=== PATIENT | female | born 1960 | race American Indian/Alaskan Native ===

== ENCOUNTER 2022-05-20 18:48 | Inpatient (IN) | payer SELFPAY ==
[2022-05-20] MEDS ORDERED: SODIUM CHLORIDE 0.9% 500 ML 500 ML IV ONE (18:51)
--- NOTE | 2022-05-20 18:53 | Emergency Department Report ---
ED General Adult HPI - General Chief complaint: Syncope Stated complaint: FALL/SYNCOPE Time Seen by Provider: 05/20/22 18:51 Source: patient, EMS (Verbal report received from emergency medical services. EMS documentation not available at time of chart dictation ), RN notes reviewed Mode of arrival: Stretcher Limitations: Physical Limitation - History of Present Illness Initial comments: The patient was evaluated in the emergency department for symptoms described in the history of present illness. He/she was evaluated in the context of the global COVID-19 pandemic, which necessitated consideration that the patient might be at risk for infection with the virus that causes COVID-19. Institutional protocols and algorithms that pertain to the evaluation of patients at risk for COVID-19 are in a state of rapid change based on information released by regulatory bodies including the CDC and federal and state organizations. These policies and algorithms were followed during the patient's care in the emergency department. Please note that these policies, procedures and recommendations changed on a rapid basis. This is a 62-year-old female with a body mass index of 41, and diabetes, who presents to the emergency department. The patient reports that she was in her usual state of health and had just gotten out of the shower, when she felt dizzy and lightheaded when attempting to use the bathroom. She denies antecedent headache, neck pain, chest pain, abdominal pain, shortness of breath. Apparently, she lost consciousness, and 911 was activated. Apparently as per emergency medical services, the patient was confused, with a facial droop, and slurred speech. It is now resolved. The patient only complains of hip pain and right leg pain. She denies headache, neck pain, chest pain, abdominal pain, shortness of breath, and she denies travel, surgery, immobilization, DVT and pulmonary embolism risk factors. -: Sudden Location: right, lower extremity Quality: aching Consistency: constant Improves with: other (Pain increases with palpation and range of motion. Decreases with rest.) - Related Data Allergies Allergy/AdvReac Type Severity Reaction Status Date / Time No Known Allergies Allergy Unverified 05/20/22 19:47 ED Review of Systems ROS: Stated complaint: FALL/SYNCOPE Other details as noted in HPI Constitutional: malaise. denies: fever Eyes: denies: eye discharge ENT: denies: epistaxis Respiratory: denies: wheezing Cardiovascular: syncope. denies: chest pain Gastrointestinal: denies: abdominal pain Musculoskeletal: back pain, arthralgia, myalgia Neurological: weakness Hematological/Lymphatic: denies: easy bleeding ED Physical Exam - General Limitations: Physical Limitation General appearance: alert, anxious, obese - Head Head exam: Present: atraumatic, normocephalic - Eye Eye exam: Present: normal appearance, EOMI, other (Visual acuity intact to finger counting, color perception, reading at a close distance). Absent: nystagmus - ENT ENT exam: Present: normal exam, normal orophraynx, mucous membranes moist, normal external ear exam - Neck Neck exam: Present: normal inspection, full ROM. Absent: tenderness, meningi smus - Respiratory Respiratory exam: Present: normal lung sounds bilaterally. Absent: respiratory distress, wheezes, rales, rhonchi, stridor, decreased breath sounds - Cardiovascular Cardiovascular Exam: Present: regular rate, normal rhythm, normal heart sounds. Absent: bradycardia, tachycardia, irregular rhythm, systolic murmur, diastolic murmur, rubs, gallop - GI/Abdominal GI/Abdominal exam: Present: soft. Absent: distended, tenderness, guarding, rebound, rigid, pulsatile mass - Extremities Exam Extremities exam: Present: normal inspection, full ROM (Full range of motion bilateral upper extremities and bilateral feet.), tenderness (There is right hip tenderness), joint swelling (Bilateral knee swelling.), other (2+ pulses noted i n the bilateral upper and lower extremities. There is no palpable cord. negative Homans sign. Muscular compartments are soft. The pelvis is stable.). Absent: pedal edema, calf tenderness - Back Exam Back exam: Present: normal inspection, paraspinal tenderness. Absent: tenderness, CVA tenderness (R), CVA tenderness (L) - Neurological Exam Neurological exam: Present: alert, oriented X3, other (No facial droop. Tongue midline. Extraocular movements intact bilaterally. Facial sensation intact to light touch in V1, V2, V3 distribution bilaterally. 5 and a 5 strength in 4 extremities. Sensation intact to light touch in 4 extremities.) - Psychiatric Psychiatric exam: Present: anxious - Skin Skin exam: Present: warm, dry, intact, normal color. Absent: rash ED Course Vital Signs 05/20/22 19:40 Temperature 98.8 F Pulse Rate 92 H Respiratory 100 H Rate Blood Pressure 158/70 - Reevaluation(s) Reevaluation #1: 05/20/22 19:54 Differential diagnosis, include but not limited to: Orthostasis, vagal event, structural cardiac disease, intracranial injury, TIA Assessment and plan: 62-year-old female status post loss of consciousness after attempting to use the bathroom and getting out of the shower, which was accompanied by a facial droop and slurred speech which is now resolved. Patient has a GCS of 15 and an NIH score of 0. She is not a tPA candidate. Her examination does not suggest a large vessel occlusion. Patient seen in conjunction with stroke neurologist, Dr. Rhys Galo, who agrees with the aforementioned. Patient is found to have a leukocytosis, which is likely a stress reaction. She appears to have an elevated troponin, which is likely a type II troponin leak. She also appears to have high glucose. CT scan of the brain shows no acute findings. X-rays thus far have demonstrated no fracture or dislocation. I suspect a vagal event with reactive laboratory studies, however, given age, vascular risk factors, symptoms, overall clinical presentation, we will treat with fluids, insulin, and aspirin, and admit patient to the medical service. 05/20/22 20:20 Discussed all findings with patient and daughter with patient's permission. They are agreeable to admission and hospitalization. Moving 4 extremities. Daughter offers additional history. Appears to have possible early onset dementia, disability, poor mobility, and is currently not insured. Extensive discussion had with daughter regarding options including Medicaid, and affordable care [email or web address]. Patient may also benefit from physical therapy/rehabilitation, discussed this with family and patient, defer to inpatient team to coordinate physical therapy evaluation 05/20/22 21:05 Patient passed swallow screen. Oncoming ER physician to contact hospital physician sylvester to admit to the medical service. ED Medical Decision Making - Lab Data Result diagrams: 05/20/22 19:02 05/20/22 19:02 Vital Signs 05/20/22 19:40 Temperature 98.8 F Pulse Rate 92 H Respiratory 100 H Rate Blood Pressure 158/70 Lab Results 05/20/22 05/20/22 05/20/22 Range/Units 19:02 19:02 19:02 WBC 18.9 H (4.5-11.0) K/mm3 RBC 4.67 (3.65-5.03) M/mm3 Hgb 13.7 (10.1-14.3) gm/dl Hct 41.6 (30.3-42.9) % MCV 89 (79-97) fl MCH 29 (28-32) pg MCHC 33 (30-34) % RDW 12.2 L (13.2-15.2) % Plt Count 333 (140-440) K/mm3 Lymph % (Auto) 8.7 L (13.4-35.0) % [place] % (Auto) 8.1 H (0.0-7.3) % Eos % (Auto) 0.3 (0.0-4.3) % Baso % (Auto) 0.4 (0.0-1.8) % Lymph # (Auto) 1.6 (1.2-5.4) K/mm3 [place] # (Auto) 1.5 H (0.0-0.8) K/mm3 Eos # (Auto) 0.0 (0.0-0.4) K/mm3 Baso # (Auto) 0.1 (0.0-0.1) K/mm3 Seg Neutrophils % 82.5 H (40.0-70.0) % Seg Neutrophils # 15.6 H (1.8-7.7) K/mm3 PT 14.0 (12.2-14.9) Sec. INR 0.97 (0.87-1.13) Sodium 138 (137-145) mmol/L Potassium 3.6 (3.6-5.0) mmol/L Chloride 97.0 L (98-107) mmol/L Carbon Dioxide 25 (22-30) mmol/L Anion Gap 20 mmol/L BUN 16 (7-17) mg/dL Creatinine 0.9 (0.6-1.2) mg/dL Estimated GFR > 60 ml/min BUN/Creatinine Ratio 18 % Glucose 307 H (65-100) mg/dL Calcium 9.7 (8.4-10.2) mg/dL Magnesium 1.80 (1.7-2.3) mg/dL Total Bilirubin 0.60 (0.1-1.2) mg/dL AST 16 (5-40) units/L ALT 10 (7-56) units/L Alkaline Phosphatase 91 (35-129) units/L Total Creatine Kinase 237 H (30-135) units/L CK-MB (CK-2) 18.3 H (0.0-4.0) ng/mL CK-MB (CK-2) Rel Index 7.7 H (0-4) Troponin T 0.097 H (0.00-0.029) ng/mL Total Protein 8.0 (6.3-8.2) g/dL Albumin 3.6 L (3.9-5) g/dL Albumin/Globulin Ratio 0.8 % TSH (0.270-4.200) mlU/mL Plasma/Serum Alcohol (0-0.07) % 05/20/22 05/20/22 05/20/22 Range/Units 19:02 19:02 19:02 WBC (4.5-11.0) K/mm3 RBC (3.65-5.03) M/mm3 Hgb (10.1-14.3) gm/dl Hct (30.3-42.9) % MCV (79-97) fl MCH (28-32) pg MCHC (30-34) % RDW (13.2-15.2) % Plt Count (140-440) K/mm3 Lymph % (Auto) (13.4-35.0) % [place] % (Auto) (0.0-7.3) % Eos % (Auto) (0.0-4.3) % Baso % (Auto) (0.0-1.8) % Lymph # (Auto) (1.2-5.4) K/mm3 [place] # (Auto) (0.0-0.8) K/mm3 Eos # (Auto) (0.0-0.4) K/mm3 Baso # (Auto) (0.0-0.1) K/mm3 Seg Neutrophils % (40.0-70.0) % Seg Neutrophils # (1.8-7.7) K/mm3 PT (12.2-14.9) Sec. INR (0.87-1.13) Sodium (137-145) mmol/L Potassium (3.6-5.0) mmol/L Chloride (98-107) mmol/L Carbon Dioxide (22-30) mmol/L Anion Gap mmol/L BUN (7-17) mg/dL Creatinine (0.6-1.2) mg/dL Estimated GFR ml/min BUN/Creatinine Ratio % Glucose (65-100) mg/dL Calcium (8.4-10.2) mg/dL Magnesium (1.7-2.3) mg/dL Total Bilirubin (0.1-1.2) mg/dL AST (5-40) units/L ALT (7-56) units/L Alkaline Phosphatase (35-129) units/L Total Creatine Kinase 241 H (30-135) units/L CK-MB (CK-2) (0.0-4.0) ng/mL CK-MB (CK-2) Rel Index (0-4) Troponin T (0.00-0.029) ng/mL Total Protein (6.3-8.2) g/dL Albumin (3.9-5) g/dL Albumin/Globulin Ratio % TSH 3.810 (0.270-4.200) mlU/mL Plasma/Serum Alcohol < 0.01 (0-0.07) % - EKG Data -: EKG Interpreted by Hi EKG shows normal: sinus rhythm Rate: normal - EKG Data 05/20/22 19:50 8 EKG is interpreted at 19: 48 This is a sinus rhythm, with a rate of 77 bpm. There is a leftward axis deviation. There is normal P wave axis. There is motion artifact. There is left ventricular hypertrophy. This is an abnormal EKG. This is not a STEMI. There is normal P wave axis. The QTC is 4 3 6 ms. 05/20/22 19:51 There is no prior EKG available for comparison - Radiology Data Radiology results: pending, report reviewed, image reviewed NONENHANCED CT SCAN OF THE HEAD: INDICATION / CLINICAL INFORMATION: 62 years Female; Syncope, slurred speech, facial droop, now resolve. TECHNIQUE: Routine CT head without contrast. All CT scans at this location are performed using CT dose reduction for ALARA by means of automated exposure control. COMPARISON: None. FINDINGS: BRAIN / INTRACRANIAL CONTENTS: No intracerebral hemorrhage or stroke mimics No acute hemorrhage, mass effect, midline shift, hydrocephalus, or acute, large territorial infarct. Chronic lacune in the body of left caudate; lateral ventricles are generous, disproportionate to high convexity cortical sulci; temporal horns not dilated in par with the lateral ventricles; corpus callosum normal periventricular. Subtle periventricular low-attenuation areas due to chronic small vessel disease Low-attenuation areas due to chronic small vessel disease CRANIOCERVICAL JUNCTION: No significant abnormality. ORBITS: No significant abnormality of visualized orbits. SINUSES / MASTOIDS: Minimal mucosal thickening in the left axillary sinus and some of the ethmoid air cells ADDITIONAL FINDINGS: None. IMPRESSION: No intracerebral hemorrhage No acute focal parenchymal lesion in the brain Signer Name: Guilherme Sol MD Signed: 05/20/2022 6:41 PM Workstation Name: [id number] CHEST 1 VIEW 05/20/2022 7:38 PM INDICATION / CLINICAL INFORMATION: Fall, right leg pain. COMPARISON: None available. FINDINGS: SUPPORT DEVICES: None. HEART / MEDIASTINUM: No significant abnormality. LUNGS / PLEURA: No significant pulmonary or pleural abnormality. No pneumothorax. ADDITIONAL FINDINGS: No significant additional findings. IMPRESSION: 1. No acute findings. Right femur 5 views INDICATION: Pain FINDINGS: Degenerative change right hip. No periosteal reaction is seen. No soft tissue abnormality is seen. Advanced degenerative change in the right knee. Pelvis one view INDICATION: Pain FINDI NGS: Degenerative change bilateral hips. Degenerative change in lower lumbar spine. Bowel loops obscure visualization. No displaced fracture. Signer Name: Jean-Paul Macias MD Signed: 05/20/2022 7:03 PM Workstation Name: [email or web address] Critical care attestation.: If time is entered above; I have spent that time in minutes in the direct care of this critically ill patient, excluding procedure time. ED Disposition Clinical Impression: Syncope, Hyperglycemia, TIA (transient ischemic attack) Disposition: 09 ADMITTED INPATIENT Is pt being admited?: Yes Does the pt Need Aspirin: No Condition: Good Instructions: Syncope (ED)
[2022-05-20 19:28] LABS: Basophils # (Auto) 0.1 K/mm3 (0.0-0.1); Basophils % (Auto) 0.4 % (0.0-1.8); Eosinophils % (Auto) 0.3 % (0.0-4.3); Hematocrit 41.6 % (30.3-42.9); Hemoglobin 13.7 gm/dl (10.1-14.3); Lymphocytes # (Auto) 1.6 K/mm3 (1.2-5.4); Lymphocytes % (Auto) 8.7 % (13.4-35.0); Mean Corpuscular HGB Conc 33 % (30-34); Mean Corpuscular Volume 89 fl (79-97); Monocytes # (Auto) 1.5 K/mm3 (0.0-0.8); Monocytes % (Auto) 8.1 % (0.0-7.3); Platelet Count 333 K/mm3 (140-440); Red Blood Count 4.67 M/mm3 (3.65-5.03); Red Cell Distribution Width 12.2 % (13.2-15.2)
[2022-05-20 19:35] LABS: Creatine Kinase MB 18.3 ng/mL (0.0-4.0)
[2022-05-20 19:36] LABS: Alanine Aminotransferase 10 units/L (7-56); Albumin 3.6 g/dL (3.9-5); BUN/Creatinine Ratio 18; Blood Urea Nitrogen 16 mg/dL (7-17); Calcium 9.7 mg/dL (8.4-10.2); Hemolysis Index 5
--- NOTE | 2022-05-20 19:45 | Cat Scan Report ---
NONENHANCED CT SCAN OF THE HEAD: INDICATION / CLINICAL INFORMATION: 62 years Female; Syncope, slurred speech, facial droop, now resolve. TECHNIQUE: Routine CT head without contrast. All CT scans at this location are performed using CT dos e reduction for ALARA by means of automated exposure control. COMPARISON: None. FINDINGS: BRAIN / INTRACRANIAL CONTENTS: No intracerebral hemorrhage or stroke mimics No acute hemorrhage, mass effect, midline shift, hydrocephalus, or acute, large territorial infarct. Chronic lacune in the body of left caudate; lateral ventricles are generous, disproportionate to hig h convexity cortical sulci; temporal horns not dilated in par with the lateral ventricles; corpus bandar losum normal periventricular. Subtle periventricular low-attenuation areas due to chronic small vesse l disease Low-attenuation areas due to chronic small vessel disease CRANIOCERVICAL JUNCTION: No significant abnormality. ORBITS: No significant abnormality of visualized orbits. SINUSES / MASTOIDS: Minimal mucosal thickening in the left axillary sinus and some of the ethmoid air cells ADDITIONAL FINDINGS: None. IMPRESSION: No intracerebral hemorrhage No acute focal parenchymal lesion in the brain Signer Name: Guilherme Sol MD Signed: 05/20/2022 7:41 PM Workstation Name: [id number]
[2022-05-20 19:48] LABS: INR 0.97 (0.87-1.13)
[2022-05-20] MEDS ORDERED: INSULIN REGULAR, HUMAN 100 UNITS/1 ML IV ONE (19:49)
--- NOTE | 2022-05-20 20:08 | XRay Report ---
CHEST 1 VIEW 05/20/2022 7:38 PM INDICATION / CLINICAL INFORMATION: Fall, right leg pain. COMPARISON: None available. FINDINGS: SUPPORT DEVICES: None. HEART / MEDIASTINUM: No significant abnormality. LUNGS / PLEURA: No significant pulmonary or pleural abnormality. No pneumothorax. ADDITIONAL FINDINGS: No significant additional findings. IMPRESSION: 1. No acute findings. Right femur 5 views INDICATION: Pain FINDINGS: Degenerative change right hip. No periosteal reaction is seen. No soft tissue abnormality i s seen. Advanced degenerative change in the right knee. Pelvis one view INDICATION: Pain FINDINGS: Degenerative change bilateral hips. Degenerative change in lower lumbar spine. Bowel loops obscure visualization. No displaced fracture. Signer Name: Jean-Paul Macias MD Signed: 05/20/2022 8:03 PM Workstation Name: [id number]
[2022-05-20] MEDS ORDERED: SODIUM CHLORIDE 0.9% 1000 ML 1,000 ML ONE (20:15)
[2022-05-20] MEDS ORDERED: ACETAMINOPHEN 325 MG TAB PO ONE (20:49)
[2022-05-20] MEDS ORDERED: MORPHINE 2 MG/1 ML INJ IV PRN ×2 (22:19)
[2022-05-20] MEDS ORDERED: PROMETHAZINE 25 MG RECT SUPP PR PRN (22:19)
[2022-05-20] MEDS ORDERED: DEXTROSE 50% IN WATER (25GM) 50 ML SYRINGE IV PRN (22:19)
[2022-05-20] MEDS ORDERED: ACETAMINOPHEN 325 MG TAB PO PRN ×2 (22:19)
[2022-05-20] MEDS ORDERED: MORPHINE 4 MG/1 ML INJ IV PRN ×2 (22:19)
[2022-05-20] MEDS ORDERED: ONDANSETRON 4 MG/2 ML INJ IV PRN ×2 (22:19)
[2022-05-20] MEDS ORDERED: METOCLOPRAMIDE 10 MG TAB PO PRN (22:19)
[2022-05-20] MEDS ORDERED: MAGNESIUM HYDROXIDE (MOM) ORAL LIQD UDC PO PRN ×2 (22:19)
--- NOTE | 2022-05-20 22:34 | History and Physical Report ---
History of Present Illness Date of examination: 05/20/22 Date of admission: 05/20/2022 Chief complaint: 62-year-old -[place] female with known history of diabetes mellitus, hypertension and asthma presenting to the emergency room today after having a syncopal episode while in the restroom at home. Patient states she felt dizzy and lightheaded while she was in the bathroom. She subsequently lost consciousness EMS was called. She denied any headache, chest pain or shortness of breath, no nausea or vomiting prior to this episode. Patient has denied any history of seizure disorder. According to EMS patient was said to be confused, had a facial droop and slurred speech initially. Symptoms has now resolved upon arrival in the emergency room. Work-up in the emergency room today, lab reveals leukocytosis of 18.9, serum creatinine kinase of 241 troponin 0.097, blood glucose was 307. Chest x-ray, head CT and pelvic x-rays were all unremarkable. Urinalysis is still being awaited. Patient is being admitted for syncope, possible TIA and hypoglycemia. Past History Past Medical History: diabetes, hypertension, other (Asthma) Past Surgical History: No surgical history Social history: no significant social history Family history: no significant family history Medications and Allergies Allergies Allergy/AdvReac Type Severity Reaction Status Date / Time No Known Allergies Allergy Unverified 05/20/22 19:47 Active Meds: Active Medications Acetaminophen (Acetaminophen 325 Mg Tab) 650 mg PO Q4H PRN PRN Reason: Pain MILD(1-3)/Fever >100.5/BOSE Acetaminophen (Acetaminophen 325 Mg Tab) 650 mg PO Q4H PRN PRN Reason: Pain, Mild (1-3) Aspirin (Aspirin 325 Mg Tab) 325 mg PO QDAY MANFRED Atorvastatin Calcium (Atorvastatin 40 Mg Tab) 40 mg PO QHS MANFRED Bisacodyl (Bisacodyl 10 Mg Rect Supp) 10 mg OH QDAY PRN PRN Reason: Constipation Dextrose (Dextrose 50% In Water (25gm) 50 Ml Syringe) 50 ml IV Q30MIN PRN; Protocol PRN Reason: Hypoglycemia Dextrose (Dextrose 50% In Water (25gm) 50 Ml Syringe) 50 ml IV Q30MIN PRN; Protocol PRN Reason: Hypoglycemia Insulin Human Lispro (Insulin Lispro 100 Unit/Ml) 0 unit SUB-Q ACHS MANFRED; Protocol Magnesium Hydroxide (Magnesium Hydroxide (Mom) Oral Liqd Udc) 30 ml PO Q4H PRN PRN Reason: Constipation Magnesium Hydroxide (Magnesium Hydroxide (Mom) Oral Liqd Udc) 30 ml PO Q4H PRN PRN Reason: Constipation Metoclopramide HCl (Metoclopramide 10 Mg Tab) 10 mg PO Q6H PRN PRN Reason: Nausea And Vomiting Morphine Sulfate (Morphine 2 Mg/1 Ml Inj) 2 mg IV Q4H PRN PRN Reason: Pain, Moderate (4-6) Morphine Sulfate (Morphine 4 Mg/1 Ml Inj) 4 mg IV Q4H PRN PRN Reason: Pain , Severe (7-10) Morphine Sulfate (Morphine 2 Mg/1 Ml Inj) 2 mg IV Q4H PRN PRN Reason: Pain, Moderate (4-6) Morphine Sulfate (Morphine 4 Mg/1 Ml Inj) 4 mg IV Q4H PRN PRN Reason: Pain , Severe (7-10) Ondansetron HCl (Ondansetron 4 Mg/2 Ml Inj) 4 mg IV Q8H PRN PRN Reason: Nausea And Vomiting Ondansetron HCl (Ondansetron 4 Mg/2 Ml Inj) 4 mg IV Q8H PRN PRN Reason: Nausea And Vomiting Promethazine HCl (Promethazine 25 Mg Rect Supp) 25 mg OH Q6H PRN PRN Reason: Nausea And Vomiting Sodium Chloride (Sodium Chloride 0.9% 10 Ml Flush Syringe) 10 ml IV BID MANFRED Sodium Chloride (Sodium Chloride 0.9% 10 Ml Flush Syringe) 10 ml IV PRN PRN PRN Reason: LINE FLUSH Sodium Chloride (Sodium Chloride 0.9% 10 Ml Flush Syringe) 10 ml INJ PRN PRN PRN Reason: LINE FLUSH Review of Systems Constitutional: no fever, no chills Ears, nose, mouth and throat: no nasal congestion, no sore throat Cardiovascular: no chest pain, no palpitations Gastrointestinal: no nausea, no vomiting, no diarrhea Genitourinary Female: no pelvic pain, no flank pain, no dysuria, no hematuria Musculoskeletal: no neck pain, no low back pain Integumentary: no rash, no pruritis Neurological: syncope, headaches, change in speech, balance difficulties Psychiatric: no anxiety, no depression Endocrine: no polyphagia, no polydipsia, no polyuria, no nocturia Exam - Constitutional Vitals: Temp Pulse Resp BP Pulse Ox 98.8 F 92 H 100 H 158/70 05/20/22 19:40 05/20/22 19:40 05/20/22 19:40 05/20/22 19:40 General appearance: Present: no acute distress, well-nourished, obese - EENT Eyes: Present: PERRL, EOM intact. Absent: scleral icterus ENT: hearing intact, clear oral mucosa, dentition normal - Neck Neck: Present: supple, normal ROM - Respiratory Respiratory effort: normal Respiratory: bilateral: CTA - Cardiovascular Rhythm: regular Heart Sounds: Present: S1 & S2. Absent: gallop, systolic murmur, diastolic murmur, rub, click - Extremities Extremities: no ischemia, pulses intact, pulses symmetrical, No edema, normal temperature, normal color, Full ROM Peripheral Pulses: within normal limits - Abdominal General gastrointestinal: Present: soft, non-tender, non-distended, normal bowel sounds. Absent: mass - Integumentary Integumentary: Present: clear, warm, dry, normal turgor. Absent: rash - Musculoskeletal Musculoskeletal: strength equal bilaterally - Psychiatric Psychiatric: appropriate mood/affect, intact judgment & insight, memory intact, cooperative - Neurologic Neurologic: CNII-XII intact, moves all extremities HEART Score - HEART Score Troponin: Troponin T 0.097 ng/mL (0.00-0.029) H 05/20/22 19:02 Results - Labs CBC & Chem 7: 05/20/22 19:02 05/20/22 19:02 Labs: Abnormal lab results 05/20/22 05/20/22 05/20/22 Range/Units 19:02 19:02 19:02 WBC 18.9 H (4.5-11.0) K/mm3 RDW 12.2 L (13.2-15.2) % Lymph % (Auto) 8.7 L (13.4-35.0) % [place] % (Auto) 8.1 H (0.0-7.3) % [place] # (Auto) 1.5 H (0.0-0.8) K/mm3 Seg Neutrophils % 82.5 H (40.0-70.0) % Seg Neutrophils # 15.6 H (1.8-7.7) K/mm3 Chloride 97.0 L (98-107) mmol/L Glucose 307 H (65-100) mg/dL Total Creatine Kinase 237 H 241 H (30-135) units/L CK-MB (CK-2) 18.3 H (0.0-4.0) ng/mL CK-MB (CK-2) Rel Index 7.7 H (0-4) Troponin T 0.097 H (0.00-0.029) ng/mL Albumin 3.6 L (3.9-5) g/dL Assessment and Plan Assessment: 1. Syncope 2. Possible TIA 3. Hyperglycemia 4. History of asthma-stable 5. Leukocytosis 6. Elevated troponin Plan: 1. Patient admitted and placed on telemetry. 2. We will schedule for carotid Doppler, echocardiogram and MRI of the brain. 3. We will consult neurology for evaluation and recommendations 4. Patient started on daily aspirin and statin. 5. Patient placed on sliding scale insulin. We will monitor Accu-Cheks 6. We will check UA 7. We will check repeat troponin levels. Cardiology will be consulted as needed. DVT prophylaxis: Subcutaneous heparin CODE STATUS: Full code
[2022-05-21 04:27] LABS: Bilirubin,Urine NEG (Negative); Blood,Urine NEG (Negative); Color,Urine Yellow (Yellow); Protein,Urine <15 mg/dL mg/dL (Negative); Urobilinogen,Urine < 2.0 mg/dL (<2.0)
[2022-05-21 04:28] LABS: Bacteria,Urine 1+ /HPF (Negative)
[2022-05-21 04:47] LABS: Basophils % (Auto) 0.3 % (0.0-1.8); Eosinophils # (Auto) 0.1 K/mm3 (0.0-0.4); Eosinophils % (Auto) 0.5 % (0.0-4.3); Hematocrit 34.9 % (30.3-42.9); Hemoglobin 12.3 gm/dl (10.1-14.3); Lymphocytes # (Auto) 3.7 K/mm3 (1.2-5.4); Lymphocytes % (Auto) 23.5 % (13.4-35.0); Mean Corpuscular HGB Conc 35 % (30-34); Mean Corpuscular Volume 87 fl (79-97); Monocytes # (Auto) 1.6 K/mm3 (0.0-0.8); Monocytes % (Auto) 10.3 % (0.0-7.3); Platelet Count 277 K/mm3 (140-440); Red Cell Distribution Width 12.1 % (13.2-15.2)
[2022-05-21 05:03] LABS: Blood Urea Nitrogen 16 mg/dL (7-17); Calcium 9.1 mg/dL (8.4-10.2); Hemolysis Index 7
[2022-05-21 05:08] LABS: BUN/Creatinine Ratio 23
[2022-05-21] MEDS ORDERED: POTASSIUM CHLORIDE ER 20 MEQ TAB PO NR (07:07)
--- NOTE | 2022-05-21 09:10 | Vascular Lab Report ---
DUPLEX DOPPLER ULTRASOUND CAROTID, BILATERAL INDICATION / CLINICAL INFORMATION: stroke. COMPARISON: None available. FINDINGS: RIGHT CAROTID: Mild intimal hyperplasia in the CCA and soft plaque in the carotid bulb - PLAQUE ESTIMATE (%): < 50% - CCA velocity: 93 cm/sec. - ICA peak systolic velocity: 101 cm/sec. - ICA/CCA PSV Ratio: 1.1 Right Vertebral Artery: Antegrade flow. LEFT CAROTID: Mild intimal hyperplasia in the CCA and soft plaque in the carotid bulb - PLAQUE ESTIMATE (%): < 50% - CCA velocity: 81 cm/sec. - ICA peak systolic velocity: 71 cm/sec. - ICA/CCA PSV Ratio: 0.9 Left Vertebral Artery: Antegrade flow. IMPRESSION: 1. Right Internal Carotid Artery: Less than 50% diameter stenosis. 2. Left Internal Carotid Artery: Less than 50% diameter stenosis. Velocity criteria are extrapolated from diameter data as defined by the Society of Radiologists in Ul trasound Consensus Conference, Radiology 2003; 229;340-346. NO STENOSIS (NORMAL) - Plaque = none; ICA PSV < 125 cm/sec; ICA/CCA PSV Ratio < 2.0 <50% STENOSIS - Plaque < 50%; ICA PSV < 125 cm/sec; ICA/CCA PSV Ratio < 2.0 50-69% STENOSIS - Plaque > 50%; ICA PSV = 125-230 cm/sec; ICA/CCA PSV Ratio = 2.0-4.0 >70% BUT <100% STENOSIS - Plaque > 50%; ICA PSV > 230 cm/sec; ICA/CCA PSV Ratio > 4.0 NEAR OCCLUSION - Plaque = visible lumen; ICA PSV = high/low/none; ICA/CCA PSV Ratio = variable TOTAL OCCLUSION - Plaque = no lumen; ICA PSV = none; ICA/CCA PSV Ratio = N/A Signer Name: Maciej Laura Jr, MD Signed: 05/21/2022 9:05 AM Workstation Name: [id number]
--- NOTE | 2022-05-21 10:26 | Magnetic Resonance Report ---
MR brain wo con INDICATION / CLINICAL INFORMATION: 62 years Female; stroke. TECHNIQUE: Multiplanar, multisequence MR images of the brain were obtained. COMPARISON: The study is compared to the previous CT of 05/20/2022. FINDINGS: BRAIN / INTRACRANIAL CONTENTS: The motion degrades the image quality despite repeat imaging. However, there are hyperintense foci involving cerebral and pontine white matter on the FLAIR sequences most consistent with microvascular angiopathy. The diffusion imaging reveals no evidence of acute infarcti on. There is mild cerebral atrophy and mild prominence of the ventricular system. No extra-axial fluid co llections or significant mass effect is identified. CRANIOCERVICAL JUNCTION: No significant abnormality. VASCULAR FLOW-VOIDS: No significant abnormality. ORBITS: No significant abnormality of visualized orbits. SINUSES / MASTOIDS: This mild mucosal thickening within the paranasal sinuses at. There also mild inf lammatory changes with fluid signal along the inferior left mastoid air cells. ADDITIONAL FINDINGS: None. IMPRESSION: 1. There is mild microvascular angiopathy and cerebral atrophy without evidence of recent infarction. 2. There are also mild inflammatory changes within the paranasal sinuses and left mastoid air cells. Signer Name: Nasir Bray MD Signed: 05/21/2022 10:21 AM Workstation Name: [id number]
[2022-05-21] MEDS: INSULIN LISPRO 100 UNIT/ML SUB-Q SCH ×4 (12:02→23:36)
[2022-05-21] MEDS: ASPIRIN 325 MG TAB PO SCH (12:02)
--- NOTE | 2022-05-21 13:28 | Progress Note ---
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 #Peripheral neuropathy -patient takes 10U lantus qhs at home; will continue SSI + 5U lantus qhs -increased home gabapentin dose to 600mg TID #Leukocytosis -afebrile, no other signs of infection -UA unremarkable -will continue to monitor -will not start abx at this time due to low suspicion for infection #Elevated troponin -troponin 0.097 -no chest pain at this time -will order repeat #Volume depletion -hemoconcentration of labs -continue IVFs #History of asthma-stable -not in acute exacerbation #Advanced care planning -Disease education conducted, care plan discussed, diagnoses discussed, prog nosis discussed, and patient acknowledges understanding with care plan -Time: +30 min . History Interval history: Patient seen and examined at bedside with family present. Patient has no recollection of the events prior to fall. Patient's daughter says that the patient did not follow her commands, similar to her presentation during previous stroke. Patient has also been unable to walk due to diabetic neuropathy and swelling. Hospitalist Physical - Physical exam Narrative exam: GENERAL: Well-developed well-nourished. Sitting on the side of the bed in no acute distress. HEENT: Normocephalic. Atraumatic. NECK: Supple. CHEST/LUNGS: CTAB on room air HEART/CARDIOVASCULAR: RRR. No murmur, rubs or gallops appreciated. ABDOMEN: +BS. NT/ND. SKIN: No rashes noted. NEURO: No focal motor deficit. Follows all commands and is ambulatory. MUSCULOSKELETAL: No joint effusion EXTREMITIES: No cyanosis, cubbing or edema. PSYCH: Cooperative. - Constitutional Vitals: Temp Pulse Resp BP Pulse Ox 98.8 F 64 16 145/64 100 05/20/22 19:40 05/21/22 08:01 05/21/22 08:01 05/21/22 08:01 05/21/22 08:01 General appearance: Present: no acute distress, well-nourished, obese HEART Score - HEART Score Troponin: Troponin T 0.097 ng/mL (0.00-0.029) H 05/20/22 19:02 Results - Labs CBC & Chem 7: 05/21/22 04:19 05/21/22 04:19 Labs: Laboratory Last Values WBC 15.8 K/mm3 (4.5-11.0) H 05/21/22 04:19 RBC 4.00 M/mm3 (3.65-5.03) 05/21/22 04:19 Hgb 12.3 gm/dl (10.1-14.3) 05/21/22 04:19 Hct 34.9 % (30.3-42.9) D 05/21/22 04:19 MCV 87 fl (79-97) 05/21/22 04:19 MCH 31 pg (28-32) 05/21/22 04:19 MCHC 35 % (30-34) H 05/21/22 04:19 RDW 12.1 % (13.2-15.2) L 05/21/22 04:19 Plt Count 277 K/mm3 (140-440) 05/21/22 04:19 Lymph % (Auto) 23.5 % (13.4-35.0) 05/21/22 04:19 Alexander % (Auto) 10.3 % (0.0-7.3) H 05/21/22 04:19 Eos % (Auto) 0.5 % (0.0-4.3) 05/21/22 04:19 Baso % (Auto) 0.3 % (0.0-1.8) 05/21/22 04:19 Lymph # (Auto) 3.7 K/mm3 (1.2-5.4) 05/21/22 04:19 Alexander # (Auto) 1.6 K/mm3 (0.0-0.8) H 05/21/22 04:19 Eos # (Auto) 0.1 K/mm3 (0.0-0.4) 05/21/22 04:19 Baso # (Auto) 0.0 K/mm3 (0.0-0.1) 05/21/22 04:19 Seg Neutrophils % 65.4 % (40.0-70.0) 05/21/22 04:19 Seg Neutrophils # 10.3 K/mm3 (1.8-7.7) H 05/21/22 04:19 PT 14.0 Sec. (12.2-14.9) 05/20/22 19:02 INR 0.97 (0.87-1.13) 05/20/22 19:02 Sodium 140 mmol/L (137-145) 05/21/22 04:19 Potassium 3.2 mmol/L (3.6-5.0) L 05/21/22 04:19 Chloride 101.5 mmol/L (98-107) 05/21/22 04:19 Carbon Dioxide 28 mmol/L (22-30) 05/21/22 04:19 Anion Gap 14 mmol/L 05/21/22 04:19 BUN 16 mg/dL (7-17) 05/21/22 04:19 Creatinine 0.7 mg/dL (0.6-1.2) 05/21/22 04:19 Estimated GFR > 60 ml/min 05/21/22 04:19 BUN/Creatinine Ratio 23 % 05/21/22 04:19 Glucose 171 mg/dL (65-100) H 05/21/22 04:19 Calcium 9.1 mg/dL (8.4-10.2) 05/21/22 04:19 Magnesium 1.80 mg/dL (1.7-2.3) 05/20/22 19:02 Total Bilirubin 0.60 mg/dL (0.1-1.2) 05/20/22 19:02 AST 16 units/L (5-40) 05/20/22 19:02 ALT 10 units/L (7-56) 05/20/22 19:02 Alkaline Phosphatase 91 units/L (35-129) 05/20/22 19:02 Total Creatine Kinase 237 units/L (30-135) H 05/20/22 19:02 Total Creatine Kinase 241 units/L (30-135) H 05/20/22 19:02 CK-MB (CK-2) 18.3 ng/mL (0.0-4.0) H 05/20/22 19:02 CK-MB (CK-2) Rel Index 7.7 (0-4) H 05/20/22 19:02 Troponin T 0.097 ng/mL (0.00-0.029) H 05/20/22 19:02 Total Protein 8.0 g/dL (6.3-8.2) 05/20/22 19:02 Albumin 3.6 g/dL (3.9-5) L 05/20/22 19:02 Albumin/Globulin Ratio 0.8 % 05/20/22 19:02 TSH 3.810 mlU/mL (0.270-4.200) 05/20/22 19:02 Urine Color Yellow (Yellow) 05/21/22 04:16 Urine Turbidity Clear (Clear) 05/21/22 04:16 Urine pH 6.0 (5.0-7.0) 05/21/22 04:16 Ur Specific Bullock 1.010 (1.003-1.030) 05/21/22 04:16 Urine Protein <15 mg/dl mg/dL (Negative) 05/21/22 04:16 Urine Glucose (UA) >=500 mg/dL (Negative) 05/21/22 04:16 Urine Ketones Neg mg/dL (Negative) 05/21/22 04:16 Urine Blood Neg (Negative) 05/21/22 04:16 Urine Nitrite Neg (Negative) 05/21/22 04:16 Urine Bilirubin Neg (Negative) 05/21/22 04:16 Urine Urobilinogen < 2.0 mg/dL (<2.0) 05/21/22 04:16 Ur Leukocyte Esterase Neg (Negative) 05/21/22 04:16 Urine WBC (Auto) 1.0 /HPF (0.0-6.0) 05/21/22 04:16 Urine RBC (Auto) 1.0 /HPF (0.0-6.0) 05/21/22 04:16 U Epithel Cells (Auto) 1.0 /HPF (0-13.0) 05/21/22 04:16 Urine Bacteria (Auto) 1+ /HPF (Negative) 05/21/22 04:16 Plasma/Serum Alcohol < 0.01 % (0-0.07) 05/20/22 19:02 Active Medications - Current Medications Current Medications: Generic Name Dose Route Start Last Admin Trade Name Freq PRN Reason Stop Dose Admin Acetaminophen 650 mg 05/20/22 22:19 Acetaminophen 325 Mg Tab PO Q4H PRN Pain, Mild (1-3) Aspirin 325 mg 05/21/22 10:00 05/21/22 12:02 Aspirin 325 Mg Tab PO 325 mg QDAY MANFRED Administration Atorvastatin Calcium 40 mg 05/21/22 22:00 Atorvastatin 40 Mg Tab PO QHS MANFRED Bisacodyl 10 mg 05/20/22 22:19 Bisacodyl 10 Mg Rect Supp OK QDAY PRN Constipation Dextrose 0 ml 05/20/22 22:19 Dextrose 50% In Water (25gm) 50 Ml Syringe IV Q30MIN PRN Hypoglycemia Protocol Insulin Human Lispro 0 unit 05/21/22 07:30 05/21/22 12:02 Insulin Lispro 100 Unit/Ml SUB-Q 2 unit ACHS MANFRED Administration Protocol Magnesium Hydroxide 30 ml 05/20/22 22:19 Magnesium Hydroxide (Mom) Oral Liqd Udc PO Q4H PRN Constipation Metoclopramide HCl 10 mg 05/20/22 22:19 Metoclopramide 10 Mg Tab PO Q6H PRN Nausea And Vomiting Morphine Sulfate 2 mg 05/20/22 22:19 Morphine 2 Mg/1 Ml Inj IV Q4H PRN Pain, Moderate (4-6) Morphine Sulfate 4 mg 05/20/22 22:19 Morphine 4 Mg/1 Ml Inj IV Q4H PRN Pain , Severe (7-10) Morphine Sulfate 2 mg 05/20/22 22:19 Morphine 2 Mg/1 Ml Inj IV Q4H PRN Pain, Moderate (4-6) Ondansetron HCl 4 mg 05/20/22 22:19 Ondansetron 4 Mg/2 Ml Inj IV Q8H PRN Nausea And Vomiting Promethazine HCl 25 mg 05/20/22 22:19 Promethazine 25 Mg Rect Supp [place] Q6H PRN Nausea And Vomiting Sodium Chloride 10 ml 05/21/22 10:00 05/21/22 12:03 Sodium Chloride 0.9% 10 Ml Flush Syringe IV 10 ml BID MANFRED Administration Sodium Chloride 10 ml 05/20/22 22:19 Sodium Chloride 0.9% 10 Ml Flush Syringe IV PRN PRN LINE FLUSH Nutrition/Malnutrition Assess - Dietary Evaluation Nutrition/Malnutrition Findings: Nutrition Notes Start: 05/21/22 10:38 Freq: Status: Active Protocol: Document 05/21/22 10:38 ANNA MARIE (Rec: 05/21/22 10:40 ANNA MARIE [id number]) Nutrition Notes Need for Assessment generated from: MD Order,Education Initial or Follow up Brief Note Current Diagnosis Diabetes,Hypertension Other Pertinent Diagnosis Syncope, ?TIA Current Diet Cardiac/Consistent CHO Labs/Tests BG 171 Weight Status Morbidly Obese Subjective/Other Information RD consulted for diet education and NTR recommendations. Pt in ED at this time. Burn Absent Trauma Absent Nutrition Intervention Follow-Up By: 05/25/22 Additional Comments F/U: diet education needs
--- NOTE | 2022-05-21 14:51 | Consultation ---
History of Present Illness Consult date: 05/21/22 Reason for Consult: Seizure Chief complaint: I passed out. History of present illness: 62 yo right-handed, female with htn, dm, asthma, hx of "stroke", who presents with an episode where she was noted with feeling dizzy, unsteady, and light- headed as she was stepping out of the shower. Then, soon afterwards, while se ated on the toilet seat (not using it), she was noted to "pass out". All witnessed by the patient's daughter (at bedside). The daughter notes that the patient suffered a similar episode many years ago and it was labeled as a "stroke". She also notes that the patient has had progressive weakness of the left leg which has been diagnosed as "neuropathy". At baseline, the patient needs help with ambulation (personal assistance), bathing, and most of her ADLs. Patient notes a slight weight loss. Currently, she is at her baseline except she feels anxious, being in the ED. Past History Past Medical History: diabetes, hypertension, other (Asthma, "Stroke") Past Surgical History: No surgical history Social history: no significant social history Family history: no significant family history Medications and Allergies Allergies Allergy/AdvReac Type Severity Reaction Status Date / Time No Known Allergies Allergy Unverified 05/20/22 19:47 Active Meds: Active Medications Acetaminophen (Acetaminophen 325 Mg Tab) 650 mg PO Q4H PRN PRN Reason: Pain, Mild (1-3) Aspirin (Aspirin 325 Mg Tab) 325 mg PO QDAY [facility] Last Admin: 05/21/22 12:02 Dose: 325 mg Atorvastatin Calcium (Atorvastatin 40 Mg Tab) 40 mg PO QHS [facility] Bisacodyl (Bisacodyl 10 Mg Rect Supp) 10 mg OH QDAY PRN PRN Reason: Constipation Dextrose (Dextrose 50% In Water (25gm) 50 Ml Syringe) 0 ml IV Q30MIN PRN; Protocol PRN Reason: Hypoglycemia Gabapentin (Gabapentin 300 Mg Cap) 600 mg PO TID [facility] Insulin Human Lispro (Insulin Lispro 100 Unit/Ml) 0 unit SUB-Q ACHS [facility]; Protocol Last Admin: 05/21/22 12:02 Dose: 2 unit Magnesium Hydroxide (Magnesium Hydroxide (Mom) Oral Liqd Udc) 30 ml PO Q4H PRN PRN Reason: Constipation Metoclopramide HCl (Metoclopramide 10 Mg Tab) 10 mg PO Q6H PRN PRN Reason: Nausea And Vomiting Morphine Sulfate (Morphine 2 Mg/1 Ml Inj) 2 mg IV Q4H PRN PRN Reason: Pain, Moderate (4-6) Morphine Sulfate (Morphine 4 Mg/1 Ml Inj) 4 mg IV Q4H PRN PRN Reason: Pain , Severe (7-10) Morphine Sulfate (Morphine 2 Mg/1 Ml Inj) 2 mg IV Q4H PRN PRN Reason: Pain, Moderate (4-6) Ondansetron HCl (Ondansetron 4 Mg/2 Ml Inj) 4 mg IV Q8H PRN PRN Reason: Nausea And Vomiting Promethazine HCl (Promethazine 25 Mg Rect Supp) 25 mg [place] Q6H PRN PRN Reason: Nausea And Vomiting Sodium Chloride (Sodium Chloride 0.9% 10 Ml Flush Syringe) 10 ml IV BID MANFRED Last Admin: 05/21/22 12:03 Dose: 10 ml Sodium Chloride (Sodium Chloride 0.9% 10 Ml Flush Syringe) 10 ml IV PRN PRN PRN Reason: LINE FLUSH Review of Systems All systems: negative (as per hpi;) Physical Examination - Vital Signs Vital Signs: Vital Signs Temp Pulse Resp BP 98.8 F 92 H 100 H 158/70 05/20/22 19:40 05/20/22 19:40 05/20/22 19:40 05/20/22 19:40 - Physical Exam Narrative exam: 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; mild ataxia left arm; right leg drift; left leg cannot lift up off bed; Gen: nad, well-nourished; Head: normocephalic; Eyes: no gaze deviation; no ptosis; ENT: normal vocalization; CVS: warm and well-perfused; Pulm: no respiratory distress; GI: appears non-distended; Ext: no cyanosis appreciated at distal extremities; Skin: no acute rash at distal extremities; Heme: no pathologic ecchymosis appreciated at distal extremities; Neuro: alert, oriented to name, age, not month, not year, no dysarthria, no aphasia, CN 2 - PERRL, visual hernandez grossly intact, CN 3, 4, 6 - EOMI, CN 5 - facial sensation symmetric to light touch, CN 7 - facial movement symmetric, CN 8 - hearing grossly intact, CN 9, 10 - uvula midline, CN 11 symmetric shoulder movement, CN 12 - tongue midline; Motor - at least 4/5 at proximal BUEs and at least 3/5 w/ bilatearl handgrip; at least 4-/5 at RLE; at least 2/5 at LLE; Sensory - light touch symmetric, Cerebellar - fnf /hts intact on right with difficulty with left hts on the left, Gait - deferred secondary to fall risk; NIHSS (1a.) Level of Consciousness: 0 (1b.) LOC Questions: 1 (1c.) LOC Commands:0 (2.) Best Gaze:0 (3.) Visual:0 (4.) Facial Palsy:0 (5a.) Motor Arm, Left:0 (5b.) Motor Arm, Right:0 (6a.) Motor Leg, Left:2 (6b.) Motor Leg, Right:1 (7.) Limb Ataxia:0 (8.) Sensory:0 (9.) Best Language:0 (10.) Dysarthria:0 (11.) Extinction and Inattention:0 NIHSS Total Score: 4 Results - Laboratory Findings CBC and BMP: 05/21/22 04:19 05/21/22 04:19 Abnormal Lab Findings: Abnormal Labs 05/20/22 05/20/22 05/20/22 19:02 19:02 19:02 WBC 18.9 H MCHC RDW 12.2 L Lymph % (Auto) 8.7 L Allen % (Auto) 8.1 H Allen # (Auto) 1.5 H Seg Neutrophils % 82.5 H Seg Neutrophils # 15.6 H Potassium Chloride 97.0 L Glucose 307 H Total Creatine Kinase 237 H 241 H CK-MB (CK-2) 18.3 H CK-MB (CK-2) Rel Index 7.7 H Troponin T 0.097 H Albumin 3.6 L 05/21/22 05/21/22 04:19 04:19 WBC 15.8 H MCHC 35 H RDW 12.1 L Lymph % (Auto) Allen % (Auto) 10.3 H Allen # (Auto) 1.6 H Seg Neutrophils % Seg Neutrophils # 10.3 H Potassium 3.2 L Chloride Glucose 171 H Total Creatine Kinase CK-MB (CK-2) CK-MB (CK-2) Rel Index Troponin T Albumin Assessment and Plan 62 yo right-handed, female with htn, dm, asthma, hx of "stroke", who presents with an episode of possible syncope and/or seizure and/or TIA. 1. Syncope - cta head/neck pending; if unremarkable, non-neurogenic workup per primary team. 2. TIA - aspirin 81 mg po qday; plavix 75 mg po qday x21 days; statin therapy for a goal ldl of 70; mri brain wo contrast unremarkable; ordered cta head/neck w/ wo contrast; cus negative; echo unremarkable; monitor clinically; 3. Seizure - EEG results pending; ordered mri brain w/ contrast. 4. Left Leg Weakness - pt/ot evaluation/monitoring; mri spine w/o contrast ordered; if negative pt will need outpatient [id number] in 2-4 weeks. 5. Hypertension - aim for normotension. 6. DM - maintain euglycemia. Bebeto Hernandes MD Neurology [id number]
[2022-05-21] MEDS: GABAPENTIN 300 MG CAP PO SCH ×2 (16:45→20:00)
[2022-05-21 17:32] LABS: Chol/HDL Ratio 3.53 %
[2022-05-21] MEDS ORDERED: INSULIN GLARGINE 100 UNITS/ML SUB-Q SCH (22:00)
--- NOTE | 2022-05-22 10:03 | Magnetic Resonance Report ---
MRI LUMBAR SPINE WITHOUT CONTRAST INDICATION / CLINICAL INFORMATION: stenosis; left leg weakness;. TECHNIQUE: Multisequence, multiplanar images of the lumbar spine were obtained. COMPARISON: None available. FINDINGS: ALIGNMENT: Normal lumbar lordosis without significant scoliosis. VERTEBRAE:Normal marrow signal and vertebral body height for age. 1.4 cm vertebral body bone hemangio ma is noted in L1. VISUALIZED SPINAL CORD: No significant abnormality. The conus terminates at the level of L2 mid body. [id number] ANALYSIS: L1-2: No significant abnormality with the disc. Mild facet arthropathy. L2-3: No significant abnormality with the disc. Mild facet arthropathy. L3-4: No significant abnormality with the disc. Mild facet arthropathy and mild hypertrophy of the li gamentum flavum. L4-5: Moderate disc desiccation. Moderate diffuse posterior bulging disc. Moderate to severe facet ar thropathy with hypertrophic changes. Severe hypertrophy ligamentum flavum. There is widening of both SI joints with posterior septated synovial cysts measuring 1.2 cm on the right and 1.4 cm on the left . There is severe central canal stenosis. There is moderate to severe right neural foraminal narrowin g and severe left neural foraminal narrowing. L5-S1: Mild disc desiccation. No significant bulging disc. Moderate facet arthropathy with hypertroph ic changes. Moderate thickening of ligamentum flavum. No significant central canal stenosis. There is mild left neural foraminal narrowing. PARASPINAL SOFT TISSUES: No significant abnormality. ADDITIONAL FINDINGS: None. IMPRESSION: There are advanced degenerative changes at L4-5 with severe central canal stenosis and bilateral rubin ral foraminal narrowing as described. Mild degenerative changes at the remaining levels as described. L1 vertebral body hemangioma. Signer Name: Maciej Laura Jr, MD Signed: 05/22/2022 9:59 AM Workstation Name: [id number]
--- NOTE | 2022-05-22 10:07 | Cat Scan Report ---
CTA NECK WITH CONTRAST HISTORY: Vertebral basilar insufficiency COMPARISON: None. TECHNIQUE: Routine CTA of the neck was performed. 3-D/MIP reformats were postprocessed. Percentage s tenosis is determined by direct quantitative measurements of diseased internal carotid artery diamete r compared with normal distal internal carotid artery reference segments or by criteria similar to NA SCET where applicable.All CT scans at this location are performed using CT dose reduction for ALARA b y means of automated exposure control CONTRAST: 100 ml of Omnipaque 350 FINDINGS: Aortic arch: No significant abnormality. Cervical vertebral arteries: No significant abnormality. Common carotid arteries: No significant abnormality. Carotid bifurcations: Normal Cervical internal carotid arteries: No significant abnormality. Tortuosity bilaterally Additional findings: None. IMPRESSION: 1. No significant abnormality. CTA HEAD WITH CONTRAST TECHNIQUE: Routine non-contrast CT Head, CTA of the head and post-contrast CT Head are performed. 3-D /MIP reformats postprocessed. All CT scans at this location are performed using CT dose reduction for ALARA by means of automated exposure control FINDINGS: CTA Head: Intracranial vertebral arteries: No significant abnormality. Basilar artery: No significant abnormality. Posterior cerebral arteries: No significant abnormality. Intracranial internal carotid arteries: No significant abnormality. Anterior cerebral arteries: No significant abnormality. Middle cerebral arteries: No significant abnormality. Dural venous sinuses:Not optimally opacified. No significant abnormality. Additional findings: None. IMPRESSION: 1. No significant abnormality. Signer Name: Guilherme Sol MD Signed: 05/22/2022 10:02 AM Workstation Name: [id number]
--- NOTE | 2022-05-22 10:36 | Magnetic Resonance Report ---
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 TECHNIQUE: Multisequence, multiplanar images of the cervical spine were obtained. Some of the imaging sequences susceptibility repeated; transverse gradient echo images marred by motion related artifacts COMPARISON: None available. FINDINGS: CRANIOCERVICAL JUNCTION:No significant abnormality. ALIGNMENT: No significant abnormality. VERTEBRAE:Normal marrow signal and vertebral body height for age. VISUALIZED SPINAL CORD: Abnormal cord signal intensity at C3-C4 disc level [id number] ANALYSIS: C2-3: No significant disc abnormality, spinal canal stenosis, or neural foraminal stenosis. C3-4: Disc height loss with type II endplate degenerative changes; uncovertebral joint hypertrophy mo re on the left side; large soft disc herniation extending bilaterally more towards the right side dis placing the dural sac and the spinal cord; signal intensity changes within the cervical spinal cord a t this level due to ischemia or spongiosis; neuroforamina normal C4-5: Grade 1 anterolisthesis; disc profile normal; neuroforamina are normal C5-6: Disc height loss with type II endplate degenerative changes; asymmetric disc bulge more towards the right side; neuroforamina are normal C6-7: Shallow right subarticular zone disc protrusion; neuroforamina are normal C7-T1: No significant disc abnormality, spinal canal stenosis, or neural foraminal stenosis. PARASPINAL SOFT TISSUES: No significant abnormality. ADDITIONAL FINDINGS: None. IMPRESSION: C3-C4: Disc herniation extending bilaterally more towards the right side displacing the dural sac and spinal cord; signal intensity changes in the spinal cord due to ischemia or spongiosis C5-C6: Asymmetric disc bulge towards right side; neuroforamina are normal C6-C7: Shallow right subarticular zone disc protrusion; normal neuroforamina Signer Name: Guilherme Sol MD Signed: 05/22/2022 10:32 AM Workstation Name: [id number]
[2022-05-22 10:48] VITALS: BP 154/79
[2022-05-22] MEDS: INSULIN LISPRO 100 UNIT/ML SUB-Q SCH ×2 (10:51→12:49)
[2022-05-22] MEDS: GABAPENTIN 300 MG CAP PO SCH (11:05)
[2022-05-22] MEDS: ASPIRIN 325 MG TAB PO SCH (11:05)
--- NOTE | 2022-05-22 11:47 | Magnetic Resonance Report ---
MRI BRAIN WITH CONTRAST INDICATION / CLINICAL INFORMATION: Metastasis, WEAKNESS PATIENT MOTION, BEST POSSIBLE EXAM. TECHNIQUE: Multisequence, multiplanar images were obtained. COMPARISON: MR brain without contrast 04/21/2022. FINDINGS: CEREBRAL and CEREBELLAR HEMISPHERES: No evidence for enhancing mass or metastatic disease. No midlin e shift. No acute hemorrhage. No extra-axial fluid collection. Mild cortical atrophy is again noted which appears appropriate for this person's age. VENTRICLES: Normal in size and configuration for age. VISUALIZED ORBITS: No significant abnormality. VISUALIZED PARANASAL SINUSES: Mild chronic appearing sinusitis is again noted and unchanged. ADDITIONAL FINDINGS: None. IMPRESSION: Unremarkable MRI brain with contrast. No evidence for abnormal enhancement or metastatic disease. Mild chronic pansinusitis. Signer Name: Maciej Laura Jr, MD Signed: 05/22/2022 11:43 AM Workstation Name: [id number]
--- NOTE | 2022-05-22 13:25 | Discharge Summary ---
Providers - Providers Date of Admission: 05/20/22 22:20 Date of discharge: 05/22/22 Attending physician: ABDIEL DAVILA MD 05/20/22 22:19 Consult to Physician [CONS] Routine Comment: Consulting Provider: АЛЕКСАНДР SEARS Physician Instructions: Reason For Exam: TIA 05/20/22 22:20 Consult to Dietitian/Nutrition [CONS] Routine Physician Instructions: Reason For Exam: Reason for Consult: Nutrition Recommendations Reason for Consult: Diet education Occupational Therapy Evaluate and Treat [CONS] Routine Comment: Reason For Exam: Neuro deficits Physical Therapy Evaluation and Treat [CONS] Routine Comment: Reason For Exam: Neuro deficits 05/20/22 22:22 Speech Therapy Evaluation and Treat [CONS] Routine Reason For Exam: swallow eval Primary care physician: MIRI MARKHAM Hospitalization Reason for admission: TIA, syncope Condition: Good Pertinent studies: Reviewed. Procedures: None. Hospital course: Patient is a 62-year-old -[place] female with known history of diabetes mellitus, hypertension and asthma presenting to the emergency room today after having a syncopal episode while in the restroom at home. Patient states she felt dizzy and lightheaded while she was in the bathroom. She subsequently lost consciousness EMS was called. She denied any headache, chest pain or shortness of breath, no nausea or vomiting prior to this episode. Patient has denied any history of seizure disorder. According to EMS, the patient was said to be confused, had a facial droop and slurred speech initially. Symptoms resolved upon arrival in the emergency room. Patient had labs are remarkable for WBC 18.9, troponin 0.097, blood glucose 307. Patient underwent multiple imaging: CT head noncontrast, femur x-ray, pelvic x-ray, chest x-ray, carotid Dopplers, MRI brain, CT angio head and neck, cervical and lumbar spine MRI that were all found to be unremarkable. Neurology was consulted. Physical therapy recommended subacute rehab; however, patient is self-pay and could not move forward with subacute rehab. Instead the patient will be going home with home PT. The patient will be discharging with aspirin 81 mg daily (lifelong) and Plavix 75 mg daily x21 days. Patient will follow-up with neurology in outpatient setting. Patient is medically clear for discharge. Disposition: 01 HOME / SELF CARE / HOMELESS Final Discharge Diagnosis (Prints w/discharge instructions): TIA, syncope, insulin-dependent type 2 diabetes mellitus with hyperglycemia complicated by peripheral neuropathy, leukocytosis elevated troponin, volume depletion, history of asthma, morbid obesity Time spent for discharge: 45 min Core Measure Documentation - Palliative Care Palliative Care/ Comfort Measures: Not Applicable - Core Measures Any of the following diagnoses?: none Exam - Constitutional Vitals: Temp Pulse Resp BP Pulse Ox 98.1 F 71 18 154/79 100 05/22/22 10:33 05/22/22 10:33 05/22/22 10:33 05/22/22 10:33 05/22/22 10:33 General appearance: Present: no acute distress, well-nourished, obese - EENT Eyes: Present: PERRL, EOM intact ENT: hearing intact, clear oral mucosa, dentition normal - Neck Neck: Present: supple, normal ROM - Respiratory Respiratory effort: normal Respiratory: bilateral: CTA - Cardiovascular Rhythm: regular Heart Sounds: Present: S1 & S2 - Extremities Extremities: no ischemia, pulses intact, pulses symmetrical, No edema, normal temperature, normal color, Full ROM Extremity abnormal: tenderness (Right hip tenderness) Peripheral Pulses: within normal limits - Abdominal General gastrointestinal: Present: soft, non-tender, non-distended, normal bowel sounds Female genitourinary: Present: deferred - Rectal Rectal Exam: deferred - Integumentary Integumentary: Present: clear, warm, dry - Musculoskeletal Musculoskeletal: generalized weakness - Psychiatric Psychiatric: appropriate mood/affect, intact judgment & insight, memory intact, cooperative - Neurologic Neurologic: CNII-XII intact, moves all extremities - Allied Health Allied health notes reviewed: nursing Plan Activity: advance as tolerated Diet: low salt, diabetic Additional Instructions: Patient is a 62-year-old -[place] female with known history of diabetes mellitus, hypertension and asthma presenting to the emergency room today after having a syncopal episode while in the restroom at home. Patient states she felt dizzy and lightheaded while she was in the bathroom. She subsequently lost consciousness EMS was called. She denied any headache, chest pain or shortness of breath, no nausea or vomiting prior to this episode. Patient has denied any history of seizure disorder. According to EMS, the patient was said to be confused, had a facial droop and slurred speech initially. Symptoms resolved upon arrival in the emergency room. Patient had labs are remarkable for WBC 18.9, troponin 0.097, blood glucose 307. Patient underwent multiple imaging: CT head noncontrast, femur x-ray, pelvic x-ray, chest x-ray, carotid Dopplers, MRI brain, CT angio head and neck, cervical and lumbar spine MRI that were all found to be unremarkable. Neurology was consulted. Physical therapy recommended subacute rehab; however, patient is self-pay and could not move forward with subacute rehab. Instead the patient will be going home with home PT. The patient will be discharging with aspirin 81 mg daily (lifelong) and Plavix 75 mg daily x21 days. Patient will follow-up with neurology in outpatient setting. Patient is medically clear for discharge. Care Plan Goals: Patient is medically clear for discharge. Assessment: Patient is a 62-year-old -[place] female with known history of diabetes mellitus, hypertension and asthma presenting to the emergency room today after having a syncopal episode while in the restroom at home. Patient states she felt dizzy and lightheaded while she was in the bathroom. She subsequently lost consciousness EMS was called. She denied any headache, chest pain or shortness of breath, no nausea or vomiting prior to this episode. Patient has denied any history of seizure disorder. According to EMS, the patient was said to be confused, had a facial droop and slurred speech initially. Symptoms resolved upon arrival in the emergency room. Patient had labs are remarkable for WBC 18.9, troponin 0.097, blood glucose 307. Patient underwent multiple imaging: CT head noncontrast, femur x-ray, pelvic x-ray, chest x-ray, carotid Dopplers, MRI brain, CT angio head and neck, cervical and lumbar spine MRI that were all found to be unremarkable. Neurology was consulted. Physical therapy recommended subacute rehab; however, patient is self-pay and could not move forward with subacute rehab. Instead the patient will be going home with home PT. The patient will be discharging with aspirin 81 mg daily (lifelong) and Plavix 75 mg daily x21 days. Patient will follow-up with neurology in outpatient setting. Patient is medically clear for discharge. Follow up with: MIRI MARKHAM MD [Primary Care Provider] - 7 Days АЛЕКСАНДР SEARS MD [Staff Physician] - 14 Days Prescriptions: Insulin Glargine [Lantus VIAL] 5 units SUB-Q QHS #1 vial Aspirin 81 mg PO QDAY #30 tablet Gabapentin 600 mg PO BID #120 capsule
[2022-05-22] MEDS ORDERED: POTASSIUM CHLORIDE ER 20 MEQ TAB PO NR (13:27)
[2022-05-22 15:08] LABS: Hematocrit 35.7 % (30.3-42.9); Hemoglobin 11.8 gm/dl (10.1-14.3); Mean Corpuscular HGB Conc 33 % (30-34); Mean Corpuscular Volume 90 fl (79-97); Platelet Count 294 K/mm3 (140-440); Red Blood Count 3.96 M/mm3 (3.65-5.03); Red Cell Distribution Width 12.1 % (13.2-15.2)
[2022-05-22 15:31] LABS: BUN/Creatinine Ratio 20; Blood Urea Nitrogen 16 mg/dL (7-17); Hemolysis Index 3
--- NOTE | 2022-05-24 11:56 | Electrocardiograph Report ---
[facility] Test Date: 2022-05-20 Test Time: 19:48:25 Pat Name: SHERIF JORDAN Department: Room: A473 Gender: F Collet Gluer: JASON : 1960 Requested By: KIMBERLEY GARCIA Order Number: [id number] Reading MD: Teena Castano Measurements Intervals [place] Rate: 77 P: 62 [place]: 148 QRS: 9 QRSD: 93 T: 34 QT: 386 QTc: 436 Interpretive Statements Sinus rhythm Probable left atrial enlargement No previous ECG available for comparison Electronically Signed On 05-24-2022 11:56:31 EDT by Teena Castano
== END 2022-05-22 16:30 | disposition home health service (06) | DRG 69 ==
LOC: ED 18:48 → 4A 22:20
PROVIDERS: ADMIT Internal Medicine Geriatric Medicine; ATTEND Student in an Organized Health Care Education/Training Program
DX: G45.9 Transient cerebral ischemic attack, unspecified (principal); Z68.41 Body mass index [BMI] 40.0-44.9, adult; E11.65 Type 2 diabetes mellitus with hyperglycemia; E11.42 Type 2 diabetes mellitus with diabetic polyneuropathy; J45.909 Unspecified asthma, uncomplicated; D72.829 Elevated white blood cell count, unspecified; E86.9 Volume depletion, unspecified; R56.9 Unspecified convulsions; E66.01 Morbid (severe) obesity due to excess calories
CPT/HCPCS: 36415; 70450; 70496; 70498; 70551; 70552; 71045; 72141; 72148; 72170; 80048; 80053; 80061; 80320; 81001; 82306; 82550; 82553; 82607; 82747; 82962; 83036; 83735; 84134; 84425; 84443; 84484; 85025; 85027; 85610; 86592; 93005; 93306; 93880; 99406; G0378; Q9967; A9575; C8929; G0480; J1815; J2270; J7030

== ENCOUNTER 2022-07-07 19:20 | Inpatient (IN) | payer SELFPAY ==
--- NOTE | 2022-07-07 19:41 | Emergency Department Report ---
ED General Adult HPI - General Stated complaint: AMS/HYPERTENSION Time Seen by Provider: 07/07/22 19:26 Source: EMS - History of Present Illness Initial comments: 62-year-old female with medical history of dementia, asthma, hypertension, diabetes and also patient had a TIA about a month ago brought in by EMS with concerns of altered mental status which according to EMS from the family at that patient was confused when she had a stroke last time. At the time my evaluation patient; patient just came in from the ambulance bay and on my initial examination patient appears AO x1 does not know what year where she is. Patient has no lateralization and no focal neurologic deficit. NIH scale is 0 - Related Data Previous Rx's Medication Instructions Recorded Last Taken Type Aspirin 81 mg PO QDAY #30 tablet 05/22/22 Unknown Rx Clopidogrel [Plavix] 75 mg PO QDAY #21 tablet 05/22/22 Unknown Rx Gabapentin 600 mg PO BID #120 capsule 05/22/22 Unknown Rx Insulin Glargine [Lantus VIAL] 5 units SUB-Q QHS #1 vial 05/22/22 Unknown Rx Allergies Allergy/AdvReac Type Severity Reaction Status Date / Time No Known Allergies Allergy Unverified 05/20/22 19:47 ED Review of Systems ROS: Stated complaint: AMS/HYPERTENSION Other details as noted in HPI Comment: All other systems reviewed and negative Constitutional: no symptoms reported, see HPI Eyes: as per HPI ENT: as per HPI Respiratory: no symptoms reported, see HPI Cardiovascular: as per HPI Endocrine: no symptoms reported, see HPI Gastrointestinal: as per HPI Genitourinary: as per HPI Musculoskeletal: as per HPI Skin: as per HPI Neurological: as per HPI Psychiatric: as per HPI Hematological/Lymphatic: as per HPI ED Past Medical Hx - Past Medical History Previous Medical History?: Yes Hx Congestive Heart Failure: No Hx Diabetes: Yes Hx Asthma: Yes Hx COPD: No - Social History Smoking Status: Current Every Day Smoker - Medications Home Medications: Home Medications Medication Instructions Recorded Confirmed Last Taken Type Aspirin 81 mg PO QDAY #30 tablet 05/22/22 Unknown Rx Clopidogrel [Plavix] 75 mg PO QDAY #21 tablet 05/22/22 Unknown Rx Gabapentin 600 mg PO BID #120 capsule 05/22/22 Unknown Rx Insulin Glargine [Lantus VIAL] 5 units SUB-Q QHS #1 vial 05/22/22 Unknown Rx ED Physical Exam - General Limitations: Altered Mental Status General appearance: alert, in no apparent distress - Head Head exam: Present: atraumatic, normocephalic, normal inspection - Eye Eye exam: Present: normal appearance, PERRL, EOMI Pupils: Present: normal accommodation - ENT ENT exam: Present: normal exam, mucous membranes moist - Neck Neck exam: Present: normal inspection, full ROM - Respiratory Respiratory exam: Present: normal lung sounds bilaterally - Cardiovascular Cardiovascular Exam: Present: regular rate, normal rhythm, normal heart sounds - GI/Abdominal GI/Abdominal exam: Present: soft - Extremities Exam Extremities exam: Present: normal inspection, full ROM, normal capillary refill - Back Exam Back exam: Present: normal inspection, full ROM - Neurological Exam Neurological exam: Present: alert, altered, CN II-XII intact, other (AOX1) - Psychiatric Psychiatric exam: Present: normal affect, normal mood - Skin Skin exam: Present: normal color ED Course Vital Signs 07/07/22 19:21 Temperature 98 F Pulse Rate 88 Respiratory 20 Rate Blood Pressure 116/58 O2 Sat by Pulse 100 Oximetry ED Medical Decision Making - Lab Data Result diagrams: 07/07/22 20:25 07/07/22 20:25 - EKG Data -: EKG Interpreted by Me EKG shows normal: sinus rhythm Rate: normal - EKG Data When compared to previous EKG there are: no significant change Interpretation: normal EKG 07/07/22 22:38 EKG AT 2114: SINUS OR ECTOPIC ATRIAL RHYTHM AT 83 BPM; NO ST ELEVATION OR DEPRESSION. NO WELLEN WAVES. SPOKE TO DR. KRAMER WHO KINDLY ACCEPTED THE PATIENT. Critical care attestation.: If time is entered above; I have spent that time in minutes in the direct care of this critically ill patient, excluding procedure time. ED Disposition Clinical Impression: Metabolic encephalopathy, JULITA (acute kidney injury), Elevated troponin I level, Confusion Disposition: ADMITTED INPATIENT Is pt being admited?: Yes Does the pt Need Aspirin: No Condition: Stable Time of Disposition: 22:39
--- NOTE | 2022-07-07 20:04 | Emergency Department Report ---
Blank Doc - Documentation Documentation: [facility] Consult Note # Demographics Consult Type: Acute Stroke Level 1 (0-4.5 hrs) Patient Location: Emergency Room First Name: Sherrill Last Name: [place] Date of : 1960 Age: 62 Gender: Female Facility: [facility] Time of Initial Page (Eastern Time): 07/07/2022, 19:12 Time of Return Call (Eastern Time): 07/07/2022, 19:12 # HPI History: 62 year old female HTN, Dementia, DM TIA about 1 month presents with AMS. She presents with not being fully oriented. Patient is not able to tell me much, no family at bedside. Patient states she didnt feel good thats why she came to the hospital # Scores Level of Consciousness 1a: [0] = Alert; keenly responsive LOC Questions 1b: [1] = Answers one correctly LOC Commands 1c: [0] = Performs both tasks correctly Best Gaze 2: [0] = Normal Visual 3: [0] = No visual loss Facial Palsy 4: [0] = Normal symmetrical movements Motor Arm Left 5a: [0] = No drift Motor Arm Right 5b: [0] = No drift Motor Leg Left 6a: [2] = Some effort against gravity Motor Leg Right 6b: [2] = Some effort against gravity Limb Ataxia 7: [0] = Absent Sensory 8: [0] = Normal Best Language 9: [1] = [id number] aphasia Dysarthria 10: [0] = Normal Extinction and Inattention 11: [0] = No abnormality NIHSS Total: 6 # PMH-FH-SH Past Medical History: dementia Diabetes hypertension TIA Social History: non-smoker non-drinker no drugs lives with family Medications: unclear # Data Head CT: no bleed preliminarily reviewed by me, please refer to radiology read for official reading # Assessment Impression: 62 year old with hx of dementia, TIA, HTN, DM presents with AMS. No focal f indings on exam. Unclear baseline but reported dementia. out of window for tpa (LKW : noon). Likely toxic/metabolic/infectious, less likely to be stroke. # Plan Thrombolytic/Intervention: Possible IA candidate Thrombolytic Exclusion: > 4.5 hours Possible IA Candidate: CTA pending Intraarterial Exclusion: cta pending Blood Pressure Management: IV fluid bolus Target Blood Pressure: SBP < 220 SBP > 120 DBP < 105 Labs: CBC comprehensive metabolic panel hemoglobin A1c lipid panel troponin TSH ua Imaging: (urgency: STAT): CT Head without contrast CT Angiogram Head and CT Angiogram Neck Imaging: (urgency: routine): MRI Brain without contrast Diagnostic Test: echo with bubble study Medication: aspirin 81 mg PLUS clopidogrel (Plavix) 75 mg for 21 days, then monotherapy therafter start statin with goal of LDL < 70 Other: If patient has any neurological deterioration please call me back immediately permissive hypertension telemetry monitoring would not pursue stroke work-up if MRI is negative I have discussed my recommendations with the referring provider Permissive HTN for 24 hours Disposition: admit # Demographics First Name: Sherrill Last Name: [place] Facility: [facility]
--- NOTE | 2022-07-07 20:08 | Cat Scan Report ---
CT HEAD WITHOUT CONTRAST INDICATION / CLINICAL INFORMATION: STROKE. TECHNIQUE: All CT scans at this location are performed using CT dose reduction for ALARA by means of automated e xposure control. COMPARISON: MRI brain 04/21/[address] 05/20/2022 FINDINGS: HEMORRHAGE: No evidence of intracranial hemorrhage or extra-axial fluid collection. EXTRA-AXIAL SPACES: Cortical sulci and sylvian fissures are within normal limits for the patient's ag e of 62 years.. Basilar cisterns have an unremarkable appearance. VENTRICULAR SYSTEM: The third and lateral ventricles are enlarged out of proportion to the cortical s ulci. This probably reflects the presence of central greater than cortical atrophy. Similar findings were present on previous study. CEREBRAL PARENCHYMA: Subtle periventricular and deep white matter lucency is observed. This is probab ly secondary to mild microvascular ischemic change. There is no indication of recent infarction. No a reas of encephalomalacia are identified. MIDLINE SHIFT OR HERNIATION: There is no mass effect. CEREBELLUM / BRAINSTEM: Brainstem and cerebellum have an unremarkable appearance. MIDLINE STRUCTURES:No abnormalities of the pituitary gland or pineal region are observed INTRACRANIAL VESSELS: No significant abnormality on this noncontrast head CT. CRANIOCERVICAL JUNCTION:No abnormality ORBITS: visualized portions of the orbits have an unremarkable appearance. SOFT TISSUES of HEAD: No significant abnormality. CALVARIUM: Evaluation of bone windows reveals no abnormalities. PARANASAL SINUSES / MASTOID AIR CELLS: Paranasal sinuses are free from inflammatory mucosal disease. Mastoid air cells are normally pneumatized. IMPRESSION: 1. Central greater than cortical parenchymal volume loss. 2. No acute intracranial abnormality. No significant interval change compared to recent study dated . Signer Name: Rolando Zavaleta MD Signed: 07/07/2022 8:05 PM Workstation Name: [id number]
[2022-07-07] MEDS ORDERED: SODIUM CHLORIDE 0.9% 1000 ML 2,000 ML IV ONE (20:38)
[2022-07-07 20:54] LABS: Hemoglobin 12.7 gm/dl (10.1-14.3); Mean Corpuscular HGB Conc 34 % (30-34); Mean Corpuscular Volume 90 fl (79-97); Red Blood Count 4.13 M/mm3 (3.65-5.03); Red Cell Distribution Width 13.1 % (13.2-15.2)
[2022-07-07 20:58] LABS: Platelet Count 228 K/mm3 (140-440)
[2022-07-07 21:01] LABS: INR 1.23 (0.87-1.13)
[2022-07-07 21:21] LABS: Chol/HDL Ratio 3.6 %
--- NOTE | 2022-07-07 22:39 | XRay Report ---
. XR chest 1V ap INDICATION / CLINICAL INFORMATION: STROKE. COMPARISON: 05/20/2022 FINDINGS: SUPPORT DEVICES: None. HEART /PULMONARY VASCULATURE: No significant abnormality. LUNGS / PLEURA: No acute pulmonary or pleural abnormality. No pneumothorax. ADDITIONAL FINDINGS: No significant additional findings. IMPRESSION: 1. No acute findings. Signer Name: Jonnie Amaro MD Signed: 07/07/2022 10:35 PM Workstation Name: [id number]
[2022-07-07] MEDS ORDERED: ONDANSETRON 4 MG/2 ML INJ IV PRN (22:50)
[2022-07-07] MEDS ORDERED: ACETAMINOPHEN 325 MG TAB PO PRN (22:50)
[2022-07-07] MEDS ORDERED: ALBUTEROL 2.5 MG/3 ML NEBU IH PRN (22:50)
[2022-07-07] MEDS ORDERED: MORPHINE 4 MG/1 ML INJ IV PRN (22:50)
[2022-07-07] MEDS ORDERED: MORPHINE 2 MG/1 ML INJ IV PRN (22:50)
[2022-07-07] MEDS ORDERED: SODIUM CHLORIDE 0.45% 1000 ML 1,000 ML IV SCH (23:00)
--- NOTE | 2022-07-07 23:02 | History and Physical Report ---
History of Present Illness Date of examination: 07/07/22 Date of admission: 07/07/22 Chief complaint: Altered mental status Confusion Hypertension History of present illness: 62-year-old female with medical history of dementia, asthma, hypertension, diabetes and also patient had a TIA about a month ago brought in by EMS with concerns of altered mental status which according to EMS from the family at that patient was confused when she had a stroke last time. At the time my evaluation patient; patient just came in from the ambulance bay and on my initial examina tion patient appears AO x1 does not know what year where she is. Patient has no lateralization and no focal neurologic deficit. NIH scale is [address] scan of the head showed central greater than cortical parenchymal volume loss. No acute intracranial abnormality. Also patient has BUN of 84 creatinine 2.2, troponin of 0.067. Subsequently patient was seen and evaluated by telemetry neurology. we were going to admit the patient, we will put the patient on CVA pathway, do MRI of the brain and consult neurology for evaluation. Past History Past Medical History: diabetes, hypertension, other (Asthma) Past Surgical History: No surgical history Social history: smoking Family history: hypertension Medications and Allergies Allergies Allergy/AdvReac Type Severity Reaction Status Date / Time No Known Allergies Allergy Unverified 05/20/22 19:47 Home Medications Medication Instructions Recorded Confirmed Last Taken Type Aspirin 81 mg PO QDAY #30 tablet 05/22/22 Unknown Rx Clopidogrel [Plavix] 75 mg PO QDAY #21 tablet 05/22/22 Unknown Rx Gabapentin 600 mg PO BID #120 capsule 05/22/22 Unknown Rx Insulin Glargine [Lantus VIAL] 5 units SUB-Q QHS #1 vial 05/22/22 Unknown Rx Active Meds: Active Medications Acetaminophen (Acetaminophen 325 Mg Tab) 650 mg PO Q4H PRN PRN Reason: Pain MILD(1-3)/Fever >100.5/BOSE Albuterol (Albuterol 2.5 Mg/3 Ml Nebu) 2.5 mg IH Q3HRT PRN PRN Reason: Shortness Of Breath Albuterol/Ipratropium (Ipratropium/Albuterol Sulfate 3 Ml Ampul.Neb) 1 ampul IH Q6HRT MANFRED Aspirin (Aspirin 325 Mg Tab) 325 mg PO QDAY MANFRED Atorvastatin Calcium (Atorvastatin 40 Mg Tab) 40 mg PO QHS MANFRED Famotidine (Famotidine 20 Mg/2 Ml Inj) 20 mg IV BID [facility] Heparin Sodium (Porcine) (Heparin 5,000 Unit/1 Ml Vial) 5,000 unit SUB-Q Q12HR [facility] Sodium Chloride (Nacl 0.45% 1000 Ml) 1,000 mls @ 100 mls/hr IV DIRECT MANFRED Labetalol HCl (Labetalol 20 Mg/4 Ml Inj) 10 mg IV Q5MIN PRN PRN Reason: to maintain SBP < 180 Morphine Sulfate (Morphine 2 Mg/1 Ml Inj) 2 mg IV Q4H PRN PRN Reason: Pain, Moderate (4-6) Morphine Sulfate (Morphine 4 Mg/1 Ml Inj) 4 mg IV Q4H PRN PRN Reason: Pain , Severe (7-10) Ondansetron HCl (Ondansetron 4 Mg/2 Ml Inj) 4 mg IV Q8H PRN PRN Reason: Nausea And Vomiting Sodium Chloride (Sodium Chloride 0.9% 10 Ml Flush Syringe) 10 ml IV BID MANFRED Sodium Chloride (Sodium Chloride 0.9% 10 Ml Flush Syringe) 10 ml IV PRN PRN PRN Reason: LINE FLUSH Sodium Chloride (Sodium Chloride 0.9% 10 Ml Flush Syringe) 10 ml INJ PRN PRN PRN Reason: LINE FLUSH Review of Systems All systems: negative Constitutional: fatigue, other (Confusion) Exam - Constitutional Vitals: Temp Pulse Resp BP Pulse Ox 98 F 88 20 116/58 100 07/07/22 19:21 07/07/22 19:21 07/07/22 19:21 07/07/22 19:21 07/07/22 19:21 General appearance: Present: no acute distress, well-nourished - EENT Eyes: Present: PERRL ENT: hearing intact, clear oral mucosa - Neck Neck: Present: supple, normal ROM - Respiratory Respiratory effort: normal Respiratory: bilateral: CTA - Cardiovascular Heart Sounds: Present: S1 & S2. Absent: rub, click - Extremities Extremities: pulses symmetrical, No edema Peripheral Pulses: within normal limits - Abdominal General gastrointestinal: Present: soft, non-tender, non-distended, normal bowel sounds Female genitourinary: Present: normal - Integumentary Integumentary: Present: clear, warm, dry - Musculoskeletal Musculoskeletal: gait normal, strength equal bilaterally - Psychiatric Psychiatric: other (Patient is confused) - Neurologic Neurologic: CNII-XII intact, moves all extremities, other (Patient is confused) HEART Score - HEART Score Troponin: Troponin T 0.067 ng/mL (0.00-0.029) H 07/07/22 20:25 Results - Labs CBC & Chem 7: 07/07/22 20:25 07/07/22 20:25 Labs: Laboratory Last Values WBC 11.8 K/mm3 (4.5-11.0) H 07/07/22 20:25 RBC 4.13 M/mm3 (3.65-5.03) 07/07/22 20:25 Hgb 12.7 gm/dl (10.1-14.3) 07/07/22 20:25 Hct 37.0 % (30.3-42.9) 07/07/22 20:25 MCV 90 fl (79-97) 07/07/22 20:25 MCH 31 pg (28-32) 07/07/22 20:25 MCHC 34 % (30-34) 07/07/22 20:25 RDW 13.1 % (13.2-15.2) L 07/07/22 20:25 Plt Count 228 K/mm3 (140-440) 07/07/22 20:25 PT 17.0 Sec. (12.2-14.9) H 07/07/22 20:25 INR 1.23 (0.87-1.13) H 07/07/22 20:25 Sodium 140 mmol/L (137-145) 07/07/22 20:25 Potassium 4.1 mmol/L (3.6-5.0) 07/07/22 20:25 Chloride 96.4 mmol/L (98-107) L 07/07/22 20:25 Carbon Dioxide 23 mmol/L (22-30) 07/07/22 20:25 Anion Gap 25 mmol/L 07/07/22 20:25 BUN 84 mg/dL (7-17) H 07/07/22 20:25 Creatinine 2.2 mg/dL (0.6-1.2) H 07/07/22 20:25 Estimated GFR 27 ml/min 07/07/22 20:25 BUN/Creatinine Ratio 38 % 07/07/22 20:25 Glucose 169 mg/dL (65-100) H 07/07/22 20:25 Calcium 10.0 mg/dL (8.4-10.2) 07/07/22 20:25 Magnesium 2.80 mg/dL (1.7-2.3) H 07/07/22 20:25 Total Bilirubin 0.60 mg/dL (0.1-1.2) 07/07/22 20:25 AST 45 units/L (5-40) H 07/07/22 20:25 ALT 21 units/L (7-56) 07/07/22 20:25 Alkaline Phosphatase 134 units/L (35-129) H 07/07/22 20:25 Troponin T 0.067 ng/mL (0.00-0.029) H 07/07/22 20:25 NT-Pro-B Natriuret Pep 44.72 pg/mL (0-900) 07/07/22 20:25 Total Protein 7.8 g/dL (6.3-8.2) 07/07/22 20:25 Albumin 4.0 g/dL (3.9-5) 07/07/22 20:25 Albumin/Globulin Ratio 1.1 % 07/07/22 20:25 Triglycerides 132 mg/dL (2-149) 07/07/22 20:25 Cholesterol 209 mg/dL (50-199) H 07/07/22 20:25 LDL Cholesterol Direct 121 mg/dL (50-130) 07/07/22 20:25 HDL Cholesterol 58 mg/dL (40-59) 07/07/22 20:25 Cholesterol/HDL Ratio 3.60 % 07/07/22 20:25 - Imaging and Cardiology Chest x-ray: report reviewed CT Scan - head: report reviewed Assessment and Plan VTE prophylaxis?: Chemical Plan of care discussed with patient/family: Yes - Patient Problems (1) Metabolic encephalopathy Status: Acute Plan to address problem: Admit the patient to the medical telemetry. Aspirin 325 mg p.o. daily. Lipitor 40 mg p.o. daily. We do the MRI of the brain and MRA of the brain and neck with and without contrast. Echocardiogram. Neurology evaluation (2) TIA (transient ischemic attack) Status: Acute Plan to address problem: Aspirin 325 mg p.o. daily. Lipitor 40 mg p.o. daily. We do the MRI of the brain and MRA of the brain and neck with and without contrast. Echocardiogram. Neurology evaluation (3) Diabetes Status: Acute Plan to address problem: Accu-Chek every 6 hours with Humalog moderate dose coverage. Diabetic education (4) JULITA (acute kidney injury) Status: Acute Plan to address problem: Avoid nephrotoxic drug. Renally dose medication. Half-normal saline at the rate of 100 cc/h. Recheck BMP in the morning. Consult nephrology if needed (5) Elevated troponin I level Status: Acute Plan to address problem: Aspirin 325 mg p.o. daily. Lipitor 40 mg p.o. daily. Serial cardiac enzyme. Echocardiogram. Consult cardiology if needed (6) Asthma Status: Acute Plan to address problem: Oxygen by nasal cannula 3 L/min. Albuterol via nebulizer every 4 hours as needed. DuoNeb by nebulizer every 4 hours (7) DVT prophylaxis Status: Acute Plan to address problem: Heparin 5000 units subcu every 12 hours for DVT prophylaxis. Pepcid 20 mg p.o. twice daily for GI prophylaxis. Patient is a full code
[2022-07-08 04:55] LABS: Basophils % (Auto) 0.5 % (0.0-1.8); Eosinophils # (Auto) 0.1 K/mm3 (0.0-0.4); Eosinophils % (Auto) 1.1 % (0.0-4.3); Hematocrit 31.7 % (30.3-42.9); Hemoglobin 10.7 gm/dl (10.1-14.3); Lymphocytes # (Auto) 1.3 K/mm3 (1.2-5.4); Lymphocytes % (Auto) 14.1 % (13.4-35.0); Mean Corpuscular HGB Conc 34 % (30-34); Mean Corpuscular Volume 90 fl (79-97); Monocytes % (Auto) 10.1 % (0.0-7.3); Platelet Count 189 K/mm3 (140-440); Red Blood Count 3.54 M/mm3 (3.65-5.03); Red Cell Distribution Width 13.1 % (13.2-15.2)
[2022-07-08] MEDS: IPRATROPIUM/ALBUTEROL SULFATE 3 ML AMPUL.NEB IH SCH ×4 (08:08→21:11)
--- NOTE | 2022-07-08 09:44 | Electrocardiograph Report ---
[facility] Test Date: 2022-07-07 Test Time: 21:14:29 Pat Name: SHERIF JORDAN Department: Room: A464 1 Gender: F Endo Tech: OBED : 1960 Requested By: ANTONY DAVIS Order Number: [id number] Reading MD: Irwin Stout Measurements Intervals [place] Rate: 83 P: 240 [place]: 70 QRS: 12 QRSD: 96 T: QT: 407 QTc: 480 Interpretive Statements Sinus rhythm Compared to ECG 05/20/2022 19:48:25 No significant change Electronically Signed On 07-08-2022 9:44:29 EDT by Irwin Stout
[2022-07-08] MEDS ORDERED: FAMOTIDINE 20 MG/2 ML INJ IV SCH (10:00)
[2022-07-08] MEDS: FAMOTIDINE 20 MG/2 ML INJ IV SCH (11:38)
[2022-07-08] MEDS: ASPIRIN 325 MG TAB PO SCH (11:38)
[2022-07-08] MEDS: HEPARIN 5,000 UNIT/1 ML VIAL SUB-Q SCH ×2 (11:39→22:24)
[2022-07-08 13:25] LABS: Bacteria,Urine 1+ /HPF (Negative); Hyaline Casts,Urine 9 /LPF; Mucus,Urine FEW /HPF; RBC,Urine < 1.0 /HPF (0.0-6.0); WBC,Urine < 1.0 /HPF (0.0-6.0)
[2022-07-08 13:54] LABS: Color,Urine Straw (Yellow)
--- NOTE | 2022-07-08 14:28 | Progress Note ---
Assessment and Plan Assessment and plan: #Acute metabolic encephalopathy Unremarkable CT head noncontrast. Unremarkable urinalysis. Pending blood cultures. #Possible TIA Unremarkable CT head noncontrast. Pending MRI brain and MRA brain and neck with and without contrast. Pending TTE to evaluate possible ASD/PFO Continue aspirin 325 mg daily, Lipitor 40 mg daily Neurology consulted; pending recs #Insulin dependent type II diabetes mellitus - hemoglobin A1c: Unknown - home regimen: Lantus 5 units - current regimen: Moderate SSI - blood glucose goal 140-180 while inpatient - continue to monitor #Elevated troponin level #JULITA on CKD stage III secondary to vasomotor nephropathyimproving Creatinine 2.2--> 1.5 Troponin 0.044--> 0.167. Elevated troponins likely secondary to JULITA. Encouraging p.o. intake and continuing IV fluid resuscitation Renally dose meds and avoid nephrotoxic drugs. #Mild intermittent asthma Continue albuterol nebs every 4 hours as needed #Obesity #Weight loss counseling #Exercise counseling - BMI 30.9 - Counseled patient on the importance of weight loss, incorporating exercise, and dietary changes (lean meats, fresh fruits and vegetables, and water intake). Patient expresses understanding. - Time: +15 min #Advanced care planning -Disease education conducted, care plan discussed, diagnoses discussed, progn osis discussed, and patient acknowledges understanding with care plan -Time: +30 min Disposition Plan: Continue medical management Total Time Spent with Patient (Minutes): 45 minutes History Interval history: No acute events overnight. Hospitalist Physical - Constitutional Vitals: Temp Pulse Resp BP Pulse Ox 97.7 F 84 18 122/51 100 07/08/22 08:07 07/08/22 08:08 07/08/22 08:08 07/08/22 08:07 07/08/22 08:08 General appearance: Present: no acute distress, well-nourished, obese - EENT Eyes: Present: PERRL, EOM intact ENT: hearing intact, clear oral mucosa, dentition normal - Neck Neck: Present: supple, normal ROM - Respiratory Respiratory effort: normal Respiratory: bilateral: CTA - Cardiovascular Rhythm: regular Heart Sounds: Present: S1 & S2 - Extremities Extremities: no ischemia, pulses intact, pulses symmetrical, No edema, normal temperature, normal color Peripheral Pulses: within normal limits - Abdominal General gastrointestinal: soft, non-tender, non-distended, normal bowel sounds - Integumentary Integumentary: Present: clear, warm, dry - Psychiatric Psychiatric: appropriate mood/affect, cooperative, other (Dementia at baseline) - Neurologic Neurologic: CNII-XII intact, moves all extremities - Allied Health Allied health notes reviewed: nursing HEART Score - HEART Score Troponin: Troponin T 0.082 ng/mL (0.00-0.029) H D 07/08/22 09:14 Results - Labs CBC & Chem 7: 07/08/22 04:03 07/08/22 04:03 Labs: Laboratory Last Values WBC 9.4 K/mm3 (4.5-11.0) 07/08/22 04:03 RBC 3.54 M/mm3 (3.65-5.03) L 07/08/22 04:03 Hgb 10.7 gm/dl (10.1-14.3) 07/08/22 04:03 Hct 31.7 % (30.3-42.9) 07/08/22 04:03 MCV 90 fl (79-97) 07/08/22 04:03 MCH 30 pg (28-32) 07/08/22 04:03 MCHC 34 % (30-34) 07/08/22 04:03 RDW 13.1 % (13.2-15.2) L 07/08/22 04:03 Plt Count 189 K/mm3 (140-440) 07/08/22 04:03 Lymph % (Auto) 14.1 % (13.4-35.0) 07/08/22 04:03 [place] % (Auto) 10.1 % (0.0-7.3) H 07/08/22 04:03 Eos % (Auto) 1.1 % (0.0-4.3) 07/08/22 04:03 Baso % (Auto) 0.5 % (0.0-1.8) 07/08/22 04:03 Lymph # (Auto) 1.3 K/mm3 (1.2-5.4) 07/08/22 04:03 [place] # (Auto) 1.0 K/mm3 (0.0-0.8) H 07/08/22 04:03 Eos # (Auto) 0.1 K/mm3 (0.0-0.4) 07/08/22 04:03 Baso # (Auto) 0.0 K/mm3 (0.0-0.1) 07/08/22 04:03 Seg Neutrophils % 74.2 % (40.0-70.0) H 07/08/22 04:03 Seg Neutrophils # 7.0 K/mm3 (1.8-7.7) 07/08/22 04:03 PT 17.0 Sec. (12.2-14.9) H 07/07/22 20:25 INR 1.23 (0.87-1.13) H 07/07/22 20:25 Sodium 143 mmol/L (137-145) 07/08/22 04:03 Potassium 3.7 mmol/L (3.6-5.0) 07/08/22 04:03 Chloride 104.3 mmol/L (98-107) 07/08/22 04:03 Carbon Dioxide 28 mmol/L (22-30) 07/08/22 04:03 Anion Gap 14 mmol/L 07/08/22 04:03 BUN 77 mg/dL (7-17) H 07/08/22 04:03 Creatinine 1.5 mg/dL (0.6-1.2) H 07/08/22 04:03 Estimated GFR 43 ml/min 07/08/22 04:03 BUN/Creatinine Ratio 51 % 07/08/22 04:03 Glucose 157 mg/dL (65-100) H 07/08/22 04:03 Calcium 9.0 mg/dL (8.4-10.2) 07/08/22 04:03 Magnesium 2.80 mg/dL (1.7-2.3) H 07/07/22 20:25 Total Bilirubin 0.60 mg/dL (0.1-1.2) 07/07/22 20:25 AST 45 units/L (5-40) H 07/07/22 20:25 ALT 21 units/L (7-56) 07/07/22 20:25 Alkaline Phosphatase 134 units/L (35-129) H 07/07/22 20:25 Troponin T 0.082 ng/mL (0.00-0.029) H D 07/08/22 09:14 NT-Pro-B Natriuret Pep 44.72 pg/mL (0-900) 07/07/22 20:25 Total Protein 7.8 g/dL (6.3-8.2) 07/07/22 20:25 Albumin 4.0 g/dL (3.9-5) 07/07/22 20:25 Albumin/Globulin Ratio 1.1 % 07/07/22 20:25 Triglycerides 132 mg/dL (2-149) 07/07/22 20:25 Cholesterol 209 mg/dL (50-199) H 07/07/22 20:25 LDL Cholesterol Direct 121 mg/dL (50-130) 07/07/22 20:25 HDL Cholesterol 58 mg/dL (40-59) 07/07/22 20:25 Cholesterol/HDL Ratio 3.60 % 07/07/22 20:25 Urine Color Straw (Yellow) 07/08/22 Unknown Urine Turbidity Clear (Clear) 07/08/22 Unknown Specific [place] (Man) 1.010 (1.003-1.030) 07/08/22 Unknown Ur Protein (Man) <30 mg dl mg/dL (Negative) 07/08/22 Unknown Ur Ketones (Man) Negative (Negative) 07/08/22 Unknown Ur Nitrite (Man) Negative (Negative) 07/08/22 Unknown Ur Reducing Substances Not Reportable 07/08/22 Unknown Urine Bilirubin (Man) Negative (Negative) 07/08/22 Unknown Urine Ictotest Not Reportable 07/08/22 Unknown Leukocyte Esterase (Man) Negative (Negative) 07/08/22 Unknown Urine WBC (Auto) < 1.0 /HPF (0.0-6.0) 07/08/22 Unknown Urine RBC (Auto) < 1.0 /HPF (0.0-6.0) 07/08/22 Unknown U Epithel Cells (Auto) < 1.0 /HPF (0-13.0) 07/08/22 Unknown Urine Bacteria (Auto) 1+ /HPF (Negative) 07/08/22 Unknown Urine RBC (Manual) Negative (Negative) 07/08/22 Unknown Hyaline Casts 9 /LPF 07/08/22 Unknown Urine Mucus Few /HPF 07/08/22 Unknown Active Medications - Current Medications Current Medications: Generic Name Dose Route Start Last Admin Trade Name Freq PRN Reason Stop Dose Admin Acetaminophen 650 mg 07/07/22 22:50 Acetaminophen 325 Mg Tab PO Q4H PRN Pain MILD(1-3)/Fever >100.5/BOSE Albuterol 2.5 mg 07/07/22 22:50 Albuterol 2.5 Mg/3 Ml Nebu IH Q3HRT PRN Shortness Of Breath Albuterol/Ipratropium 1 ampul 07/08/22 02:00 07/08/22 08:08 Ipratropium/Albuterol Sulfate 3 Ml Ampul.Neb IH 1 ampul Q6HRT MANFRED Administration Aspirin 325 mg 07/08/22 10:00 07/08/22 11:38 Aspirin 325 Mg Tab PO 325 mg QDAY MANFRED Administration Atorvastatin Calcium 40 mg 07/08/22 22:00 Atorvastatin 40 Mg Tab PO QHS MANFRED Famotidine 20 mg 07/08/22 10:00 07/08/22 11:38 Famotidine 20 Mg/2 Ml Inj IV 20 mg DAILY MANFRED Administration Heparin Sodium (Porcine) 5,000 unit 07/08/22 10:00 07/08/22 11:39 Heparin 5,000 Unit/1 Ml Vial SUB-Q 5,000 unit Q12HR MANFRED Administration Sodium Chloride 1,000 mls @ 100 mls/hr 07/07/22 23:00 Nacl 0.45% 1000 Ml IV DIRECT MANFRED Labetalol HCl 10 mg 07/07/22 22:55 Labetalol 20 Mg/4 Ml Inj IV Q5MIN PRN to maintain SBP < 180 Morphine Sulfate 2 mg 07/07/22 22:50 Morphine 2 Mg/1 Ml Inj IV Q4H PRN Pain, Moderate (4-6) Morphine Sulfate 4 mg 07/07/22 22:50 Morphine 4 Mg/1 Ml Inj IV Q4H PRN Pain , Severe (7-10) Ondansetron HCl 4 mg 07/07/22 22:50 Ondansetron 4 Mg/2 Ml Inj IV Q8H PRN Nausea And Vomiting Sodium Chloride 10 ml 07/08/22 10:00 07/08/22 11:39 Sodium Chloride 0.9% 10 Ml Flush Syringe IV 10 ml BID MANFRED Administration Sodium Chloride 10 ml 07/07/22 22:50 Sodium Chloride 0.9% 10 Ml Flush Syringe IV PRN PRN LINE FLUSH
[2022-07-09] MEDS: IPRATROPIUM/ALBUTEROL SULFATE 3 ML AMPUL.NEB IH SCH ×4 (02:50→20:53)
[2022-07-09 04:55] LABS: Basophils % (Auto) 0.4 % (0.0-1.8); Eosinophils # (Auto) 0.1 K/mm3 (0.0-0.4); Eosinophils % (Auto) 0.7 % (0.0-4.3); Hematocrit 28.4 % (30.3-42.9); Hemoglobin 9.7 gm/dl (10.1-14.3); Lymphocytes # (Auto) 1.7 K/mm3 (1.2-5.4); Lymphocytes % (Auto) 22.3 % (13.4-35.0); Mean Corpuscular HGB Conc 34 % (30-34); Mean Corpuscular Volume 90 fl (79-97); Monocytes # (Auto) 1.1 K/mm3 (0.0-0.8); Monocytes % (Auto) 14.6 % (0.0-7.3); Platelet Count 195 K/mm3 (140-440); Red Blood Count 3.15 M/mm3 (3.65-5.03); Red Cell Distribution Width 13.4 % (13.2-15.2)
[2022-07-09 05:11] LABS: Calcium 8.9 mg/dL (8.4-10.2)
[2022-07-09] MEDS: ASPIRIN 325 MG TAB PO SCH (11:01)
[2022-07-09] MEDS: FAMOTIDINE 20 MG/2 ML INJ IV SCH (11:02)
[2022-07-09] MEDS: HEPARIN 5,000 UNIT/1 ML VIAL SUB-Q SCH ×2 (11:02→22:23)
--- NOTE | 2022-07-09 11:09 | Progress Note ---
Assessment and Plan Assessment and plan: #Acute metabolic encephalopathy Unremarkable CT head noncontrast. Unremarkable urinalysis. Unremarkable blood cultures x24 hours. #Possible TIA Unremarkable CT head noncontrast. Pending MRI brain and MRA brain and neck with and without contrast. Pending TTE to evaluate possible ASD/PFO. PT/OT consulted; pending recs Continue aspirin 325 mg daily, Lipitor 40 mg daily Neurology consulted; pending recs #Insulin dependent type II diabetes mellitus - hemoglobin A1c: Unknown - home regimen: Lantus 5 units - current regimen: Moderate SSI - blood glucose goal 140-180 while inpatient - continue to monitor #Elevated troponin level #JULITA on CKD stage III secondary to vasomotor nephropathyimproving Creatinine 2.2--> 1.5 Troponin 0.044--> 0.167. Elevated troponins likely secondary to JULITA. Encouraging p.o. intake and continuing IV fluid resuscitation Renally dose meds and avoid nephrotoxic drugs. #Mild intermittent asthma Continue albuterol nebs every 4 hours as needed #Obesity #Weight loss counseling #Exercise counseling - BMI 30.9 - Counseled patient on the importance of weight loss, incorporating exercise, and dietary changes (lean meats, fresh fruits and vegetables, and water intake). Patient expresses understanding. - Time: +15 min #Advanced care planning -Disease education conducted, care plan discussed, diagnoses discussed, prognosis discussed, and patient acknowledges understanding with care plan -Time: +30 min Disposition Plan: Continue medical management Total Time Spent with Patient (Minutes): 45 min History Interval history: No acute events overnight. Hospitalist Physical - Constitutional Vitals: Temp Pulse Resp BP Pulse Ox 99.5 F 96 H 18 112/59 98 07/09/22 05:00 07/09/22 08:43 07/09/22 08:43 07/09/22 05:00 07/09/22 08:17 General appearance: Present: no acute distress, well-nourished, obese - EENT Eyes: Present: PERRL, EOM intact ENT: hearing intact, clear oral mucosa, dentition normal - Neck Neck: Present: supple, normal ROM - Respiratory Respiratory effort: normal Respiratory: bilateral: CTA - Cardiovascular Rhythm: regular Heart Sounds: Present: S1 & S2 - Extremities Extremities: no ischemia, pulses intact, pulses symmetrical, No edema, normal temperature, normal color Peripheral Pulses: within normal limits - Abdominal General gastrointestinal: soft, non-tender, non-distended, normal bowel sounds - Integumentary Integumentary: Present: clear, warm, dry - Psychiatric Psychiatric: appropriate mood/affect, cooperative - Neurologic Neurologic: CNII-XII intact, focal deficits (Decreased fine motor control of bilateral UE; 3/5 strength of bilateral UE), other (Alert and oriented x2 (cannot recite year or state). ) - Allied Health Allied health notes reviewed: nursing HEART Score - HEART Score Troponin: Troponin T 0.082 ng/mL (0.00-0.029) H D 07/08/22 09:14 Results - Labs CBC & Chem 7: 07/09/22 04:19 07/09/22 04:19 Labs: Laboratory Last Values WBC 7.7 K/mm3 (4.5-11.0) 07/09/22 04:19 RBC 3.15 M/mm3 (3.65-5.03) L 07/09/22 04:19 Hgb 9.7 gm/dl (10.1-14.3) L 07/09/22 04:19 Hct 28.4 % (30.3-42.9) L 07/09/22 04:19 MCV 90 fl (79-97) 07/09/22 04:19 MCH 31 pg (28-32) 07/09/22 04:19 MCHC 34 % (30-34) 07/09/22 04:19 RDW 13.4 % (13.2-15.2) 07/09/22 04:19 Plt Count 195 K/mm3 (140-440) 07/09/22 04:19 Lymph % (Auto) 22.3 % (13.4-35.0) 07/09/22 04:19 [place] % (Auto) 14.6 % (0.0-7.3) H 07/09/22 04:19 Eos % (Auto) 0.7 % (0.0-4.3) 07/09/22 04:19 Baso % (Auto) 0.4 % (0.0-1.8) 07/09/22 04:19 Lymph # (Auto) 1.7 K/mm3 (1.2-5.4) 07/09/22 04:19 [place] # (Auto) 1.1 K/mm3 (0.0-0.8) H 07/09/22 04:19 Eos # (Auto) 0.1 K/mm3 (0.0-0.4) 07/09/22 04:19 Baso # (Auto) 0.0 K/mm3 (0.0-0.1) 07/09/22 04:19 Seg Neutrophils % 62.0 % (40.0-70.0) 07/09/22 04:19 Seg Neutrophils # 4.8 K/mm3 (1.8-7.7) 07/09/22 04:19 PT 17.0 Sec. (12.2-14.9) H 07/07/22 20:25 INR 1.23 (0.87-1.13) H 07/07/22 20:25 Sodium 145 mmol/L (137-145) 07/09/22 04:19 Potassium 3.7 mmol/L (3.6-5.0) 07/09/22 04:19 Chloride 108.8 mmol/L (98-107) H 07/09/22 04:19 Carbon Dioxide 25 mmol/L (22-30) 07/09/22 04:19 Anion Gap 15 mmol/L 07/09/22 04:19 BUN 53 mg/dL (7-17) H 07/09/22 04:19 Creatinine 1.2 mg/dL (0.6-1.2) 07/09/22 04:19 Estimated GFR 55 ml/min 07/09/22 04:19 BUN/Creatinine Ratio 44 % 07/09/22 04:19 Glucose 173 mg/dL (65-100) H 07/09/22 04:19 Calcium 8.9 mg/dL (8.4-10.2) 07/09/22 04:19 Magnesium 2.80 mg/dL (1.7-2.3) H 07/07/22 20:25 Total Bilirubin 0.60 mg/dL (0.1-1.2) 07/07/22 20:25 AST 45 units/L (5-40) H 07/07/22 20:25 ALT 21 units/L (7-56) 07/07/22 20:25 Alkaline Phosphatase 134 units/L (35-129) H 07/07/22 20:25 Troponin T 0.082 ng/mL (0.00-0.029) H D 07/08/22 09:14 NT-Pro-B Natriuret Pep 44.72 pg/mL (0-900) 07/07/22 20:25 Total Protein 7.8 g/dL (6.3-8.2) 07/07/22 20:25 Albumin 4.0 g/dL (3.9-5) 07/07/22 20:25 Albumin/Globulin Ratio 1.1 % 07/07/22 20:25 Triglycerides 132 mg/dL (2-149) 07/07/22 20:25 Cholesterol 209 mg/dL (50-199) H 07/07/22 20:25 LDL Cholesterol Direct 121 mg/dL (50-130) 07/07/22 20:25 HDL Cholesterol 58 mg/dL (40-59) 07/07/22 20:25 Cholesterol/HDL Ratio 3.60 % 07/07/22 20:25 Urine Color Straw (Yellow) 07/08/22 Unknown Urine Turbidity Clear (Clear) 07/08/22 Unknown Specific [place] (Man) 1.010 (1.003-1.030) 07/08/22 Unknown Ur Protein (Man) <30 mg dl mg/dL (Negative) 07/08/22 Unknown Ur Ketones (Man) Negative (Negative) 07/08/22 Unknown Ur Nitrite (Man) Negative (Negative) 07/08/22 Unknown Ur Reducing Substances Not Reportable 07/08/22 Unknown Urine Bilirubin (Man) Negative (Negative) 07/08/22 Unknown Urine Ictotest Not Reportable 07/08/22 Unknown Leukocyte Esterase (Man) Negative (Negative) 07/08/22 Unknown Urine WBC (Auto) < 1.0 /HPF (0.0-6.0) 07/08/22 Unknown Urine RBC (Auto) < 1.0 /HPF (0.0-6.0) 07/08/22 Unknown U Epithel Cells (Auto) < 1.0 /HPF (0-13.0) 07/08/22 Unknown Urine Bacteria (Auto) 1+ /HPF (Negative) 07/08/22 Unknown Urine RBC (Manual) Negative (Negative) 07/08/22 Unknown Hyaline Casts 9 /LPF 07/08/22 Unknown Urine Mucus Few /HPF 07/08/22 Unknown Microbiology: Microbiology 07/08/22 14:47 Peripheral/Venous Blood Culture - Preliminary Culture in Progress 07/08/22 14:47 Peripheral/Venous Blood Culture - Preliminary Culture in Progress [place]/IV: Voiding Method External Female Catheter Active Medications - Current Medications Current Medications: Generic Name Dose Route Start Last Admin Trade Name Freq PRN Reason Stop Dose Admin Acetaminophen 650 mg 07/07/22 22:50 Acetaminophen 325 Mg Tab PO Q4H PRN Pain MILD(1-3)/Fever >100.5/BOSE Albuterol 2.5 mg 07/07/22 22:50 Albuterol 2.5 Mg/3 Ml Nebu IH Q3HRT PRN Shortness Of Breath Albuterol/Ipratropium 1 ampul 07/08/22 02:00 07/09/22 08:42 Ipratropium/Albuterol Sulfate 3 Ml Ampul.Neb IH 1 ampul Q6HRT MANFRED Administration Aspirin 325 mg 07/08/22 10:00 07/09/22 11:01 Aspirin 325 Mg Tab PO 325 mg QDAY MANFRED Administration Atorvastatin Calcium 40 mg 07/08/22 22:00 07/08/22 22:24 Atorvastatin 40 Mg Tab PO 40 mg QHS MANFRED Administration Famotidine 20 mg 07/08/22 10:00 07/09/22 11:02 Famotidine 20 Mg/2 Ml Inj IV 20 mg DAILY MANFRED Administration Heparin Sodium (Porcine) 5,000 unit 07/08/22 10:00 07/09/22 11:02 Heparin 5,000 Unit/1 Ml Vial SUB-Q 5,000 unit Q12HR MANFRED Administration Sodium Chloride 1,000 mls @ 100 mls/hr 07/07/22 23:00 07/08/22 20:18 Nacl 0.45% 1000 Ml IV 100 mls/hr DIRECT MANFRED Administration Labetalol HCl 10 mg 07/07/22 22:55 Labetalol 20 Mg/4 Ml Inj IV Q5MIN PRN to maintain SBP < 180 Morphine Sulfate 2 mg 07/07/22 22:50 Morphine 2 Mg/1 Ml Inj IV Q4H PRN Pain, Moderate (4-6) Morphine Sulfate 4 mg 07/07/22 22:50 Morphine 4 Mg/1 Ml Inj IV Q4H PRN Pain , Severe (7-10) Ondansetron HCl 4 mg 07/07/22 22:50 Ondansetron 4 Mg/2 Ml Inj IV Q8H PRN Nausea And Vomiting Sodium Chloride 10 ml 07/08/22 10:00 07/09/22 11:02 Sodium Chloride 0.9% 10 Ml Flush Syringe IV 10 ml BID MANFRED Administration Sodium Chloride 10 ml 07/07/22 22:50 Sodium Chloride 0.9% 10 Ml Flush Syringe IV PRN PRN LINE FLUSH
[2022-07-09] MEDS ORDERED: ALBUTEROL 2.5 MG/3 ML NEBU IH PRN (13:58)
--- NOTE | 2022-07-09 15:14 | Consultation ---
History of Present Illness Consult date: 07/09/22 Reason for Consult: TIA History of present illness: 62-year-old female with medical history of dementia, asthma, hypertension, diabetes and also patient had a TIA about a month ago brought in by EMS with concerns of altered mental status which according to EMS from the family at that patient was confused when she had a stroke last time. At the time my evaluation patient; patient just came in from the ambulance bay and on my initial examinat ion patient appears AO x1 does not know what year where she is. Patient has no lateralization and no focal neurologic deficit. NIH scale is [address] scan of the head showed central greater than cortical parenchymal volume loss. No acute intracranial abnormality. Also patient has BUN of 84 creatinine 2.2, troponin of 0.067. Subsequently patient was seen and evaluated by telemetry neurology. we were going to admit the patient, we will put the patient on CVA pathway, do MRI of the brain and consult neurology for evaluation. Reviewed above history ,per patient there is improvement .The patient reports that there is no headaches, dizziness . Past History Past Medical History: diabetes, hypertension, other (Asthma) Past Surgical History: No surgical history Social history: smoking Family history: hypertension Medications and Allergies Allergies Allergy/AdvReac Type Severity Reaction Status Date / Time No Known Allergies Allergy Unverified 05/20/22 19:47 Home Medications Medication Instructions Recorded Confirmed Last Taken Type Aspirin 81 mg PO QDAY #30 tablet 05/22/22 Unknown Rx Clopidogrel [Plavix] 75 mg PO QDAY #21 tablet 05/22/22 Unknown Rx Gabapentin 600 mg PO BID #120 capsule 05/22/22 Unknown Rx Insulin Glargine [Lantus VIAL] 5 units SUB-Q QHS #1 vial 05/22/22 Unknown Rx Active Meds: Active Medications Acetaminophen (Acetaminophen 325 Mg Tab) 650 mg PO Q4H PRN PRN Reason: Pain MILD(1-3)/Fever >100.5/BOSE Albuterol (Albuterol 2.5 Mg/3 Ml Nebu) 2.5 mg IH Q4HRT PRN PRN Reason: Shortness Of Breath Albuterol/Ipratropium (Ipratropium/Albuterol Sulfate 3 Ml Ampul.Neb) 1 ampul IH TIDRT MANFRED Aspirin (Aspirin 325 Mg Tab) 325 mg PO QDAY [facility] Last Admin: 07/09/22 11:01 Dose: 325 mg Atorvastatin Calcium (Atorvastatin 40 Mg Tab) 40 mg PO QHS [facility] Last Admin: 07/08/22 22:24 Dose: 40 mg Famotidine (Famotidine 20 Mg/2 Ml Inj) 20 mg IV DAILY [facility] Last Admin: 07/09/22 11:02 Dose: 20 mg Heparin Sodium (Porcine) (Heparin 5,000 Unit/1 Ml Vial) 5,000 unit SUB-Q Q12HR [facility] Last Admin: 07/09/22 11:02 Dose: 5,000 unit Sodium Chloride (Nacl 0.45% 1000 Ml) 1,000 mls @ 100 mls/hr IV DIRECT [facility] Last Admin: 07/08/22 20:18 Dose: 100 mls/hr Labetalol HCl (Labetalol 20 Mg/4 Ml Inj) 10 mg IV Q5MIN PRN PRN Reason: to maintain SBP < 180 Morphine Sulfate (Morphine 2 Mg/1 Ml Inj) 2 mg IV Q4H PRN PRN Reason: Pain, Moderate (4-6) Morphine Sulfate (Morphine 4 Mg/1 Ml Inj) 4 mg IV Q4H PRN PRN Reason: Pain , Severe (7-10) Ondansetron HCl (Ondansetron 4 Mg/2 Ml Inj) 4 mg IV Q8H PRN PRN Reason: Nausea And Vomiting Sodium Chloride (Sodium Chloride 0.9% 10 Ml Flush Syringe) 10 ml IV BID [facility] Last Admin: 07/09/22 11:02 Dose: 10 ml Sodium Chloride (Sodium Chloride 0.9% 10 Ml Flush Syringe) 10 ml IV PRN PRN PRN Reason: LINE FLUSH Physical Examination - Vital Signs Vital Signs: Vital Signs Temp Pulse Resp BP Pulse Ox 98 F 88 20 116/58 100 07/07/22 19:21 07/07/22 19:21 07/07/22 19:21 07/07/22 19:21 07/07/22 19:21 - Physical Exam Narrative exam: The patient is alert , there is mild dysarthria . The patient does not know the year, knows the hospital . The patient is able to follow some commands . Moves both LE , there seems to be edema there is minimal movement in the LE . Results - Laboratory Findings CBC and BMP: 07/09/22 04:19 07/09/22 04:19 Abnormal Lab Findings: Abnormal Labs 08/27/22 08/27/22 08/27/22 20:25 20:25 20:25 WBC 11.8 H RBC Hgb Hct RDW 13.1 L [place] % (Auto) [place] # (Auto) Seg Neutrophils % PT 17.0 H INR 1.23 H Chloride 96.4 L BUN 84 H Creatinine 2.2 H Glucose 169 H Magnesium 2.80 H AST 45 H Alkaline Phosphatase 134 H Troponin T 0.067 H Cholesterol 209 H 07/08/22 07/08/22 07/08/22 04:03 04:03 09:14 WBC RBC 3.54 L Hgb Hct RDW 13.1 L [place] % (Auto) 10.1 H [place] # (Auto) 1.0 H Seg Neutrophils % 74.2 H PT INR Chloride BUN 77 H Creatinine 1.5 H Glucose 157 H Magnesium AST Alkaline Phosphatase Troponin T 0.082 H D Cholesterol 07/09/22 07/09/22 04:19 04:19 WBC RBC 3.15 L Hgb 9.7 L Hct 28.4 L RDW [place] % (Auto) 14.6 H [place] # (Auto) 1.1 H Seg Neutrophils % PT INR Chloride 108.8 H BUN 53 H Creatinine Glucose 173 H Magnesium AST Alkaline Phosphatase Troponin T Cholesterol Assessment and Plan 1. Encephalopathy - ( improvement ). 2. Paraparesis - needs further evaluation -MRI Brain + MRI Cervical and Thoracic Spine . 3. PT and OT 4. Continue All Home Medications . 5. Follow up with results . Dr. Alicea
[2022-07-10] MEDS: IPRATROPIUM/ALBUTEROL SULFATE 3 ML AMPUL.NEB IH SCH ×4 (08:02→20:59)
[2022-07-10] MEDS: HEPARIN 5,000 UNIT/1 ML VIAL SUB-Q SCH ×2 (10:00→21:46)
--- NOTE | 2022-07-10 12:40 | Magnetic Resonance Report ---
MR brain wo con, MR MRA/MRV head wo con INDICATION / CLINICAL INFORMATION: stroke, AMS PATIENT MOTION, BEST POSSIBLE SCAN, PATIENT MEDICATED PRIOR TO STUDY, CONTINUED TO MOVE A ND TALK.. TECHNIQUE: Multiplanar, multisequence MRI of the brain. MRA of the head. 3-D/MIP reformats postprocessed. Percentage stenosis is determined by direct quantit ative measurements of distal internal carotid artery diameter compared with normal reference segments or by criteria similar to NASCET where applicable. COMPARISON: MR brain 05/22/2022 FINDINGS: BRAIN: Intracranial: No restricted diffusion. No hemorrhage. Ventricular caliber is normal. No extra-axial c ollection. No mass. No herniation. Orbits: No significant abnormality of visualized orbits. Sinuses/mastoid: No significant abnormality of visualized sinuses and mastoid air cells. Additional findings: None. MRA HEAD: Intracranial vertebral arteries: No occlusion or significant stenosis. Basilar artery: No occlusion or significant stenosis. Posterior cerebral arteries: No occlusion or significant stenosis. Intracranial internal carotid arteries: No occlusion or significant stenosis. Anterior cerebral arteries: No occlusion or significant stenosis. Middle cerebral arteries: No occlusion or significant stenosis. No aneurysm. Additional findings: None. IMPRESSION: 1. MRI Brain: No significant intracranial abnormality. 2. MRA Head: No aneurysm. No occlusion or hemodynamically significant stenosis. Signer Name: Jose Monique MD Signed: 07/10/2022 12:36 PM Workstation Name: [email or web address]
--- NOTE | 2022-07-10 13:27 | Progress Note ---
Assessment and Plan Assessment and plan: #Acute metabolic encephalopathy Unremarkable CT head noncontrast. Unremarkable urinalysis. Unremarkable blood cultures x24 hours. #Possible TIA Unremarkable CT head noncontrast. MRI brain and MRA brain and neck shows no significant stenosis TTE 05/2022 results reviewed, there was no evidence of PFO at that time. - PT/OT recommend subacute rehab, patient without insurance and will not be able to afford dme and rehab Continue aspirin 325 mg daily, Lipitor 40 mg daily Neurology consulted; recs appreciated #Insulin dependent type II diabetes mellitus - hemoglobin A1c: Unknown - home regimen: Lantus 5 units - current regimen: Moderate SSI - blood glucose goal 140-180 while inpatient - continue to monitor #NSTEMI type II, secondary to renal function #JULITA on CKD stage III secondary to vasomotor nephropathyimproving Creatinine now 1.2 Troponin 0.044--> 0.167. Elevated troponins likely secondary to JULITA. Encouraging p.o. intake and continuing IV fluid resuscitation Renally dose meds and avoid nephrotoxic drugs. #Mild intermittent asthma Continue albuterol nebs every 4 hours as needed #Obesity #Weight loss counseling #Exercise counseling - BMI 30.9 - Counseled patient on the importance of weight loss, incorporating exercise, and dietary changes (lean meats, fresh fruits and vegetables, and water intake). Patient expresses understanding. - Time: +15 min #Advanced care planning -Disease education conducted, care plan discussed, diagnoses discussed, prognosis discussed, and patient acknowledges understanding with care plan -Time: +30 min History Interval history: No acute events overnight. Patient appears to be alert and oriented but sometimes is not responding appropriately to questions. Patient updated about current care plan and is agreeable. Hospitalist Physical - Physical exam Narrative exam: GENERAL: Well-developed well-nourished. In no acute distress. HEENT: Normocephalic. Atraumatic. NECK: Supple. CHEST/LUNGS: CTAB on room air HEART/CARDIOVASCULAR: RRR. No murmur, rubs or gallops appreciated. ABDOMEN: +BS. NT/ND. SKIN: No rashes noted. NEURO: No focal motor deficit. Follows all commands and is ambulatory. MUSCULOSKELETAL: No joint effusion EXTREMITIES: No cyanosis, clubbing. Non-pitting edema of bilateral LE. PSYCH: Cooperative. - Constitutional Vitals: Temp Pulse Resp BP Pulse Ox 97.8 F 96 H 18 147/61 100 07/10/22 07:33 07/10/22 12:58 07/10/22 12:58 07/10/22 07:33 07/10/22 08:04 General appearance: Present: no acute distress, well-nourished, obese HEART Score - HEART Score Troponin: Troponin T 0.082 ng/mL (0.00-0.029) H D 07/08/22 09:14 Results - Labs CBC & Chem 7: 07/09/22 04:19 07/09/22 04:19 Labs: Laboratory Last Values WBC 7.7 K/mm3 (4.5-11.0) 07/09/22 04:19 RBC 3.15 M/mm3 (3.65-5.03) L 07/09/22 04:19 Hgb 9.7 gm/dl (10.1-14.3) L 07/09/22 04:19 Hct 28.4 % (30.3-42.9) L 07/09/22 04:19 MCV 90 fl (79-97) 07/09/22 04:19 MCH 31 pg (28-32) 07/09/22 04:19 MCHC 34 % (30-34) 07/09/22 04:19 RDW 13.4 % (13.2-15.2) 07/09/22 04:19 Plt Count 195 K/mm3 (140-440) 07/09/22 04:19 Lymph % (Auto) 22.3 % (13.4-35.0) 07/09/22 04:19 [place] % (Auto) 14.6 % (0.0-7.3) H 07/09/22 04:19 Eos % (Auto) 0.7 % (0.0-4.3) 07/09/22 04:19 Baso % (Auto) 0.4 % (0.0-1.8) 07/09/22 04:19 Lymph # (Auto) 1.7 K/mm3 (1.2-5.4) 07/09/22 04:19 [place] # (Auto) 1.1 K/mm3 (0.0-0.8) H 07/09/22 04:19 Eos # (Auto) 0.1 K/mm3 (0.0-0.4) 07/09/22 04:19 Baso # (Auto) 0.0 K/mm3 (0.0-0.1) 07/09/22 04:19 Seg Neutrophils % 62.0 % (40.0-70.0) 07/09/22 04:19 Seg Neutrophils # 4.8 K/mm3 (1.8-7.7) 07/09/22 04:19 PT 17.0 Sec. (12.2-14.9) H 07/07/22 20:25 INR 1.23 (0.87-1.13) H 07/07/22 20:25 Sodium 145 mmol/L (137-145) 07/09/22 04:19 Potassium 3.7 mmol/L (3.6-5.0) 07/09/22 04:19 Chloride 108.8 mmol/L (98-107) H 07/09/22 04:19 Carbon Dioxide 25 mmol/L (22-30) 07/09/22 04:19 Anion Gap 15 mmol/L 07/09/22 04:19 BUN 53 mg/dL (7-17) H 07/09/22 04:19 Creatinine 1.2 mg/dL (0.6-1.2) 07/09/22 04:19 Estimated GFR 55 ml/min 07/09/22 04:19 BUN/Creatinine Ratio 44 % 07/09/22 04:19 Glucose 173 mg/dL (65-100) H 07/09/22 04:19 Calcium 8.9 mg/dL (8.4-10.2) 07/09/22 04:19 Magnesium 2.80 mg/dL (1.7-2.3) H 07/07/22 20:25 Total Bilirubin 0.60 mg/dL (0.1-1.2) 07/07/22 20:25 AST 45 units/L (5-40) H 07/07/22 20:25 ALT 21 units/L (7-56) 07/07/22 20:25 Alkaline Phosphatase 134 units/L (35-129) H 07/07/22 20:25 Troponin T 0.082 ng/mL (0.00-0.029) H D 07/08/22 09:14 NT-Pro-B Natriuret Pep 44.72 pg/mL (0-900) 07/07/22 20:25 Total Protein 7.8 g/dL (6.3-8.2) 07/07/22 20:25 Albumin 4.0 g/dL (3.9-5) 07/07/22 20:25 Albumin/Globulin Ratio 1.1 % 07/07/22 20:25 Triglycerides 132 mg/dL (2-149) 07/07/22 20:25 Cholesterol 209 mg/dL (50-199) H 07/07/22 20:25 LDL Cholesterol Direct 121 mg/dL (50-130) 07/07/22 20:25 HDL Cholesterol 58 mg/dL (40-59) 07/07/22 20:25 Cholesterol/HDL Ratio 3.60 % 07/07/22 20:25 Urine Color Straw (Yellow) 07/08/22 Unknown Urine Turbidity Clear (Clear) 07/08/22 Unknown Specific Crane (Man) 1.010 (1.003-1.030) 07/08/22 Unknown Ur Protein (Man) <30 mg dl mg/dL (Negative) 07/08/22 Unknown Ur Ketones (Man) Negative (Negative) 07/08/22 Unknown Ur Nitrite (Man) Negative (Negative) 07/08/22 Unknown Ur Reducing Substances Not Reportable 07/08/22 Unknown Urine Bilirubin (Man) Negative (Negative) 07/08/22 Unknown Urine Ictotest Not Reportable 07/08/22 Unknown Leukocyte Esterase (Man) Negative (Negative) 07/08/22 Unknown Urine WBC (Auto) < 1.0 /HPF (0.0-6.0) 07/08/22 Unknown Urine RBC (Auto) < 1.0 /HPF (0.0-6.0) 07/08/22 Unknown U Epithel Cells (Auto) < 1.0 /HPF (0-13.0) 07/08/22 Unknown Urine Bacteria (Auto) 1+ /HPF (Negative) 07/08/22 Unknown Urine RBC (Manual) Negative (Negative) 07/08/22 Unknown Hyaline Casts 9 /LPF 07/08/22 Unknown Urine Mucus Few /HPF 07/08/22 Unknown Microbiology: Microbiology 07/08/22 14:47 Peripheral/Venous Blood Culture - Preliminary NO GROWTH AFTER 24 HOURS 07/08/22 14:47 Peripheral/Venous Blood Culture - Preliminary NO GROWTH AFTER 24 HOURS Haque/IV: Voiding Method External Female Catheter Active Medications - Current Medications Current Medications: Generic Name Dose Route Start Last Admin Trade Name Freq PRN Reason Stop Dose Admin Acetaminophen 650 mg 07/07/22 22:50 Acetaminophen 325 Mg Tab PO Q4H PRN Pain MILD(1-3)/Fever >100.5/BOSE Albuterol 2.5 mg 07/09/22 13:58 Albuterol 2.5 Mg/3 Ml Nebu IH Q4HRT PRN Shortness Of Breath Albuterol/Ipratropium 1 ampul 07/09/22 20:00 07/10/22 13:02 Ipratropium/Albuterol Sulfate 3 Ml Ampul.Neb IH Not Given TIDRT MANFRED Aspirin 325 mg 07/08/22 10:00 07/09/22 11:01 Aspirin 325 Mg Tab PO 325 mg QDAY MANFRED Administration Atorvastatin Calcium 40 mg 07/08/22 22:00 07/09/22 22:23 Atorvastatin 40 Mg Tab PO 40 mg QHS MANFRED Administration Famotidine 20 mg 07/10/22 10:00 Famotidine 20 Mg/2 Ml Inj IV BID MANFRED Heparin Sodium (Porcine) 5,000 unit 07/08/22 10:00 07/09/22 22:23 Heparin 5,000 Unit/1 Ml Vial SUB-Q 5,000 unit Q12HR MANFRED Administration Sodium Chloride 1,000 mls @ 100 mls/hr 07/07/22 23:00 07/08/22 20:18 Nacl 0.45% 1000 Ml IV 100 mls/hr DIRECT MANFRED Administration Labetalol HCl 10 mg 07/07/22 22:55 Labetalol 20 Mg/4 Ml Inj IV Q5MIN PRN to maintain SBP < 180 Morphine Sulfate 2 mg 07/07/22 22:50 07/10/22 11:08 Morphine 2 Mg/1 Ml Inj IV 2 mg Q4H PRN Administration Pain, Moderate (4-6) Morphine Sulfate 4 mg 07/07/22 22:50 Morphine 4 Mg/1 Ml Inj IV Q4H PRN Pain , Severe (7-10) Ondansetron HCl 4 mg 07/07/22 22:50 Ondansetron 4 Mg/2 Ml Inj IV Q8H PRN Nausea And Vomiting Sodium Chloride 10 ml 07/08/22 10:00 07/10/22 11:28 Sodium Chloride 0.9% 10 Ml Flush Syringe IV 10 ml BID MANFRED Administration Sodium Chloride 10 ml 07/07/22 22:50 Sodium Chloride 0.9% 10 Ml Flush Syringe IV PRN PRN LINE FLUSH Nutrition/Malnutrition Assess - Dietary Evaluation Nutrition/Malnutrition Findings: Nutrition Notes Start: 07/09/22 15:54 Freq: Status: Active Protocol: Document 07/09/22 15:54 KARL (Rec: 07/09/22 16:15 KARL [id number]) Nutrition Notes Need for Assessment generated from: tip puncher Initial or Follow up Assessment Current Diagnosis Acute Kidney Injury,CKD(stage I-IV),Diabetes,Hypertension, Stroke Other Pertinent Diagnosis Metabolic Encephalopathy, Paraparesis, s/p TIA, Elevated Troponin, Asthma, Current Diet Consistent Carbohydrates Diet (since L 07/08). Labs/Tests 07/09: Cl 108.8, BUN 53, Glu 173, Mg 2.8. Pertinent Medications 07/09: Nutritionally unremarkable. 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 Weight Status Obese Subjective/Other Information RD consult for skin risk assessment. No reports available on Pt's PO intake of meals at the time , will assess at F/U. Pt is on Room Air, O2 saturation @ 98%, according to Physical Assessment History notes. Pt presents bilateral-LE Pitting Edema 2+, according to Physical Assessment History notes. {t shows bilateral-thighs unspecified dryness as sign of concern for skin risk at the time, according to Physical Assessment History notes. Percent of energy/protein needs met: Prescribed Consistent Carbohydrates Diet provides for energy/protein needs (2, 061 Kcal/91 g) during LOS. Burn Absent Trauma Absent GI Symptoms None Food Allergy No Skin Integrity/Comment Bilateral-thigh unspecified dryness Minimum of two criteria No Fluid Accumulation Moderate to Severe (severe) Reduced Geology Professor Strength N/A (non-severe) Protein-Calorie Malnutrition N\A #1 Nutrition Diagnosis Overweight/obesity Etiology Possibly secondary to lifestyle. As Evidenced by Signs and Symptoms BMI: 31.1 Kg/m2. Is patient on ventilator? No Is Patient Ambulatory and/or Out of Bed No [facility] 1645.368 Kcal/Kg value to use for calculation 18 Approximate Energy Requirements Using 1480 kcal/Kg Calculation Used for Recommendations Kcal/kg Additional Notes Protein: 0.8-1.2 g/Kg AdjBW; 55-83 g/day. Fluids: 1 ml/Kcal, or as per MD. Nutrition Intervention Change Diet Order: Continue Consistent Carbohydrates Diet as tolerated. Goal #1 Adjust the dietary intervention to better serve Pt's needs and clinical conditions during LOS. Follow-Up By: 07/16/22 Additional Comments Continue monitoring food tolerance, %PO intake of meals , and BM.
[2022-07-10] MEDS: ASPIRIN 325 MG TAB PO SCH (19:10)
[2022-07-10] MEDS: FAMOTIDINE 20 MG/2 ML INJ IV SCH ×2 (19:12→21:46)
--- NOTE | 2022-07-11 08:07 | Discharge Summary ---
Providers - Providers Date of Admission: 07/07/22 22:50 Date of discharge: 07/11/22 Attending physician: MARIELY SOUZA MD 07/07/22 22:50 Consult to Physician [CONS] Routine Comment: Consulting Provider: DEBBY PADILLA Physician Instructions: Reason For Exam: cva 07/07/22 22:55 Occupational Therapy Evaluate and Treat [CONS] Routine Comment: Reason For Exam: Neuro deficits Physical Therapy Evaluation and Treat [CONS] Routine Comment: Reason For Exam: Neuro deficits 07/10/22 13:29 Consult to Case Management [CONS] Routine Services Needed at Discharge: Home Health Services Notified:: case management Additional Physician Instructions: patient uninsured and cannot be discharge to [facility] Primary care physician: MIRI MARKHAM Hospitalization Reason for admission: acute encephalopathy Condition: Stable Hospital course: Patient is a 62-year-old female with history of dementia, recent TIA hypertension and diabetes who was brought by family with concerns of altered mental status. Initial CT of the head showed central greater than cortical cortical volume loss but no intracranial abnormality. She was found to have an JULITA. Her kidney function improved with IV fluids. MRI of the brain showed no significant abnormality and MRA of the head showed no aneurysm, occlusion or hemodynamically significant stenosis. Neurology and physical therapy evaluated the patient prior to discharge. Once clinically stable, she was discharged home. Disposition: 06 HOME HEALTH CARE SERVICE Final Discharge Diagnosis (Prints w/discharge instructions): Acute toxic metabolic encephalopathy-resolved. TIA cannot be completely ruled out. NSTEMI type II. Acute kidney injury, unspecified on CKD stage III. Insulin-dependent type 2 diabetes. Mild intermittent asthma. Obesity Time spent for discharge: 40 minutes Core Measure Documentation - Palliative Care Palliative Care/ Comfort Measures: Not Applicable - Core Measures Any of the following diagnoses?: stroke - Stroke Discharge Requirements Statin for LDL = or >70 mg/dl on DC: Yes Anticoag for atrial fib/atrial flutter: Not Applicable Antithrombotic for ischemic stroke: Yes Exam - Physical Exam Narrative exam: GENERAL: Well-developed well-nourished. In no acute distress. HEENT: Normocephalic. Atraumatic. NECK: Supple. CHEST/LUNGS: CTAB on room air HEART/CARDIOVASCULAR: RRR. No murmur, rubs or gallops appreciated. ABDOMEN: +BS. NT/ND. SKIN: No rashes noted. NEURO: No focal motor deficit. Follows all commands and is ambulatory. MUSCULOSKELETAL: No joint effusion EXTREMITIES: No cyanosis, clubbing. Non-pitting edema of bilateral LE. PSYCH: Cooperative. - Constitutional Vitals: Temp Pulse Resp BP Pulse Ox 98.7 F 82 14 144/73 95 07/11/22 03:07 07/11/22 04:00 07/11/22 03:07 07/11/22 03:07 07/11/22 03:07 Plan Care Plan Goals: Please follow-up with your primary care provider. Our imaging did not indicate a stroke. We cannot completely rule out a transient ischemic attack. Please have your primary care provider to refer you to a sales support coordinator for an event monitor. Please take all medications as they are prescribed to you. Follow up with: MIRI MARKHAM MD [Primary Care Provider] - 7 Days Prescriptions: AtorvaSTATin [Lipitor] 40 mg PO QHS 90 Days #90 tablet Aspirin 325 mg PO QDAY 90 Days #90 tablet
[2022-07-11] MEDS: ASPIRIN 325 MG TAB PO SCH (09:18)
[2022-07-11] MEDS: FAMOTIDINE 20 MG/2 ML INJ IV SCH (09:18)
[2022-07-11] MEDS: HEPARIN 5,000 UNIT/1 ML VIAL SUB-Q SCH (09:18)
[2022-07-11] MEDS: IPRATROPIUM/ALBUTEROL SULFATE 3 ML AMPUL.NEB IH SCH ×3 (10:21→21:47)
[2022-07-11 21:27] VITALS: BP 143/69
== END 2022-07-11 20:00 | disposition home health service (06) | DRG 70 ==
LOC: ED 19:20 → 4A 22:50
PROVIDERS: ADMIT Hospitalist; ATTEND Student in an Organized Health Care Education/Training Program
DX: G93.41 Metabolic encephalopathy (principal); I21.A1 Myocardial infarction type 2; N17.0 Acute kidney failure with tubular necrosis; F03.90 Unspecified dementia, unspecified severity, without behavioral disturbance, psychotic disturbance, mood disturbance, and anxiety; J45.909 Unspecified asthma, uncomplicated; E11.9 Type 2 diabetes mellitus without complications; F17.200 Nicotine dependence, unspecified, uncomplicated; Z79.82 Long term (current) use of aspirin; Z79.4 Long term (current) use of insulin; Z86.73 Personal history of transient ischemic attack (TIA), and cerebral infarction without residual deficits; Z82.49 Family history of ischemic heart disease and other diseases of the circulatory system; E66.9 Obesity, unspecified; Z71.3 Dietary counseling and surveillance; Z68.31 Body mass index [BMI] 31.0-31.9, adult
CPT/HCPCS: 36415; 70450; 70544; 70551; 71045; 80048; 80053; 80061; 81001; 82962; 83735; 83880; 84484; 85025; 85027; 85610; 87040; 93005; 94640; 94760; 99285; G0378; J3490; J1644; J2270; J7030

== ENCOUNTER 2022-07-18 07:44 | Inpatient (IN) | payer SELFPAY ==
[2022-07-18] MEDS ORDERED: SODIUM CHLORIDE 0.9% 1000 ML 1,000 ML IV ONE ×2 (08:02→08:54)
--- NOTE | 2022-07-18 08:22 | Emergency Department Report ---
ED Syncope HPI - General Chief Complaint: Chest Pain Stated Complaint: Dizziness Time Seen by Provider: 07/18/22 07:48 Source: patient, EMS, old records Exam Limitations: no limitations - History of Present Illness Initial Comments: 62-year-old female with a past medical history of dementia, hypertension, diabetes, chronic renal insufficiency presents to the hospital by ambulance for lightheadedness and syncopal episode. EMS obtained collateral history from family members. She was found sleeping on the floor this morning after reporting that she slipped out of the bed. Patient complains of feeling lightheaded and had a syncopal episode in route to the hospital with a systolic pressure in the 70s. Accu-Chek reported to be 250. IV fluids initiated with improvement in blood pressure. Patient complains of this persist dizziness with shortness of breath. She denies headache, chest pain, or abdominal pain. Daughter number [phone] No previous medical record for review Penicillin and sulfa allergy reported Patient has been here in the past under a different name Sherrill Garibay Patient was admitted here in May and June for syncope/TIA/altered mental status. Most recent admission July 07 to July 11 patient had a unremarkable CT head, MRI brain and was subsequently treated for JULITA with improvement in creatinine prior to discharge. registration plans to merged charts - Related Data Allergies/Adverse Reactions: Allergies Penicillins Allergy (Unknown, Verified 07/18/22 13:25) Swelling ED Review of Systems ROS: Stated complaint: CHEST PAIN Other details as noted in HPI Comment: All other systems reviewed and negative ED Physical Exam - General Limitations: No Limitations - Other Other exam information: General: Generalized malaise Head: Atraumatic Eyes: normal appearance, pale conjunctiva ENT: Very pale tongue Neck: Normal appearance, no midline tenderness Chest: Tachypnea, clear to auscultation CV: Regular rate and rhythm Abdomen: Soft, normal bowel sounds, nontender, nondistended, no rebound or guard ing Rectal: Brown stool without gross blood or melena Back: Normal inspection Extremity: Normal inspection, full range of motion Neuro: O x 2 (states year is 2023), patient falls asleep often but easily arousable, no facial asymmetry, speech clear, generalized weakness with equal handgrip and foot dorsiflexion Psych: Appropriate behavior Skin: No rash ED Course Vital Signs 09/06/0107/18/22 07/18/22 07:49 08:00 08:48 Temperature 98.2 F Pulse Rate 80 106 H Respiratory 14 34 H Rate Blood Pressure Blood Pressure 146/89 [Left] O2 Sat by Pulse 98 95 Oximetry 07/18/22 07/18/22 07/18/22 09:00 09:15 09:30 Temperature Pulse Rate 96 H 97 H 93 H Respiratory 19 17 14 Rate Blood Pressure 76/40 91/47 87/49 Blood Pressure [Left] O2 Sat by Pulse 100 100 Oximetry 07/18/22 07/18/22 07/18/22 09:45 10:00 10:15 Temperature Pulse Rate 87 90 86 Respiratory 12 15 11 L Rate Blood Pressure 93/54 113/66 131/75 Blood Pressure [Left] O2 Sat by Pulse 100 100 100 Oximetry 07/18/22 07/18/22 07/18/22 10:30 10:45 11:00 Temperature Pulse Rate 82 85 81 Respiratory 10 L 11 L 12 Rate Blood Pressure 122/72 122/73 130/73 Blood Pressure [Left] O2 Sat by Pulse 100 100 100 Oximetry 07/18/22 07/18/22 07/18/22 11:15 11:30 11:45 Temperature Pulse Rate 84 83 85 Respiratory 11 L 15 13 Rate Blood Pressure 118/73 132/74 122/72 Blood Pressure [Left] O2 Sat by Pulse 100 100 100 Oximetry 07/18/22 07/18/22 07/18/22 12:20 12:30 12:46 Temperature Pulse Rate 97 H 85 88 Respiratory 13 18 15 Rate Blood Pressure 135/87 141/79 121/81 Blood Pressure [Left] O2 Sat by Pulse Oximetry 07/18/22 07/18/22 07/18/22 13:01 13:15 13:21 Temperature Pulse Rate 79 95 H 83 Respiratory 10 L 13 12 Rate Blood Pressure 124/73 147/78 147/78 Blood Pressure [Left] O2 Sat by Pulse 100 100 100 Oximetry 07/18/22 13:31 Temperature Pulse Rate 81 Respiratory 11 L Rate Blood Pressure 147/78 Blood Pressure [Left] O2 Sat by Pulse 100 Oximetry - Reevaluation(s) Reevaluation #1: 07/18/22 08:22 Nurse informing that patient had a heart rate of 190. Event monitor reviewed. Heart rate was not 190 and rate appeared to be secondary to the monitor counting P waves in addition to QRS complexes. - Consultations Consultation #1: 07/18/22 09:33 Dr Iverson paged at 8:20am (Secretory was told he was javascript front end developer) and ekg sent for review. He called back at 9:23a [place] and recommends that the pt receive emergent card evaluation and ekg review by in house android platform developer I discussed case with Ming Yadav (overhead page) DR Sandhu is javascript front end developer but in a case currently. EKG reviewed. He will come to the bedside to evaluate patient. Pt continues to deny active chest pain. Labs still pending 07/18/22 12:30 DR Slater vascular surgeon paged, awaiting call back. 07/18/22 13:24 DR Slater vascular surgeon in the ED 07/18/22 13:35 pt will be going to field laborer for [facility], admission upgraded to ICU ED Medical Decision Making - Lab Data Result diagrams: 07/19/22 01:08 07/19/22 03:55 Lab Results 07/18/22 07/18/22 07/18/22 Range/Units 07:59 07:59 07:59 WBC 12.7 H (4.5-11.0) K/mm3 RBC 3.05 L (3.65-5.03) M/mm3 Hgb 9.2 L (10.1-14.3) gm/dl Hct 28.0 L (30.3-42.9) % MCV 92 (79-97) fl MCH 30 (28-32) pg MCHC 33 (30-34) % RDW 14.4 (13.2-15.2) % Plt Count 256 (140-440) K/mm3 Lymph % (Auto) 17.7 (13.4-35.0) % [place] % (Auto) 4.6 (0.0-7.3) % Eos % (Auto) 0.8 (0.0-4.3) % Baso % (Auto) 0.6 (0.0-1.8) % Lymph # (Auto) 2.3 (1.2-5.4) K/mm3 [place] # (Auto) 0.6 (0.0-0.8) K/mm3 Eos # (Auto) 0.1 (0.0-0.4) K/mm3 Baso # (Auto) 0.1 (0.0-0.1) K/mm3 Seg Neutrophils % 76.3 H (40.0-70.0) % Seg Neutrophils # 9.7 H (1.8-7.7) K/mm3 PT 14.4 (12.2-14.9) Sec. INR 1.01 (0.87-1.13) APTT 28.5 (24.2-36.6) Sec. D-Dimer 95263 H (0-234) ng/mlDDU Sodium TNR Potassium TNR Chloride TNR Carbon Dioxide TNR Anion Gap TNR BUN TNR Creatinine TNR Estimated GFR TNR BUN/Creatinine Ratio TNR Glucose TNR Lactic Acid (0.7-2.0) mmol/L Calcium TNR Magnesium TNR Total Bilirubin TNR AST TNR ALT TNR Alkaline Phosphatase TNR Total Creatine Kinase TNR CK-MB (CK-2) TNR CK-MB (CK-2) Rel Index TNR Troponin T TNR NT-Pro-B Natriuret Pep TNR Total Protein TNR Albumin TNR Albumin/Globulin Ratio TNR Triglycerides TNR Cholesterol TNR LDL Cholesterol Direct TNR HDL Cholesterol TNR Cholesterol/HDL Ratio TNR Blood Type Antibody Screen 07/18/22 07/18/22 07/18/22 Range/Units 09:03 10:23 10:23 WBC (4.5-11.0) K/mm3 RBC (3.65-5.03) M/mm3 Hgb (10.1-14.3) gm/dl Hct (30.3-42.9) % MCV (79-97) fl MCH (28-32) pg MCHC (30-34) % RDW (13.2-15.2) % Plt Count (140-440) K/mm3 Lymph % (Auto) (13.4-35.0) % [place] % (Auto) (0.0-7.3) % Eos % (Auto) (0.0-4.3) % Baso % (Auto) (0.0-1.8) % Lymph # (Auto) (1.2-5.4) K/mm3 [place] # (Auto) (0.0-0.8) K/mm3 Eos # (Auto) (0.0-0.4) K/mm3 Baso # (Auto) (0.0-0.1) K/mm3 Seg Neutrophils % (40.0-70.0) % Seg Neutrophils # (1.8-7.7) K/mm3 PT (12.2-14.9) Sec. INR (0.87-1.13) APTT (24.2-36.6) Sec. D-Dimer (0-234) ng/mlDDU Sodium 140 Potassium 3.5 L Chloride 107.2 H Carbon Dioxide 25 Anion Gap 11 BUN 15 Creatinine 1.0 Estimated GFR 56 BUN/Creatinine Ratio 15 Glucose 264 H Lactic Acid 2.10 H* (0.7-2.0) mmol/L Calcium 8.6 Magnesium 1.90 Total Bilirubin 0.40 AST 226 H ALT 73 H Alkaline Phosphatase 202 H Total Creatine Kinase 90 CK-MB (CK-2) 3.8 CK-MB (CK-2) Rel Index 4.2 H Troponin T 0.199 H* NT-Pro-B Natriuret Pep 259.1 Total Protein 5.8 L Albumin 3.2 L Albumin/Globulin Ratio 1.2 Triglycerides Cholesterol LDL Cholesterol Direct HDL Cholesterol Cholesterol/HDL Ratio Blood Type O POSITIVE Antibody Screen Negative 07/18/22 Range/Units Unknown WBC (4.5-11.0) K/mm3 RBC (3.65-5.03) M/mm3 Hgb (10.1-14.3) gm/dl Hct (30.3-42.9) % MCV (79-97) fl MCH (28-32) pg MCHC (30-34) % RDW (13.2-15.2) % Plt Count (140-440) K/mm3 Lymph % (Auto) (13.4-35.0) % [place] % (Auto) (0.0-7.3) % Eos % (Auto) (0.0-4.3) % Baso % (Auto) (0.0-1.8) % Lymph # (Auto) (1.2-5.4) K/mm3 [place] # (Auto) (0.0-0.8) K/mm3 Eos # (Auto) (0.0-0.4) K/mm3 Baso # (Auto) (0.0-0.1) K/mm3 Seg Neutrophils % (40.0-70.0) % Seg Neutrophils # (1.8-7.7) K/mm3 PT (12.2-14.9) Sec. INR (0.87-1.13) APTT (24.2-36.6) Sec. D-Dimer (0-234) ng/mlDDU Sodium Potassium Chloride Carbon Dioxide Anion Gap BUN Creatinine Estimated GFR BUN/Creatinine Ratio Glucose Lactic Acid 5.10 H* (0.7-2.0) mmol/L Calcium Magnesium Total Bilirubin AST ALT Alkaline Phosphatase Total Creatine Kinase CK-MB (CK-2) CK-MB (CK-2) Rel Index Troponin T NT-Pro-B Natriuret Pep Total Protein Albumin Albumin/Globulin Ratio Triglycerides Cholesterol LDL Cholesterol Direct HDL Cholesterol Cholesterol/HDL Ratio Blood Type Antibody Screen - EKG Data -: EKG Interpreted by [place] EKG shows normal: sinus rhythm, intervals (qtc 535, 1st degree av blocked), QRS complexes (rbbb qrsd 153), ST-T waves (lateral st depressin) Rate: tachycardia - EKG Data When compared to previous EKG there are: changes noted (new RBB) - Radiology Data Radiology results: report reviewed CHEST 1 VIEW 07/18/2022 7:38 AM INDICATION / CLINICAL INFORMATION: sob/syncope. COMPARISON: None available. FINDINGS: SUPPORT DEVICES: None. HEART / MEDIASTINUM: No significant abnormality. LUNGS / PLEURA: No significant pulmonary or pleural abnormality. No pneumothorax. ADDITIONAL FINDINGS: No significant additional findings. IMPRESSION: No acute abnormality. CTA CHEST WITH CONTRAST INDICATION / CLINICAL INFORMATION: syncope. TECHNIQUE: Axial CT images were obtained through the chest after injection of 100 cc of Omnipaque 350 IV contrast. 3 plane MIP and/or 3D reconstructions were produced. All CT scans at this location are performed using CT dose reduction for ALARA by means of automated exposure control. COMPARISON: None available. FINDINGS: PULMONARY EMBOLUS: Large bilateral near occlusive pulmonary emboli are identified extending from the distal right and left lobe are pulmonary arteries to the interlobar and segmental branches of the bilateral upper lobes and bilateral lower lobes. THORACIC AORTA: No significant abnormality. HEART: Heart size is normal although the right ventricle is dilated consistent with some level of right heart strain. CORONARY ARTERY CALCIFICATION: Present -- Mild. MEDIASTINUM / MAURICIO: No significant abnormality. PLEURA: No pleural effusion. No pneumothorax. LUNGS: No acute air space or interstitial disease. No suspicious pulmonary lesion ADDITIONAL FINDINGS: None. UPPER ABDOMEN: No acute findings. SKELETAL STRUCTURES: No significant osseous abnormality. IMPRESSION: 1. Large bilateral pulmonary emboli with evidence of right heart strain as described. 2. Lungs clear. - Medical Decision Making 52-year-old female presents to the hospital with syncopal episode and hypotension. Hypotension improved with IV fluid bolus. EKG reveals a right bundle branch block with first-degree AV block and lateral ST depressions. This is new compared to previous EKG under previous MRN number. CT confirms suspicion of pulmonary emboli with signs of right heart strain. Vascular surgeon consult and Dr. Slater will take patient to [facility] lab for treatment. Heparin drip was ordered. Hospitalist DR Guy informed. lactic acidosis improving with IV hydration Critical Care Time: Yes Critical care time in (mins) excluding proc time.: 40 Critical care attestation.: If time is entered above; I have spent that time in minutes in the direct care of this critically ill patient, excluding procedure time. Critical Care Time: 40 minutes of critical care time excluding procedures were used in the care of the patient. I came immediately to the bedside upon patient's arrival. I obtained history from EMS at the bedside. I discussed treatment plan with the nursing team members. I reviewed electronic record. I spoke with family to obtain medical history. Patient required multiple interventions and reassessments. Spoke with hospitalist and consultants for collaborative care ED Disposition Clinical Impression: Syncope, Pulmonary emboli Hypotension Qualifiers: Hypotension type: unspecified hypotension type Qualified Code(s): I95.9 - Hypotension, unspecified Disposition: 09 ADMITTED INPATIENT Is pt being admited?: Yes Condition: Stable Time of Disposition: 12:59 (Dr Guy/hospitalist)
--- NOTE | 2022-07-18 08:44 | XRay Report ---
CHEST 1 VIEW 07/18/2022 7:38 AM INDICATION / CLINICAL INFORMATION: sob/syncope. COMPARISON: None available. FINDINGS: SUPPORT DEVICES: None. HEART / MEDIASTINUM: No significant abnormality. LUNGS / PLEURA: No significant pulmonary or pleural abnormality. No pneumothorax. ADDITIONAL FINDINGS: No significant additional findings. IMPRESSION: No acute abnormality. Signer Name: Davidson Fontanez MD Signed: 07/18/2022 8:39 AM Workstation Name: [email or web address]
[2022-07-18 09:47] LABS: BUN/Creatinine Ratio TNR; Blood Urea Nitrogen TNR mg/dL (7-17); Calcium TNR mg/dL (8.4-10.2)
[2022-07-18 09:48] LABS: Alanine Aminotransferase TNR units/L (7-56); Albumin TNR g/dL (3.9-5); Creatine Kinase MB TNR ng/mL (0.0-4.0)
[2022-07-18 09:49] LABS: Chol/HDL Ratio TNR %; HDL Cholesterol TNR mg/dL (40-59); Hemolysis Index 394; LDL Cholesterol,Direct TNR mg/dL (50-130)
[2022-07-18 10:06] LABS: Basophils # (Auto) 0.1 K/mm3 (0.0-0.1); Basophils % (Auto) 0.6 % (0.0-1.8); Eosinophils # (Auto) 0.1 K/mm3 (0.0-0.4); Eosinophils % (Auto) 0.8 % (0.0-4.3); Hemoglobin 9.2 gm/dl (10.1-14.3); Lymphocytes # (Auto) 2.3 K/mm3 (1.2-5.4); Lymphocytes % (Auto) 17.7 % (13.4-35.0); Mean Corpuscular HGB Conc 33 % (30-34); Mean Corpuscular Volume 92 fl (79-97); Monocytes # (Auto) 0.6 K/mm3 (0.0-0.8); Monocytes % (Auto) 4.6 % (0.0-7.3); Platelet Count 256 K/mm3 (140-440); Red Blood Count 3.05 M/mm3 (3.65-5.03); Red Cell Distribution Width 14.4 % (13.2-15.2)
[2022-07-18 10:14] LABS: INR 1.01 (0.87-1.13)
[2022-07-18 10:15] LABS: Partial Thromboplastin Time 28.5 Sec. (24.2-36.6)
[2022-07-18 11:10] LABS: Creatine Kinase MB 3.8 ng/mL (0.0-4.0)
[2022-07-18 11:12] LABS: Albumin 3.2 g/dL (3.9-5); Calcium 8.6 mg/dL (8.4-10.2)
--- NOTE | 2022-07-18 12:20 | Cat Scan Report ---
CTA CHEST WITH CONTRAST INDICATION / CLINICAL INFORMATION: syncope. TECHNIQUE: Axial CT images were obtained through the chest after injection of 100 cc of Omnipaque 350 IV contrast. 3 plane MIP and/or 3D reconstructions were produced. All CT scans at this location are performed using CT dose reduction for ALARA by means of automated exposure control. COMPARISON: None available. FINDINGS: PULMONARY EMBOLUS: Large bilateral near occlusive pulmonary emboli are identified extending from the distal right and left lobe are pulmonary arteries to the interlobar and segmental branches of the erika ateral upper lobes and bilateral lower lobes. THORACIC AORTA: No significant abnormality. HEART: Heart size is normal although the right ventricle is dilated consistent with some level of rig ht heart strain. CORONARY ARTERY CALCIFICATION: Present -- Mild. MEDIASTINUM / MAURICIO: No significant abnormality. PLEURA: No pleural effusion. No pneumothorax. LUNGS: No acute air space or interstitial disease. No suspicious pulmonary lesion ADDITIONAL FINDINGS: None. UPPER ABDOMEN: No acute findings. SKELETAL STRUCTURES: No significant osseous abnormality. IMPRESSION: 1. Large bilateral pulmonary emboli with evidence of right heart strain as described. 2. Lungs clear. CRITICAL RESULT: Time of Discovery (BUSINESS SYSTEMS ANALYST/CDT): 1113 hours Time of Communication (BUSINESS SYSTEMS ANALYST/CDT): 1116 hours Licensed Practitioner Receiving Report: Dr. Epperson Read-Back Performed: Yes. Signer Name: Maciej Laura Jr, MD Signed: 07/18/2022 12:16 PM Workstation Name: [id number]
[2022-07-18] MEDS ORDERED: HEPARIN 10,000 UNITS/10 ML VIAL IV PRN (12:56)
[2022-07-18] MEDS ORDERED: HEPARIN 10,000 UNITS/10 ML VIAL IV ONE ×2 (12:56→17:00)
[2022-07-18] MEDS ORDERED: HEPARIN/ 0.45% NACL DRIP 25,000 UNIT/500 ML BAG IV SCH (13:00)
[2022-07-18] MEDS ORDERED: ONDANSETRON 4 MG/2 ML INJ IV PRN ×2 (13:03→14:04)
[2022-07-18] MEDS ORDERED: MORPHINE 2 MG/1 ML INJ IV PRN (13:03)
[2022-07-18] MEDS ORDERED: ALTEPLASE 10 MG in SODIUM CHLORIDE 0.9% 250ML 250 ML IV STA (13:36)
[2022-07-18] MEDS ORDERED: ALTEPLASE 10 MG in SODIUM CHLORIDE 0.9% 250ML 250 ML EKOSDLUMEN STA (13:36)
[2022-07-18] MEDS ORDERED: SODIUM CHLORIDE 0.9% 1000 ML 1,000 ML EKOSCLUMEN SCH ×2 (13:45)
[2022-07-18] MEDS ORDERED: SODIUM CHLORIDE 0.9% 1000 ML 1,000 ML SHEATH SCH ×2 (13:45)
[2022-07-18] MEDS ORDERED: SODIUM CHLORIDE 0.9% 1000 ML 1,000 ML IV SCH (13:45)
[2022-07-18] MEDS ORDERED: LIDOCAINE (2%) 20 MG/1 ML VIAL 20 ML MDV INFILTRATI ONE (13:51)
[2022-07-18] MEDS ORDERED: fentaNYL 100 MCG/2 ML INJ ONE (13:52)
[2022-07-18] MEDS ORDERED: HEPARIN/ 0.45% NACL DRIP 50,000 UNIT/1,000 ML BAG ONE (13:52)
[2022-07-18] MEDS ORDERED: SODIUM CHLORIDE 0.9% 1000 ML 3,000 ML ONE (13:52)
[2022-07-18] MEDS ORDERED: MIDAZOLAM 2 MG/2 ML INJ ONE (13:52)
[2022-07-18] MEDS ORDERED: HEPARIN/NS 5000 UNIT/500ML 500 ML IR ONE ×2 (13:53→14:02)
--- NOTE | 2022-07-18 13:53 | Consultation ---
History of Present Illness - Reason for Consult Consult date: 07/18/22 Symptomatic Pulmonary Artery Embolus Requesting physician: RACHEAL ARRIAGA - History of Present Illness The patient is a 62-year-old female with a history of CVA, dementia, and diabetes. She was brought to the hospital by EMS after the family called 911. Her daughter states she and her sibling heard their mother fall and upon checking on her found her on the floor. Per the daughter the patient denied hitting her head. They placed her in the bed but noted that she became less responsive so they called 911. Upon EMS arrival the patient was found to have tachycardia and a systolic blood pressure of 70. She received 2 fluid boluses which corrected her hypotension and tachycardia. She initially complained of SOB and chest pain. Her chest pain has resolved however she continues to compl ain of SOB. She was recently hospitalized in May and June 2022 with symptoms consistent with stroke however MRI was negative during both admissions. The daughter states that she has had generalized weakness and inability to feed herself, after the June admission, however she recently began trying to increase her activity with ambulation and feeding herself. The daughter denies any history of hemoptysis, hematemesis, or hematochezia. She has no recent trauma. The patient only complains of SOB and has no additional complaints at this time. Past History Past Medical History: diabetes (with neuropathy), pulmonary embolism, stroke, other (dementia) Past Surgical History: cholecystectomy Social history: lives with family Family history: no significant family history Medications and Allergies Allergies Allergy/AdvReac Type Severity Reaction Status Date / Time Penicillins Allergy Unknown Swelling Verified 07/18/22 13:25 Active Meds: Active Medications Acetaminophen (Acetaminophen 325 Mg Tab) 650 mg PO Q4H PRN PRN Reason: Pain MILD(1-3)/Fever >100.5/BOSE Heparin Sodium (Porcine) (Heparin 10,000 Units/10 Ml Vial) 4,200 unit 40 unit/kg (4200 unit) IV Q6H PRN PRN Reason: Anti-Xa Assay < 0.1 units/ml Heparin Sodium/Sodium Chloride (Heparin/ 0.45% Nacl-25,000 Unit/500 Ml) 25,000 unit in 500 mls @ 30 mls/hr IV TITR MANFRED; Protocol Sodium Chloride (Nacl 0.9% 1000 Ml) 1,000 mls @ 30 mls/hr IV DIRECT MANFRED Alteplase, Recombinant 10 mg/ (Sodium Chloride) 250 mls @ 10 mls/hr [facility] DIRECT STA Stop: 07/19/22 14:35 Alteplase, Recombinant 10 mg/ (Sodium Chloride) 250 mls @ 10 mls/hr IV DIRECT STA Stop: 07/19/22 14:35 Sodium Chloride (Nacl 0.9% 1000 Ml) 1,000 mls @ 30 mls/hr SHEATH DIRECT MANFRED Sodium Chloride (Nacl 0.9% 1000 Ml) 1,000 mls @ 35 mls/hr EKOSCLUMEN DIRECT MANFRED Sodium Chloride (Nacl 0.9% 1000 Ml) 1,000 mls @ 30 mls/hr SHEATH DIRECT MANFRED Sodium Chloride (Nacl 0.9% 1000 Ml) 1,000 mls @ 35 mls/hr EKOSCLUMEN DIRECT MANFRED Heparin Sodium/Sodium Chloride (Heparin/ 0.45% Nacl-25,000 Unit/500 Ml) 25,000 unit in 500 mls @ 10 mls/hr SHEATH DIRECT MANFRED; Protocol Heparin Sodium/Sodium Chloride (Heparin/ 0.45% Nacl-25,000 Unit/500 Ml) 25,000 unit in 500 mls @ 10 mls/hr SHEATH DIRECT MANFRED; Protocol Morphine Sulfate (Morphine 2 Mg/1 Ml Inj) 2 mg IV Q4H PRN PRN Reason: Pain, Moderate (4-6) Ondansetron HCl (Ondansetron 4 Mg/2 Ml Inj) 4 mg IV Q8H PRN PRN Reason: Nausea And Vomiting Sodium Chloride (Sodium Chloride 0.9% 10 Ml Flush Syringe) 10 ml IV BID MANFRED Sodium Chloride (Sodium Chloride 0.9% 10 Ml Flush Syringe) 10 ml IV PRN PRN PRN Reason: LINE FLUSH Review of Systems All systems: negative Exam - Constitutional Vitals: Temp Pulse Resp BP Pulse Ox 98.2 F 95 H 13 147/78 100 07/18/22 07:49 07/18/22 13:15 07/18/22 13:15 07/18/22 13:15 07/18/22 13:15 General appearance: Present: no acute distress - Respiratory Respiratory effort: other (difficulty completing sentences) - Cardiovascular Rhythm: regular - Extremities Extremities: no ischemia, No edema - Abdominal General gastrointestinal: Present: soft, non-tender Female genitourinary: Present: deferred - Rectal Rectal Exam: deferred - Psychiatric Psychiatric: no memory intact, cooperative Results - Labs CBC & Chem 7: 07/18/22 07:59 07/18/22 10:23 Labs: Abnormal lab results 07/18/22 07/18/22 07/18/22 Range/Units 07:59 07:59 10:23 WBC 12.7 H (4.5-11.0) K/mm3 RBC 3.05 L (3.65-5.03) M/mm3 Hgb 9.2 L (10.1-14.3) gm/dl Hct 28.0 L (30.3-42.9) % Seg Neutrophils % 76.3 H (40.0-70.0) % Seg Neutrophils # 9.7 H (1.8-7.7) K/mm3 D-Dimer 80965 H (0-234) ng/mlDDU Potassium 3.5 L (3.6-5.0) mmol/L Chloride 107.2 H (98-107) mmol/L Glucose 264 H (65-100) mg/dL Lactic Acid (0.7-2.0) mmol/L AST 226 H (5-40) units/L ALT 73 H (7-56) units/L Alkaline Phosphatase 202 H (35-129) units/L CK-MB (CK-2) Rel Index 4.2 H (0-4) Troponin T 0.199 H* (0.00-0.029) ng/mL Total Protein 5.8 L (6.3-8.2) g/dL Albumin 3.2 L (3.9-5) g/dL 07/18/22 07/18/22 07/18/22 Range/Units 10:23 12:27 Unknown WBC (4.5-11.0) K/mm3 RBC (3.65-5.03) M/mm3 Hgb (10.1-14.3) gm/dl Hct (30.3-42.9) % Seg Neutrophils % (40.0-70.0) % Seg Neutrophils # (1.8-7.7) K/mm3 D-Dimer (0-234) ng/mlDDU Potassium (3.6-5.0) mmol/L Chloride (98-107) mmol/L Glucose (65-100) mg/dL Lactic Acid 2.10 H* 2.70 H* 5.10 H* (0.7-2.0) mmol/L AST (5-40) units/L ALT (7-56) units/L Alkaline Phosphatase (35-129) units/L CK-MB (CK-2) Rel Index (0-4) Troponin T (0.00-0.029) ng/mL Total Protein (6.3-8.2) g/dL Albumin (3.9-5) g/dL - Imaging and Cardiology CT scan - chest: image reviewed Assessment and Plan The patient is a 62-year-old female who was found to have bilateral pulmonary emboli involving bilateral pulmonary arteries and segmental branches. She has enlargement of her right ventricle with an elevated troponin. She was initially hypotensive with tachycardia however that resolved with fluid boluses. She meets the criteria for pulmonary artery thrombolysis and does not have any contr aindications for the procedure. I discussed the findings as well as the planned procedure with her daughter, Tye Weiner, including the risk, benefits, and alternative procedure. The daughter expressed understanding and agrees to proceed. The consent was obtained from the daughter secondary to the patient's history of dementia.
[2022-07-18] MEDS ORDERED: HEPARIN/ 0.45% NACL DRIP 25,000 UNIT/500 ML BAG SHEATH SCH ×2 (14:00)
[2022-07-18] MEDS ORDERED: MORPHINE 4 MG/1 ML INJ IV PRN (14:04)
[2022-07-18] MEDS ORDERED: WATER FOR INJ Sterile (PF) 20 ML ONE (14:15)
[2022-07-18] MEDS ORDERED: ALTEPLASE 2 MG INJ ONE (14:15)
[2022-07-18] MEDS ORDERED: HEPARIN 10,000 UNITS/10 ML VIAL ONE (14:36)
--- NOTE | 2022-07-18 14:51 | Consultation ---
History of Present Illness Consult date: 07/18/22 Requesting physician: RACHEAL ARRIAGA Consult reason: syncope, other (abnormal EKG) History of present illness: Patient is a 62-year-old female with a past medical history of CVA, dementia and diabetes who was brought to the ED for lightheadedness and syncopal episode today. History is taken from chart due to patient's mental status at time of exam. Per documentation and patient's family called EMS after they heard patient fall and found patient lying on the floor. Patient denies hitting head. Upon arrival of EMS patient was found to be tachycardic and with an SBP 70. Patient received 2 fluid boluses which improved patient's blood pressure and tachycardia. In the ED patient denied any complaints and reported just that she was dizzy earlier however patient was able to provide any other history. In the ED patient was found to have bilateral PEs and found to have abnormal EKG. Of note patient is noted to have 2 MRN's in the EMR and the patient was previously here for. Cardiology is consulted for syncope and EKG. Patient is previously unknown to our practice. Past History Past Medical History: diabetes (with neuropathy), pulmonary embolism, stroke, other (dementia) Past Surgical History: cholecystectomy Social history: lives with family Family history: no significant family history Medications and Allergies Allergies Allergy/AdvReac Type Severity Reaction Status Date / Time Penicillins Allergy Unknown Swelling Verified 07/18/22 13:25 Active Meds: Active Medications Acetaminophen (Acetaminophen 325 Mg Tab) 650 mg PO Q4H PRN PRN Reason: Pain MILD(1-3)/Fever >100.5/BOSE Heparin Sodium (Porcine) (Heparin 10,000 Units/10 Ml Vial) 4,200 unit 40 unit/kg (4200 unit) IV Q6H PRN PRN Reason: Anti-Xa Assay < 0.1 units/ml Heparin Sodium/Sodium Chloride (Heparin/ 0.45% Nacl-25,000 Unit/500 Ml) 25,000 unit in 500 mls @ 30 mls/hr IV TITR MANFRED; Protocol Sodium Chloride (Nacl 0.9% 1000 Ml) 1,000 mls @ 30 mls/hr IV DIRECT MANFRED Alteplase, Recombinant 10 mg/ (Sodium Chloride) 250 mls @ 10 mls/hr EKOSDLUMEN DIRECT STA Stop: 07/19/22 14:35 Alteplase, Recombinant 10 mg/ (Sodium Chloride) 250 mls @ 10 mls/hr IV DIRECT STA Stop: 07/19/22 14:35 Sodium Chloride (Nacl 0.9% 1000 Ml) 1,000 mls @ 30 mls/hr SHEATH DIRECT MANFRED Sodium Chloride (Nacl 0.9% 1000 Ml) 1,000 mls @ 35 mls/hr EKOSCLUMEN DIRECT MANFRED Sodium Chloride (Nacl 0.9% 1000 Ml) 1,000 mls @ 30 mls/hr SHEATH DIRECT MANFRED Sodium Chloride (Nacl 0.9% 1000 Ml) 1,000 mls @ 35 mls/hr EKOSCLUMEN DIRECT MANFRED Heparin Sodium/Sodium Chloride (Heparin/ 0.45% Nacl-25,000 Unit/500 Ml) 25,000 unit in 500 mls @ 10 mls/hr SHEATH DIRECT MANFRED; Protocol Heparin Sodium/Sodium Chloride (Heparin/ 0.45% Nacl-25,000 Unit/500 Ml) 25,000 unit in 500 mls @ 10 mls/hr SHEATH DIRECT MANFRED; Protocol Morphine Sulfate (Morphine 2 Mg/1 Ml Inj) 2 mg IV Q4H PRN PRN Reason: Pain, Moderate (4-6) Morphine Sulfate (Morphine 4 Mg/1 Ml Inj) 4 mg IV Q4H PRN PRN Reason: Pain , Severe (7-10) Ondansetron HCl (Ondansetron 4 Mg/2 Ml Inj) 4 mg IV Q8H PRN PRN Reason: Nausea And Vomiting Sodium Chloride (Sodium Chloride 0.9% 10 Ml Flush Syringe) 10 ml IV BID MANFRED Sodium Chloride (Sodium Chloride 0.9% 10 Ml Flush Syringe) 10 ml IV PRN PRN PRN Reason: LINE FLUSH Review of Systems Constitutional: no chills, no sweats Ears, nose, mouth and throat: no sinus pressure, no sinus pain Cardiovascular: syncope, no chest pain, no orthopnea, no shortness of breath, no dyspnea on exertion Respiratory: no shortness of breath, no dyspnea on exertion Gastrointestinal: no abdominal pain, no nausea, no vomiting Musculoskeletal: no neck stiffness, no neck pain Integumentary: no rash, no pruritis, no redness Neurological: syncope Psychiatric: no anxiety, no memory loss Physical Examination Vital Signs Temp Pulse Resp BP Pulse Ox 98.2 F 80 14 146/89 98 07/18/22 07:49 07/18/22 07:49 07/18/22 07:49 07/18/22 07:49 07/18/22 07:49 General appearance: other (AMS) HEENT: Positive: PERRL Neck: Positive: trachea midline Cardiac: Positive: Reg Rate and Rhythm Lungs: Positive: Normal Breath Sounds Neuro: Positive: Grossly Intact Abdomen: Positive: Soft Skin: Negative: Rash, Suspicious Lesions, Ulceration Extremities: Present: upper extr. pulses. Absent: edema Results 07/18/22 07:59 07/18/22 10:23 Cardiac Enzymes 07/18/22 07/18/22 Range/Units 07:59 10:23 AST TNR 226 H CK-MB (CK-2) TNR 3.8 Coagulation 07/18/22 Range/Units 07:59 PT 14.4 (12.2-14.9) Sec. INR 1.01 (0.87-1.13) APTT 28.5 (24.2-36.6) Sec. Lipids 07/18/22 Range/Units 07:59 Triglycerides TNR Cholesterol TNR HDL Cholesterol TNR Cholesterol/HDL Ratio TNR CBC 07/18/22 Range/Units 07:59 WBC 12.7 H (4.5-11.0) K/mm3 RBC 3.05 L (3.65-5.03) M/mm3 Hgb 9.2 L (10.1-14.3) gm/dl Hct 28.0 L (30.3-42.9) % Plt Count 256 (140-440) K/mm3 Lymph # (Auto) 2.3 (1.2-5.4) K/mm3 [place] # (Auto) 0.6 (0.0-0.8) K/mm3 Eos # (Auto) 0.1 (0.0-0.4) K/mm3 Baso # (Auto) 0.1 (0.0-0.1) K/mm3 Comprehensive Metabolic Panel 07/18/22 07/18/22 Range/Units 07:59 10:23 Sodium TNR 140 Potassium TNR 3.5 L Chloride TNR 107.2 H Carbon Dioxide TNR 25 BUN TNR 15 Creatinine TNR 1.0 Glucose TNR 264 H Calcium TNR 8.6 AST TNR 226 H ALT TNR 73 H Alkaline Phosphatase TNR 202 H Total Protein TNR 5.8 L Albumin TNR 3.2 L - Imaging and Cardiology Echo: report reviewed EKG interpretations - Telemetry EKG Rhythm: Sinus Rhythm - EKG Sinus rhythms and dysrhythmias: sinus rhythm AV and intraventricular conduction: right bundle branch block Assessment and Plan Patient is a 62-year-old female with a past medical history of CVA, dementia and diabetes who was brought to the ED for lightheadedness and syncopal episode t zena and found to have bilateral PE Syncope Bilateral PE-vascular following NSTEMI suspect type II Diabetes Dementia History of CVA Anemia Echo 05/20/2022-60 to 65% borderline concentric LVH. Mild aortic regurgitation. Trace mitral regurgitation. Trace to mild tricuspid regurgitation. Borderline pulmonary hypertension. Saline bubble study did not demonstrate PFO Plan: EKG shows sinus tach with RBBB no acute ischemic changes. Patient denies any complaints of chest pain. Troponins elevated x1. Repeat troponin Troponins noted to be elevated however suspect NSTEMI type II in setting of large bilateral PE Will defer to vascular recommendations Due to patient mental status and large bilateral PEs recommend conservative cardiac management Will continue to follow Patient seen in conjunction with Dr. Sandhu who agrees this plan of care - Patient Problems (1) Anemia Current Visit: Yes Status: Acute (2) Dementia Current Visit: Yes Status: Acute (3) Hypotension Current Visit: Yes Status: Acute (4) Syncope Current Visit: Yes Status: Acute (5) Pulmonary emboli Current Visit: Yes Status: Acute
--- NOTE | 2022-07-18 14:59 | Operative Report ---
Operative Report Operative Report: Date of Procedure: 07/18/2022 Pre-operative Diagnosis: Symptomatic Bilateral Pulmonary Emboli Post-operative Diagnosis: Same Procedure(s): 1. Ultrasound-Guided Access Right Common Femoral Vein 2. Ultrasound-Guided Access Right Common Femoral Vein 3. Diagnostic Nonselective Pulmonary Artery Angiogram 4. Diagnostic Left Pulmonary Artery Angiogram 5. Diagnostic Right Pulmonary Artery Angiogram 6. Thrombolysis of Right Pulmonary Artery with 106 x 12 cm EKOS Thrombolysis Catheter 7. Thrombolysis of Left Pulmonary Artery with 106 x 12 cm EKOS Thrombolysis Catheter 8. Radiologic Supervision with Interpretation 9. Monitored Moderate Sedation (Total Anesthesia Time: 27 Minutes) Surgeon: Meir Slater M.D. Spice Blender: None Anesthesia: Local/Monitored Moderate Sedation Total Anesthesia Time: 27 Minutes EBL: Minimal Counts: Correct Complications: None Condition: Stable Specimen: None Indication: The patient is a 62-year-old female who presented with complaints of chest pain or shortness of breath after a questionable syncopal episode witnessed by her family. Upon initial presentation she was found to be hypotensive with a systolic blood pressure of 70 and tachycardic up to 190. Her work-up revealed an elevated troponin and D-dimer and she was eventually found to have bilateral pulmonary emboli with evidence of right heart strain on CT. Her vitals stabilized with fluid boluses and she had no contraindications to thrombolysis. Her daughter was given the risk, benefits, and alternative procedures and consented to the procedure. Angiographic Findings: The diagnostic nonselective pulmonary artery angiogram revealed thrombus within the proximal left pulmonary artery. There was near occlusive thrombus within the right distal pulmonary artery. Selective left pulmonary artery angiogram revealed thrombus in the segmental branches with near occlusion of the left lower segmental branches. Selective right pulmonary artery angiogram revealed nonocclusive thrombus within the segmental branches. The left pulmonary artery EKOS catheter was placed with the proximal tip in the proximal left pulmonary artery and the distal tip in the left lower lobe artery. The right EKOS thrombolysis catheter was placed with the proximal tip in the proximal right pulmonary artery and the distal tip in the distal right middle lobe artery. Description of Procedure: The patient was brought to the [facility] and laid in supine position. After timeout was performed bilateral groins were prepped and draped in normal sterile fashion. Ultrasound was used to identify the right common femoral vein and confirm patency. Once patency was confirmed the overlying skin and soft tissue was anesthetized with lidocaine. An 11 blade was used to make 2 small stab incisions, in the right groin, and a 21-gauge micropuncture needle was used to access the right common femoral vein using ultrasound guidance. An additional 21-gauge micropuncture needle was used to access the right common femoral vein, more proximal, using ultrasound guidance. I then advanced a 0.018 micropuncture wire through each needle and after removing the needles placed micropuncture sheath by Seldinger technique. The dilators and wires were removed and a 0.035 Bentson wires were advanced through each micropuncture sheath. Each micropuncture sheath was then exchanged for 6 [place] 11 cm sheath by Seldinger technique. A JR4 catheter was advanced over the Bentson wire and the more distal sheath. The catheter and wire were then advanced to the right atrium and ventricle and into the main pulmonary artery trunk. An angiogram was then performed the previously described findings. I reinserted the wire and advanced it into the right middle lobe and performed an angiogram to confirm position. I reinserted the wire and then remove the JR4 catheter. A 106 x 12 cm EKOS thrombolysis catheter was then advanced over the wire and into the right pulmonary artery. The wire was removed and the ultrasound wire was advanced into the EKOS catheter. I then advanced the JR4 catheter over the remaining Bentson wire and advanced this through the right atrium and ventricle and into the left main pulmonary artery. An angiogram was then performed the previously described findings. I advanced the wire back into the left lower lobe artery and after removing the catheter placed a 106 x 12 cm EKOS thrombolysis catheter by Seldinger technique. The wire was removed and the ultrasound wire was inserted. Both drug ports were then injected with 4 mg of tPA respectively. Both coolant ports were injected with 2000 units of heparin respectively. Both sheaths were then primed with a total of 3000 units of heparin in each respective sheath. The sheaths and catheters were then secured in position with 0 silk suture in interrupted fashion. Once the catheters were secured in position there were dressed with sterile dressings and the patient was transported to the ICU in critical but stable condition.
[2022-07-18 17:41] LABS: INR 1.13 (0.87-1.13)
[2022-07-18 17:42] LABS: Fibrinogen 328 mg/dl (211-480)
[2022-07-18 18:23] LABS: Partial Thromboplastin Time > 240.0 Sec. (24.2-36.6)
[2022-07-18 19:49] LABS: Basophils % (Auto) 0.2 % (0.0-1.8); Eosinophils # (Auto) 0.1 K/mm3 (0.0-0.4); Eosinophils % (Auto) 0.6 % (0.0-4.3); Hematocrit 24.6 % (30.3-42.9); Hemoglobin 8.2 gm/dl (10.1-14.3); Lymphocytes # (Auto) 2.6 K/mm3 (1.2-5.4); Mean Corpuscular HGB Conc 33 % (30-34); Mean Corpuscular Volume 93 fl (79-97); Monocytes # (Auto) 1.1 K/mm3 (0.0-0.8); Monocytes % (Auto) 9.3 % (0.0-7.3); Platelet Count 248 K/mm3 (140-440); Red Blood Count 2.66 M/mm3 (3.65-5.03); Red Cell Distribution Width 14.5 % (13.2-15.2)
[2022-07-18 19:59] LABS: Fibrinogen 321 mg/dl (211-480)
[2022-07-19 01:17] LABS: Basophils % (Auto) 0.4 % (0.0-1.8); Eosinophils # (Auto) 0.1 K/mm3 (0.0-0.4); Eosinophils % (Auto) 1.3 % (0.0-4.3); Hematocrit 23.5 % (30.3-42.9); Hemoglobin 7.9 gm/dl (10.1-14.3); Lymphocytes % (Auto) 31.6 % (13.4-35.0); Mean Corpuscular HGB Conc 34 % (30-34); Mean Corpuscular Volume 92 fl (79-97); Monocytes % (Auto) 10.2 % (0.0-7.3); Platelet Count 239 K/mm3 (140-440); Red Blood Count 2.57 M/mm3 (3.65-5.03); Red Cell Distribution Width 14.3 % (13.2-15.2)
[2022-07-19 04:57] LABS: BUN/Creatinine Ratio 16; Blood Urea Nitrogen 13 mg/dL (7-17); Calcium 7.8 mg/dL (8.4-10.2); Hemolysis Index 18
--- NOTE | 2022-07-19 07:24 | History and Physical Report ---
History of Present Illness Date of examination: 07/19/22 Date of admission: 07/18/22 13:03 Chief complaint: Lightheadedness and syncopal episode History of present illness: 62-year-old female with a past medical history of dementia, hypertension, diabetes, chronic renal insufficiency presents to the hospital by ambulance for lightheadedness and syncopal episode. EMS obtained collateral history from family members. She was found sleeping on the floor this morning after reporting that she slipped out of the bed. Patient complains of feeling lightheaded and had a syncopal episode in route to the hospital with a systolic pressure in the 70s. Accu-Chek reported to be 250. IV fluids initiated with improvement in blood pressure. Patient complains of this persist dizziness with shortness of breath. She denies headache, chest pain, or abdominal pain. Daughter number [phone] No previous medical record for review Penicillin and sulfa allergy reported Patient has been here in the past under a different name Sherrill Garibay Patient was admitted here in May and June for syncope/TIA/altered mental status. Most recent admission July 07 to July 11 patient had a unremarkable CT head, MRI brain and was subsequently treated for JULITA with improvement in creatinine prior to discharge. registration plans to merged charts Past History Past Medical History: diabetes (with neuropathy), pulmonary embolism, stroke, other (dementia) Past Surgical History: cholecystectomy Social history: lives with family Family history: no significant family history Medications and Allergies Allergies Allergy/AdvReac Type Severity Reaction Status Date / Time Penicillins Allergy Unknown Swelling Verified 07/18/22 13:25 Active Meds: Active Medications Acetaminophen (Acetaminophen 325 Mg Tab) 650 mg PO Q4H PRN PRN Reason: Pain MILD(1-3)/Fever >100.5/BOSE Sodium Chloride (Nacl 0.9% 1000 Ml) 1,000 mls @ 30 mls/hr IV DIRECT MANFRED Alteplase, Recombinant 10 mg/ (Sodium Chloride) 250 mls @ 10 mls/hr EKOSDLUMEN DIRECT STA Stop: 07/19/22 14:35 Alteplase, Recombinant 10 mg/ (Sodium Chloride) 250 mls @ 10 mls/hr IV DIRECT STA Stop: 07/19/22 14:35 Sodium Chloride (Nacl 0.9% 1000 Ml) 1,000 mls @ 30 mls/hr SHEATH DIRECT MANFRED Sodium Chloride (Nacl 0.9% 1000 Ml) 1,000 mls @ 35 mls/hr EKOSCLUMEN DIRECT MANFRED Sodium Chloride (Nacl 0.9% 1000 Ml) 1,000 mls @ 30 mls/hr SHEATH DIRECT MANFRED Sodium Chloride (Nacl 0.9% 1000 Ml) 1,000 mls @ 35 mls/hr EKOSCLUMEN DIRECT MANFRED Heparin Sodium/Sodium Chloride (Heparin/ 0.45% Nacl-25,000 Unit/500 Ml) 25,000 unit in 500 mls @ 10 mls/hr SHEATH DIRECT MANFRED; Protocol Heparin Sodium/Sodium Chloride (Heparin/ 0.45% Nacl-25,000 Unit/500 Ml) 25,000 unit in 500 mls @ 10 mls/hr SHEATH DIRECT MANFRED; Protocol Morphine Sulfate (Morphine 2 Mg/1 Ml Inj) 2 mg IV Q4H PRN PRN Reason: Pain, Moderate (4-6) Morphine Sulfate (Morphine 4 Mg/1 Ml Inj) 4 mg IV Q4H PRN PRN Reason: Pain , Severe (7-10) Ondansetron HCl (Ondansetron 4 Mg/2 Ml Inj) 4 mg IV Q8H PRN PRN Reason: Nausea And Vomiting Sodium Chloride (Sodium Chloride 0.9% 10 Ml Flush Syringe) 10 ml IV BID MANFRED Last Admin: 07/18/22 21:54 Dose: 10 ml Sodium Chloride (Sodium Chloride 0.9% 10 Ml Flush Syringe) 10 ml IV PRN PRN PRN Reason: LINE FLUSH Review of Systems All systems: negative Cardiovascular: chest pain, syncope Respiratory: shortness of breath, dyspnea on exertion Exam - Constitutional Vitals: Temp Pulse Resp BP Pulse Ox 97.8 F 72 12 104/58 100 07/19/22 04:00 07/19/22 06:00 07/19/22 06:00 07/19/22 06:00 07/19/22 06:00 General appearance: Present: mild distress, well-nourished - EENT Eyes: Present: PERRL ENT: hearing intact, clear oral mucosa - Neck Neck: Present: supple, normal ROM - Respiratory Respiratory effort: normal Respiratory: bilateral: CTA - Cardiovascular Heart rate: 99 Rhythm: regular Heart Sounds: Present: S1 & S2. Absent: rub, click - Extremities Extremities: no ischemia, pulses intact, pulses symmetrical, No edema Peripheral Pulses: within normal limits - Abdominal General gastrointestinal: Present: soft, non-tender, non-distended, normal bowel sounds Female genitourinary: Present: normal - Integumentary Integumentary: Present: clear, warm, dry - Musculoskeletal Musculoskeletal: gait normal, strength equal bilaterally - Psychiatric Psychiatric: appropriate mood/affect, intact judgment & insight - Neurologic Neurologic: CNII-XII intact, moves all extremities - Allied Health Allied health notes reviewed: nursing, case management HEART Score - HEART Score Age: 45-65 Risk factors: 1-2 risk factors Troponin: Troponin T 0.269 ng/mL (0.00-0.029) H* D 07/18/22 13:01 - Critical Actions Critical Actions: 0-3 pts:0.9-1.7%risk of adverse cardiac event.Candidate for discharge Results - Labs CBC & Chem 7: 07/19/22 01:08 07/19/22 03:55 Labs: Laboratory Last Values WBC 9.5 K/mm3 (4.5-11.0) 07/19/22 01:08 RBC 2.57 M/mm3 (3.65-5.03) L 07/19/22 01:08 Hgb 7.9 gm/dl (10.1-14.3) L 07/19/22 01:08 Hct 23.5 % (30.3-42.9) L 07/19/22 01:08 MCV 92 fl (79-97) 07/19/22 01:08 MCH 31 pg (28-32) 07/19/22 01:08 MCHC 34 % (30-34) 07/19/22 01:08 RDW 14.3 % (13.2-15.2) 07/19/22 01:08 Plt Count 239 K/mm3 (140-440) 07/19/22 01:08 Lymph % (Auto) 31.6 % (13.4-35.0) 07/19/22 01:08 Hendricks % (Auto) 10.2 % (0.0-7.3) H 07/19/22 01:08 Eos % (Auto) 1.3 % (0.0-4.3) 07/19/22 01:08 Baso % (Auto) 0.4 % (0.0-1.8) 07/19/22 01:08 Lymph # (Auto) 3.0 K/mm3 (1.2-5.4) 07/19/22 01:08 [place]ricks # (Auto) 1.0 K/mm3 (0.0-0.8) H 07/19/22 01:08 Eos # (Auto) 0.1 K/mm3 (0.0-0.4) 07/19/22 01:08 Baso # (Auto) 0.0 K/mm3 (0.0-0.1) 07/19/22 01:08 Seg Neutrophils % 56.5 % (40.0-70.0) 07/19/22 01:08 Seg Neutrophils # 5.4 K/mm3 (1.8-7.7) 07/19/22 01:08 PT 15.8 Sec. (12.2-14.9) H 07/18/22 13:54 INR 1.13 (0.87-1.13) 07/18/22 13:54 APTT > 240.0 Sec. (24.2-36.6) H* 07/18/22 13:54 Fibrinogen 272 mg/dl (211-480) 07/19/22 Unknown D-Dimer 10023 ng/mlDDU (0-234) H 07/18/22 07:59 Heparin Anti-Xa Level 0.89 U.I./ml (0.3-0.7) H 07/19/22 Unknown Sodium 141 mmol/L (137-145) 07/19/22 03:55 Potassium 3.3 mmol/L (3.6-5.0) L 07/19/22 03:55 Chloride 110.4 mmol/L (98-107) H 07/19/22 03:55 Carbon Dioxide 24 mmol/L (22-30) 07/19/22 03:55 Anion Gap 10 mmol/L 07/19/22 03:55 BUN 13 mg/dL (7-17) 07/19/22 03:55 Creatinine 0.8 mg/dL (0.6-1.2) 07/19/22 03:55 Estimated GFR > 60 ml/min 07/19/22 03:55 BUN/Creatinine Ratio 16 % 07/19/22 03:55 Glucose 124 mg/dL (65-100) H 07/19/22 03:55 POC Glucose 120 mg/dL (70-105) H 07/19/22 00:55 Lactic Acid 5.10 mmol/L (0.7-2.0) H* 07/18/22 Unknown Calcium 7.8 mg/dL (8.4-10.2) L 07/19/22 03:55 Magnesium 1.90 mg/dL (1.7-2.3) 07/18/22 10:23 Total Bilirubin 0.40 mg/dL (0.1-1.2) 07/18/22 10:23 AST 226 units/L (5-40) H 07/18/22 10:23 ALT 73 units/L (7-56) H 07/18/22 10:23 Alkaline Phosphatase 202 units/L (35-129) H 07/18/22 10:23 Total Creatine Kinase 90 units/L (30-135) 07/18/22 10:23 CK-MB (CK-2) 3.8 ng/mL (0.0-4.0) 07/18/22 10:23 CK-MB (CK-2) Rel Index 4.2 (0-4) H 07/18/22 10:23 Troponin T 0.269 ng/mL (0.00-0.029) H* D 07/18/22 13:01 NT-Pro-B Natriuret Pep 259.1 pg/mL (0-900) 07/18/22 10:23 Total Protein 5.8 g/dL (6.3-8.2) L 07/18/22 10:23 Albumin 3.2 g/dL (3.9-5) L 07/18/22 10:23 Albumin/Globulin Ratio 1.2 % 07/18/22 10:23 Triglycerides TNR 07/18/22 07:59 Cholesterol TNR 07/18/22 07:59 LDL Cholesterol Direct TNR 07/18/22 07:59 HDL Cholesterol TNR 07/18/22 07:59 Cholesterol/HDL Ratio TNR 07/18/22 07:59 Blood Type O POSITIVE 07/18/22 09:03 Antibody Screen Negative 07/18/22 09:03 Short CBC 07/18/22 07/18/22 07/19/22 Range/Units 07:59 19:18 01:08 WBC 12.7 H 11.6 H 9.5 (4.5-11.0) K/mm3 Hgb 9.2 L 8.2 L 7.9 L (10.1-14.3) gm/dl Hct 28.0 L 24.6 L 23.5 L (30.3-42.9) % Plt Count 256 248 239 (140-440) K/mm3 [facility] 07/18/22 07/18/22 07/19/22 07:59 10:23 03:55 Sodium TNR 140 141 Potassium TNR 3.5 L 3.3 L Chloride TNR 107.2 H 110.4 H Carbon Dioxide TNR 25 24 BUN TNR 15 13 Creatinine TNR 1.0 0.8 Glucose TNR 264 H 124 H Calcium TNR 8.6 7.8 L Cardiac Enzymes 07/18/22 07/18/22 07/18/22 Range/Units 07:59 10:23 13:01 Total Creatine Kinase TNR 90 CK-MB (CK-2) TNR 3.8 Troponin T TNR 0.199 H* 0.269 H* D Liver Function 07/18/22 07/18/22 Range/Units 07:59 10:23 Total Bilirubin TNR 0.40 AST TNR 226 H ALT TNR 73 H Alkaline Phosphatase TNR 202 H Albumin TNR 3.2 L Short CBC 07/18/22 07/18/22 07/19/22 Range/Units 07:59 19:18 01:08 WBC 12.7 H 11.6 H 9.5 (4.5-11.0) K/mm3 Hgb 9.2 L 8.2 L 7.9 L (10.1-14.3) gm/dl Hct 28.0 L 24.6 L 23.5 L (30.3-42.9) % Plt Count 256 248 239 (140-440) K/mm3 [facility] 07/18/22 07/18/22 07/19/22 07:59 10:23 03:55 Sodium TNR 140 141 Potassium TNR 3.5 L 3.3 L Chloride TNR 107.2 H 110.4 H Carbon Dioxide TNR 25 24 BUN TNR 15 13 Creatinine TNR 1.0 0.8 Glucose TNR 264 H 124 H Calcium TNR 8.6 7.8 L Cardiac Enzymes 07/18/22 07/18/22 07/18/22 Range/Units 07:59 10:23 13:01 Total Creatine Kinase TNR 90 CK-MB (CK-2) TNR 3.8 Troponin T TNR 0.199 H* 0.269 H* D Liver Function 07/18/22 07/18/22 Range/Units 07:59 10:23 Total Bilirubin TNR 0.40 AST TNR 226 H ALT TNR 73 H Alkaline Phosphatase TNR 202 H Albumin TNR 3.2 L Microbiology: Microbiology 07/18/22 09:18 Peripheral/Venous Blood Culture - Preliminary Culture in Progress 07/18/22 09:18 Peripheral/Venous Blood Culture - Preliminary Culture in Progress 07/18/22 08:06 Stool Stool Occult Blood (ARACELY) - Final - Imaging and Cardiology Chest x-ray: report reviewed CT scan - chest: report reviewed Imaging and Cardiology: Chest CTA Large bilateral pulmonary emboli with evidence of right heart strain Lungs clear Chest x-ray No acute findings Assessment and Plan Assessment and plan: Critical care statement The high probability OF a clinically significant sudden or life-threatening deterioration of the cardiorespiratory system and endocrine system required my full and direct attention, intervention and postoperative management. The aggregate the high probability OF a clinically significant sudden or life- threatening deterioration of the cardiorespiratory system and endocrine system required my full and direct attention, intervention and postoperative manag ement. The aggregate critical care time was 40 minutes. The time is in addition to time spent performing reported procedures but includes the followin: Data review and interpretation 2: Patient assessment and monitoring of vital signs 3: Documentation 4:: Medication orders and management time was 40 minutes. The time is in addition to time spent performing reported procedures but includes the followin: Data review and interpretation 2: Patient assessment and monitoring of vital signs 3: Documentation 4:: Medication orders and management Advance Directives: Yes (Full code) VTE prophylaxis?: Chemical Plan of care discussed with patient/family: Yes - Patient Problems (1) Acute pulmonary embolism Current Visit: Yes Status: Acute Qualifiers: Acute cor pulmonale presence: with acute cor pulmonale Plan to address problem: Because of the right ventricular strain patient was taken to [facility] for EKOS placement IV heparin through the EKOS sheath was initiated Vascular surgery consult and procedure appreciated Monitor PTT and Xa levels (2) Hypotension Current Visit: Yes Status: Acute Qualifiers: Hypotension type: unspecified hypotension type Qualified Code(s): I95.9 - Hypotension, unspecified Plan to address problem: IV fluids for now Pressors if necessary (3) Hypokalemia Current Visit: Yes Status: Acute Plan to address problem: Supplement and (4) Lactic acidosis Current Visit: Yes Status: Acute Plan to address problem: No signs of infection Secondary to acute PE (5) Elevated troponin Current Visit: Yes Status: Acute Plan to address problem: Secondary to acute PE (6) Transaminitis Current Visit: Yes Status: Acute Plan to address problem: Hepatitis profile requested Possible hepatic congestion (7) Malnutrition Current Visit: Yes Status: Chronic Qualifiers: Malnutrition type: protein-calorie malnutrition Protein-calorie malnutrition severity: moderate Qualified Code(s): E44.0 - Moderate protein- calorie malnutrition Plan to address problem: Dietary supplements prescribed (8) DVT prophylaxis Current Visit: Yes Status: Acute Plan to address problem: Patient is on heparin drip and GI prophylaxis (9) Advance care planning Current Visit: Yes Status: Acute Plan to address problem: Disease education conducted, care plan discussed, diagnosis and prognosis discussed. Patient acknowledges understanding with care plan. +30 minutes.
[2022-07-19] MEDS ORDERED: POTASSIUM CHLORIDE ER 20 MEQ TAB PO SCH (09:00)
--- NOTE | 2022-07-19 09:10 | Progress Note ---
Assessment and Plan Patient doing well following EKOS thrombolytics catheter placement and bilateral pulmonary arteries. The catheters will be pulled. Patient will need to be transitioned to oral anticoagulation for at least 6 months. Would recommend Theresa. Subjective Date of service: 07/19/22 Principal diagnosis: Pulmonary embolism Interval history: Patient status post EKOS placement catheter in bilateral pulmonary arteries yesterday. At time of examination, tPA is infusing. I the patient is resting comfortably. No shortness of breath with lengthy conversations. No chest pain. Objective - Constitutional Vitals: Vital Signs - 12hr 07/18/22 07/18/22 07/18/22 21:31 22:00 22:31 Temperature Pulse Rate 94 H 81 80 Respiratory 16 12 12 Rate Blood Pressure 119/58 109/58 109/58 O2 Sat by Pulse 100 100 100 Oximetry 07/18/22 07/18/22 07/18/22 23:00 23:10 23:30 Temperature Pulse Rate 79 79 78 Respiratory 12 13 Rate Blood Pressure 105/63 105/63 O2 Sat by Pulse 100 100 Oximetry 07/18/22 07/19/22 07/19/22 23:33 00:00 01:00 Temperature 97.7 F Pulse Rate 82 79 Respiratory 11 L 14 Rate Blood Pressure 129/69 112/59 O2 Sat by Pulse 100 100 Oximetry 07/19/22 07/19/22 07/19/22 02:00 03:00 04:00 Temperature 97.8 F Pulse Rate 75 77 80 Respiratory 12 12 13 Rate Blood Pressure 112/59 126/59 110/63 O2 Sat by Pulse 100 100 100 Oximetry 07/19/22 07/19/22 07/19/22 05:00 06:00 07:00 Temperature Pulse Rate 77 72 77 Respiratory 12 12 12 Rate Blood Pressure 109/60 104/58 102/60 O2 Sat by Pulse 100 100 100 Oximetry 07/19/22 07/19/22 08:00 09:00 Temperature Pulse Rate 76 74 Respiratory 13 13 Rate Blood Pressure 105/62 111/60 O2 Sat by Pulse 100 Oximetry General appearance: Present: no acute distress, obese - EENT Eyes: EOM intact ENT: hearing intact - Neck Neck: normal ROM - Respiratory Respiratory effort: normal - Gastrointestinal General gastrointestinal: Present: deferred Rectal Exam: deferred - Genitourinary Female genitourinary: deferred - Psychiatric Psychiatric: cooperative - Labs CBC & Chem 7: 07/19/22 01:08 07/19/22 03:55 Labs: Abnormal lab results 07/18/22 07/18/22 07/18/22 Range/Units 07:59 07:59 10:23 WBC 12.7 H (4.5-11.0) K/mm3 RBC 3.05 L (3.65-5.03) M/mm3 Hgb 9.2 L (10.1-14.3) gm/dl Hct 28.0 L (30.3-42.9) % [facility] % (Auto) (0.0-7.3) % [facility] # (Auto) (0.0-0.8) K/mm3 Seg Neutrophils % 76.3 H (40.0-70.0) % Seg Neutrophils # 9.7 H (1.8-7.7) K/mm3 PT (12.2-14.9) Sec. APTT (24.2-36.6) Sec. D-Dimer 69836 H (0-234) ng/mlDDU Heparin Anti-Xa Level (0.3-0.7) U.I./ml Potassium 3.5 L (3.6-5.0) mmol/L Chloride 107.2 H (98-107) mmol/L Glucose 264 H (65-100) mg/dL POC Glucose (70-105) mg/dL Lactic Acid (0.7-2.0) mmol/L Calcium (8.4-10.2) mg/dL AST 226 H (5-40) units/L ALT 73 H (7-56) units/L Alkaline Phosphatase 202 H (35-129) units/L CK-MB (CK-2) Rel Index 4.2 H (0-4) Troponin T 0.199 H* (0.00-0.029) ng/mL Total Protein 5.8 L (6.3-8.2) g/dL Albumin 3.2 L (3.9-5) g/dL 07/18/22 07/18/22 07/18/22 Range/Units 10:23 12:27 13:01 WBC (4.5-11.0) K/mm3 RBC (3.65-5.03) M/mm3 Hgb (10.1-14.3) gm/dl Hct (30.3-42.9) % [facility] % (Auto) (0.0-7.3) % [facility] # (Auto) (0.0-0.8) K/mm3 Seg Neutrophils % (40.0-70.0) % Seg Neutrophils # (1.8-7.7) K/mm3 PT (12.2-14.9) Sec. APTT (24.2-36.6) Sec. D-Dimer (0-234) ng/mlDDU Heparin Anti-Xa Level (0.3-0.7) U.I./ml Potassium (3.6-5.0) mmol/L Chloride (98-107) mmol/L Glucose (65-100) mg/dL POC Glucose (70-105) mg/dL Lactic Acid 2.10 H* 2.70 H* (0.7-2.0) mmol/L Calcium (8.4-10.2) mg/dL AST (5-40) units/L ALT (7-56) units/L Alkaline Phosphatase (35-129) units/L CK-MB (CK-2) Rel Index (0-4) Troponin T 0.269 H* D (0.00-0.029) ng/mL Total Protein (6.3-8.2) g/dL Albumin (3.9-5) g/dL 07/18/22 07/18/22 07/18/22 Range/Units 13:54 19:18 19:18 WBC 11.6 H (4.5-11.0) K/mm3 RBC 2.66 L (3.65-5.03) M/mm3 Hgb 8.2 L (10.1-14.3) gm/dl Hct 24.6 L (30.3-42.9) % [facility] % (Auto) 9.3 H (0.0-7.3) % [facility] # (Auto) 1.1 H (0.0-0.8) K/mm3 Seg Neutrophils % (40.0-70.0) % Seg Neutrophils # 7.9 H (1.8-7.7) K/mm3 PT 15.8 H (12.2-14.9) Sec. APTT > 240.0 H* (24.2-36.6) Sec. D-Dimer (0-234) ng/mlDDU Heparin Anti-Xa Level > 2.00 H (0.3-0.7) U.I./ml Potassium (3.6-5.0) mmol/L Chloride (98-107) mmol/L Glucose (65-100) mg/dL POC Glucose (70-105) mg/dL Lactic Acid (0.7-2.0) mmol/L Calcium (8.4-10.2) mg/dL AST (5-40) units/L ALT (7-56) units/L Alkaline Phosphatase (35-129) units/L CK-MB (CK-2) Rel Index (0-4) Troponin T (0.00-0.029) ng/mL Total Protein (6.3-8.2) g/dL Albumin (3.9-5) g/dL 07/18/22 07/18/22 07/19/22 Range/Units 22:26 Unknown 00:55 WBC (4.5-11.0) K/mm3 RBC (3.65-5.03) M/mm3 Hgb (10.1-14.3) gm/dl Hct (30.3-42.9) % [facility] % (Auto) (0.0-7.3) % [facility] # (Auto) (0.0-0.8) K/mm3 Seg Neutrophils % (40.0-70.0) % Seg Neutrophils # (1.8-7.7) K/mm3 PT (12.2-14.9) Sec. APTT (24.2-36.6) Sec. D-Dimer (0-234) ng/mlDDU Heparin Anti-Xa Level > 2.00 H 0.84 H (0.3-0.7) U.I./ml Potassium (3.6-5.0) mmol/L Chloride (98-107) mmol/L Glucose (65-100) mg/dL POC Glucose (70-105) mg/dL Lactic Acid 5.10 H* (0.7-2.0) mmol/L Calcium (8.4-10.2) mg/dL AST (5-40) units/L ALT (7-56) units/L Alkaline Phosphatase (35-129) units/L CK-MB (CK-2) Rel Index (0-4) Troponin T (0.00-0.029) ng/mL Total Protein (6.3-8.2) g/dL Albumin (3.9-5) g/dL 07/19/22 07/19/22 07/19/22 Range/Units 00:55 01:08 03:55 WBC (4.5-11.0) K/mm3 RBC 2.57 L (3.65-5.03) M/mm3 Hgb 7.9 L (10.1-14.3) gm/dl Hct 23.5 L (30.3-42.9) % [facility] % (Auto) 10.2 H (0.0-7.3) % [facility] # (Auto) 1.0 H (0.0-0.8) K/mm3 Seg Neutrophils % (40.0-70.0) % Seg Neutrophils # (1.8-7.7) K/mm3 PT (12.2-14.9) Sec. APTT (24.2-36.6) Sec. D-Dimer (0-234) ng/mlDDU Heparin Anti-Xa Level (0.3-0.7) U.I./ml Potassium 3.3 L (3.6-5.0) mmol/L Chloride 110.4 H (98-107) mmol/L Glucose 124 H (65-100) mg/dL POC Glucose 120 H (70-105) mg/dL Lactic Acid (0.7-2.0) mmol/L Calcium 7.8 L (8.4-10.2) mg/dL AST (5-40) units/L ALT (7-56) units/L Alkaline Phosphatase (35-129) units/L CK-MB (CK-2) Rel Index (0-4) Troponin T (0.00-0.029) ng/mL Total Protein (6.3-8.2) g/dL Albumin (3.9-5) g/dL 07/19/22 Range/Units Unknown WBC (4.5-11.0) K/mm3 RBC (3.65-5.03) M/mm3 Hgb (10.1-14.3) gm/dl Hct (30.3-42.9) % [facility] % (Auto) (0.0-7.3) % [facility] # (Auto) (0.0-0.8) K/mm3 Seg Neutrophils % (40.0-70.0) % Seg Neutrophils # (1.8-7.7) K/mm3 PT (12.2-14.9) Sec. APTT (24.2-36.6) Sec. D-Dimer (0-234) ng/mlDDU Heparin Anti-Xa Level 0.89 H (0.3-0.7) U.I./ml Potassium (3.6-5.0) mmol/L Chloride (98-107) mmol/L Glucose (65-100) mg/dL POC Glucose (70-105) mg/dL Lactic Acid (0.7-2.0) mmol/L Calcium (8.4-10.2) mg/dL AST (5-40) units/L ALT (7-56) units/L Alkaline Phosphatase (35-129) units/L CK-MB (CK-2) Rel Index (0-4) Troponin T (0.00-0.029) ng/mL Total Protein (6.3-8.2) g/dL Albumin (3.9-5) g/dL Medications & Allergies - Medications Allergies/Adverse Reactions: Allergies Penicillins Allergy (Unknown, Verified 07/18/22 13:25) Swelling Active Medications: Generic Name Dose Route Start Last Admin Trade Name Freq PRN Reason Stop Dose Admin Acetaminophen 650 mg 07/18/22 13:03 Acetaminophen 325 Mg Tab PO Q4H PRN Pain MILD(1-3)/Fever >100.5/BOSE Sodium Chloride 1,000 mls @ 30 mls/hr 07/18/22 13:45 Nacl 0.9% 1000 Ml IV DIRECT MANFRED Alteplase, Recombinant 10 mg/ 250 mls @ 10 mls/hr 07/18/22 13:36 Sodium Chloride EKOSDLUMEN 07/19/22 14:35 DIRECT STA Alteplase, Recombinant 10 mg/ 250 mls @ 10 mls/hr 07/18/22 13:36 Sodium Chloride IV 07/19/22 14:35 DIRECT STA Sodium Chloride 1,000 mls @ 30 mls/hr 07/18/22 13:45 Nacl 0.9% 1000 Ml SHEATH DIRECT MANFRED Sodium Chloride 1,000 mls @ 35 mls/hr 07/18/22 13:45 Nacl 0.9% 1000 Ml EKOSCLUMEN DIRECT MANFRED Sodium Chloride 1,000 mls @ 30 mls/hr 07/18/22 13:45 Nacl 0.9% 1000 Ml SHEATH DIRECT MANFRED Sodium Chloride 1,000 mls @ 35 mls/hr 07/18/22 13:45 Nacl 0.9% 1000 Ml EKOSCLUMEN DIRECT MANFRED Heparin Sodium/Sodium Chloride 25,000 unit in 500 mls @ 10 mls/hr 07/18/22 14:00 Heparin/ 0.45% Nacl-25,000 Unit/500 Ml SHEATH DIRECT MANFRED Protocol 500 UNITS/HR Heparin Sodium/Sodium Chloride 25,000 unit in 500 mls @ 10 mls/hr 07/18/22 14:00 Heparin/ 0.45% Nacl-25,000 Unit/500 Ml SHEATH DIRECT MANFRED Protocol 500 UNITS/HR Morphine Sulfate 2 mg 07/18/22 13:03 Morphine 2 Mg/1 Ml Inj IV Q4H PRN Pain, Moderate (4-6) Morphine Sulfate 4 mg 07/18/22 14:04 Morphine 4 Mg/1 Ml Inj IV Q4H PRN Pain , Severe (7-10) Ondansetron HCl 4 mg 07/18/22 14:04 Ondansetron 4 Mg/2 Ml Inj IV Q8H PRN Nausea And Vomiting Potassium Chloride 40 meq 07/19/22 09:00 Potassium Chloride Er 20 Meq Tab PO 07/19/22 13:00 ONCE@0900 MANFRED Sodium Chloride 10 ml 07/18/22 22:00 07/18/22 21:54 Sodium Chloride 0.9% 10 Ml Flush Syringe IV 10 ml BID MANFRED Administration Sodium Chloride 10 ml 07/18/22 13:03 Sodium Chloride 0.9% 10 Ml Flush Syringe IV PRN PRN LINE FLUSH HEART Score - HEART Score Age: 45-65 Risk factors: 1-2 risk factors Troponin: Troponin T 0.269 ng/mL (0.00-0.029) H* D 07/18/22 13:01 - Critical Actions Critical Actions: 0-3 pts:0.9-1.7%risk of adverse cardiac event.Candidate for discharge
[2022-07-19 09:33] LABS: Basophils % (Auto) 0.5 % (0.0-1.8); Eosinophils # (Auto) 0.1 K/mm3 (0.0-0.4); Eosinophils % (Auto) 1.7 % (0.0-4.3); Hematocrit 21.9 % (30.3-42.9); Hemoglobin 7.3 gm/dl (10.1-14.3); Lymphocytes # (Auto) 2.3 K/mm3 (1.2-5.4); Lymphocytes % (Auto) 28.1 % (13.4-35.0); Mean Corpuscular HGB Conc 33 % (30-34); Mean Corpuscular Volume 93 fl (79-97); Monocytes # (Auto) 0.7 K/mm3 (0.0-0.8); Monocytes % (Auto) 8.9 % (0.0-7.3); Platelet Count 232 K/mm3 (140-440); Red Blood Count 2.37 M/mm3 (3.65-5.03); Red Cell Distribution Width 14.4 % (13.2-15.2)
--- NOTE | 2022-07-19 10:32 | Electrocardiograph Report ---
[facility] Test Date: 2022-07-18 Test Time: 07:55:53 Pat Name: JERE JORDAN Department: Room: A252 1 Gender: F Information Clerk: 0000 : 1960 Requested By: RACHEAL ARRIAGA Order Number: [id number] Reading MD: Calixto Sandhu Measurements Intervals [place] Rate: 113 P: [place]: QRS: 19 QRSD: 153 T: 47 QT: 390 QTc: [address] Right bundle branch block Inferior infarct, old No previous ECG available for comparison Electronically Signed On 07-19-2022 10:32:22 EDT by Calixto Sandhu
--- NOTE | 2022-07-19 10:53 | Consultation ---
History of Present Illness Consult date: 07/19/22 Requesting physician: BOZENA JENSEN Reason for consult: pulmonary embolism History of present illness: 62 y/o female with bilateral PE admitted to ICU post EKOS therapy. Past History Past Medical History: diabetes (with neuropathy), pulmonary embolism, stroke, other (dementia) Past Surgical History: cholecystectomy Social history: lives with family Family history: no significant family history Medications and Allergies Allergies Allergy/AdvReac Type Severity Reaction Status Date / Time Penicillins Allergy Unknown Swelling Verified 07/18/22 13:25 Active Meds: Active Medications Acetaminophen (Acetaminophen 325 Mg Tab) 650 mg PO Q4H PRN PRN Reason: Pain MILD(1-3)/Fever >100.5/BOSE Sodium Chloride (Nacl 0.9% 1000 Ml) 1,000 mls @ 30 mls/hr IV DIRECT MANFRED Alteplase, Recombinant 10 mg/ (Sodium Chloride) 250 mls @ 10 mls/hr EKOSDLUMEN DIRECT STA Stop: 07/19/22 14:35 Alteplase, Recombinant 10 mg/ (Sodium Chloride) 250 mls @ 10 mls/hr IV DIRECT STA Stop: 07/19/22 14:35 Sodium Chloride (Nacl 0.9% 1000 Ml) 1,000 mls @ 30 mls/hr SHEATH DIRECT MANFRED Sodium Chloride (Nacl 0.9% 1000 Ml) 1,000 mls @ 35 mls/hr EKOSCLUMEN DIRECT MANFRED Sodium Chloride (Nacl 0.9% 1000 Ml) 1,000 mls @ 30 mls/hr SHEATH DIRECT MANFRED Sodium Chloride (Nacl 0.9% 1000 Ml) 1,000 mls @ 35 mls/hr EKOSCLUMEN DIRECT MANFRED Heparin Sodium/Sodium Chloride (Heparin/ 0.45% Nacl-25,000 Unit/500 Ml) 25,000 unit in 500 mls @ 10 mls/hr SHEATH DIRECT MANFRED; Protocol Heparin Sodium/Sodium Chloride (Heparin/ 0.45% Nacl-25,000 Unit/500 Ml) 25,000 unit in 500 mls @ 10 mls/hr SHEATH DIRECT MANFRED; Protocol Morphine Sulfate (Morphine 2 Mg/1 Ml Inj) 2 mg IV Q4H PRN PRN Reason: Pain, Moderate (4-6) Morphine Sulfate (Morphine 4 Mg/1 Ml Inj) 4 mg IV Q4H PRN PRN Reason: Pain , Severe (7-10) Ondansetron HCl (Ondansetron 4 Mg/2 Ml Inj) 4 mg IV Q8H PRN PRN Reason: Nausea And Vomiting Potassium Chloride (Potassium Chloride Er 20 Meq Tab) 40 meq PO ONCE@0900 [facility] Stop: 07/19/22 13:00 Last Admin: 07/19/22 09:41 Dose: 40 meq Sodium Chloride (Sodium Chloride 0.9% 10 Ml Flush Syringe) 10 ml IV BID [facility] Last Admin: 07/18/22 21:54 Dose: 10 ml Sodium Chloride (Sodium Chloride 0.9% 10 Ml Flush Syringe) 10 ml IV PRN PRN PRN Reason: LINE FLUSH Review of Systems All systems: negative Physical Examination Vital signs: Vital Signs Temp Pulse Resp BP Pulse Ox 98.2 F 80 14 146/89 98 07/18/22 07:49 07/18/22 07:49 07/18/22 07:49 07/18/22 07:49 07/18/22 07:49 General appearance: no acute distress Eyes: non-icteric ENT: oropharynx moist Neck: supple Effort: normal Ascultation: Bilateral: diminished breath sounds Results - Laboratory Findings CBC and BMP: 07/19/22 09:13 07/19/22 03:55 PT/INR, D-dimer PT 15.8 Sec. (12.2-14.9) H 07/18/22 13:54 INR 1.13 (0.87-1.13) 07/18/22 13:54 D-Dimer 34400 ng/mlDDU (0-234) H 07/18/22 07:59 Abnormal lab findings: Abnormal Labs 07/18/22 07/18/22 07/18/22 07:59 07:59 10:23 WBC 12.7 H RBC 3.05 L Hgb 9.2 L Hct 28.0 L Bureau % (Auto) Bureau # (Auto) Seg Neutrophils % 76.3 H Seg Neutrophils # 9.7 H PT APTT D-Dimer 39911 H Heparin Anti-Xa Level Potassium 3.5 L Chloride 107.2 H Glucose 264 H POC Glucose Lactic Acid Calcium AST 226 H ALT 73 H Alkaline Phosphatase 202 H CK-MB (CK-2) Rel Index 4.2 H Troponin T 0.199 H* Total Protein 5.8 L Albumin 3.2 L 07/18/22 07/18/22 07/18/22 10:23 12:27 13:01 WBC RBC Hgb Hct Bureau % (Auto) Bureau # (Auto) Seg Neutrophils % Seg Neutrophils # PT APTT D-Dimer Heparin Anti-Xa Level Potassium Chloride Glucose POC Glucose Lactic Acid 2.10 H* 2.70 H* Calcium AST ALT Alkaline Phosphatase CK-MB (CK-2) Rel Index Troponin T 0.269 H* D Total Protein Albumin 07/18/22 07/18/22 07/18/22 13:54 19:18 19:18 WBC 11.6 H RBC 2.66 L Hgb 8.2 L Hct 24.6 L Bureau % (Auto) 9.3 H Bureau # (Auto) 1.1 H Seg Neutrophils % Seg Neutrophils # 7.9 H PT 15.8 H APTT > 240.0 H* D-Dimer Heparin Anti-Xa Level > 2.00 H Potassium Chloride Glucose POC Glucose Lactic Acid Calcium AST ALT Alkaline Phosphatase CK-MB (CK-2) Rel Index Troponin T Total Protein Albumin 07/18/22 07/18/22 07/19/22 22:26 Unknown 00:55 WBC RBC Hgb Hct Bureau % (Auto) Bureau # (Auto) Seg Neutrophils % Seg Neutrophils # PT APTT D-Dimer Heparin Anti-Xa Level > 2.00 H 0.84 H Potassium Chloride Glucose POC Glucose Lactic Acid 5.10 H* Calcium AST ALT Alkaline Phosphatase CK-MB (CK-2) Rel Index Troponin T Total Protein Albumin 07/19/22 07/19/22 07/19/22 00:55 01:08 03:55 WBC RBC 2.57 L Hgb 7.9 L Hct 23.5 L Bureau % (Auto) 10.2 H Bureau # (Auto) 1.0 H Seg Neutrophils % Seg Neutrophils # PT APTT D-Dimer Heparin Anti-Xa Level Potassium 3.3 L Chloride 110.4 H Glucose 124 H POC Glucose 120 H Lactic Acid Calcium 7.8 L AST ALT Alkaline Phosphatase CK-MB (CK-2) Rel Index Troponin T Total Protein Albumin 07/19/22 07/19/22 09:13 Unknown WBC RBC 2.37 L Hgb 7.3 L Hct 21.9 L Bureau % (Auto) 8.9 H Bureau # (Auto) Seg Neutrophils % Seg Neutrophils # PT APTT D-Dimer Heparin Anti-Xa Level 0.89 H Potassium Chloride Glucose POC Glucose Lactic Acid Calcium AST ALT Alkaline Phosphatase CK-MB (CK-2) Rel Index Troponin T Total Protein Albumin - Diagnostic Findings CT scan - chest: report reviewed, image reviewed Assessment and Plan 62 y/o bilateral pulmonary emboli 1. S/p ekos. tolerated well. 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 If stable should be able to transfer to floor later today. 2. Oral anticoagulation 3. Hypercoag work up as outpatient 4. Need to merge her charts.
--- NOTE | 2022-07-19 12:53 | Progress Note ---
Assessment and Plan Patient is a 62-year-old female with a past medical history of CVA, dementia and diabetes who was brought to the ED for lightheadedness and syncopal episode today and found to have bilateral PE Syncope Bilateral PE-vascular following NSTEMI suspect type II Diabetes Dementia History of CVA Anemia Echo 05/20/2022-60 to 65% borderline concentric LVH. Mild aortic regurgitation. Trace mitral regurgitation. Trace to mild tricuspid regurgitation. Borderline pulmonary hypertension. Saline bubble study did not demonstrate PFO Plan: EKG shows sinus tach with RBBB no acute ischemic changes. Patient denies any complaints of chest pain. Troponins noted to be elevated however suspect NSTEMI type II in setting of large bilateral PE Will defer to vascular recommendations in regards to anticoagulation Due to patient mental status and large bilateral PEs recommend conservative cardiac management Repeat echo pending to evaluate EF following bilateral PEs Will continue to follow Patient seen in conjunction with Dr. Sandhu who agrees this plan of care 30 minutes of critical care time spent in care coordination of patient - Patient Problems (1) Anemia Current Visit: Yes Status: Acute (2) Dementia Current Visit: Yes Status: Acute (3) Hypotension Current Visit: Yes Status: Acute Qualifiers: Hypotension type: unspecified hypotension type Qualified Code(s): I95.9 - Hypotension, unspecified (4) Syncope Current Visit: Yes Status: Acute (5) Pulmonary emboli Current Visit: Yes Status: Acute Subjective Date of service: 07/19/22 Principal diagnosis: Pulmonary embolism Interval history: Patient resting in bed in patient s/p EKOS Sinus 70s 80s on monitor with no event Objective Vital Signs Temp Pulse Resp BP Pulse Ox 07/19/22 11:00 71 10 L 114/58 100 07/19/22 10:00 72 11 L 114/58 100 07/19/22 09:00 74 13 111/60 07/19/22 08:15 100 07/19/22 08:00 98 F 82 13 105/62 100 07/19/22 07:00 77 12 102/60 100 07/19/22 06:00 72 12 104/58 100 07/19/22 05:00 77 12 109/60 100 07/19/22 04:00 97.8 F 80 13 110/63 100 07/19/22 03:00 77 12 126/59 100 07/19/22 02:00 75 12 112/59 100 07/19/22 01:00 79 14 112/59 100 07/19/22 00:00 82 11 L 129/69 100 07/18/22 23:33 97.7 F 07/18/22 23:30 78 13 105/63 100 07/18/22 23:10 79 07/18/22 23:00 79 12 105/63 100 07/18/22 22:31 80 12 109/58 100 07/18/22 22:00 81 12 109/58 100 07/18/22 21:31 94 H 16 119/58 100 07/18/22 21:00 81 12 119/58 100 07/18/22 20:30 82 11 L 115/67 100 07/18/22 20:00 97.9 F 86 12 115/67 100 07/18/22 19:31 88 11 L 121/70 100 07/18/22 19:11 89 11 L 121/70 100 07/18/22 19:00 90 12 121/70 100 07/18/22 18:51 87 11 L 116/70 100 07/18/22 18:41 94 H 13 116/70 100 07/18/22 18:31 89 11 L 116/70 100 07/18/22 18:21 96 H 12 116/70 100 07/18/22 18:11 88 10 L 116/70 100 07/18/22 18:01 94 H 14 116/70 96 07/18/22 17:51 89 12 100/73 100 07/18/22 17:41 88 12 100/73 100 07/18/22 17:31 92 H 15 100/73 100 07/18/22 17:21 92 H 17 100/73 100 07/18/22 17:11 89 10 L 100/73 100 07/18/22 17:01 91 H 13 83/71 100 07/18/22 16:51 76 9 L 100/73 100 07/18/22 16:41 82 10 L 100/73 100 07/18/22 16:30 77 11 L 100/73 100 07/18/22 16:21 79 10 L 138/74 100 07/18/22 16:11 78 8 L 138/74 100 07/18/22 16:00 97.8 F 78 10 L 138/74 100 07/18/22 15:51 73 8 L 154/81 100 07/18/22 15:41 83 11 L 154/81 100 07/18/22 15:35 07/18/22 15:30 80 9 L 145/79 07/18/22 15:20 81 9 L 154/81 07/18/22 15:10 109 H 34 H 68/41 07/18/22 15:01 116 H 36 H 154/121 07/18/22 14:54 15 147/78 07/18/22 13:31 81 11 L 147/78 07/18/22 13:21 83 12 147/78 07/18/22 13:15 95 H 13 147/78 07/18/22 13:01 79 10 L 124/73 100 - Physical Examination General: No Apparent Distress HEENT: Positive: PERRL Neck: Positive: trachea midline Cardiac: Positive: Reg Rate and Rhythm Lungs: Positive: Normal Breath Sounds Neuro: Positive: Grossly Intact Abdomen: Positive: Soft Skin: Negative: Rash, Suspicious Lesions, Ulceration Extremities: Present: upper extr. pulses. Absent: edema - Labs and Meds Coagulation 07/18/22 Range/Units 13:54 PT 15.8 H (12.2-14.9) Sec. INR 1.13 (0.87-1.13) APTT > 240.0 H* (24.2-36.6) Sec. CBC 07/18/22 07/19/22 07/19/22 Range/Units 19:18 01:08 09:13 WBC 11.6 H 9.5 8.3 (4.5-11.0) K/mm3 RBC 2.66 L 2.57 L 2.37 L (3.65-5.03) M/mm3 Hgb 8.2 L 7.9 L 7.3 L (10.1-14.3) gm/dl Hct 24.6 L 23.5 L 21.9 L (30.3-42.9) % Plt Count 248 239 232 (140-440) K/mm3 Lymph # (Auto) 2.6 3.0 2.3 (1.2-5.4) K/mm3 [place] # (Auto) 1.1 H 1.0 H 0.7 (0.0-0.8) K/mm3 Eos # (Auto) 0.1 0.1 0.1 (0.0-0.4) K/mm3 Baso # (Auto) 0.0 0.0 0.0 (0.0-0.1) K/mm3 Comprehensive Metabolic Panel 07/19/22 Range/Units 03:55 Sodium 141 (137-145) mmol/L Potassium 3.3 L (3.6-5.0) mmol/L Chloride 110.4 H (98-107) mmol/L Carbon Dioxide 24 (22-30) mmol/L BUN 13 (7-17) mg/dL Creatinine 0.8 (0.6-1.2) mg/dL Glucose 124 H (65-100) mg/dL Calcium 7.8 L (8.4-10.2) mg/dL - Imaging and Cardiology Echo: pending, report reviewed - Telemetry EKG Rhythm: Sinus Rhythm - EKG Sinus rhythms and dysrhythmias: sinus rhythm AV and intraventricular conduction: right bundle branch block
[2022-07-19 17:17] LABS: Hematocrit 22.4 % (30.3-42.9); Hemoglobin 7.6 gm/dl (10.1-14.3); Mean Corpuscular HGB Conc 34 % (30-34); Mean Corpuscular Volume 92 fl (79-97); Platelet Count 256 K/mm3 (140-440); Red Blood Count 2.45 M/mm3 (3.65-5.03); Red Cell Distribution Width 14.5 % (13.2-15.2)
[2022-07-19 17:29] LABS: INR 1.03 (0.87-1.13); Partial Thromboplastin Time 21.7 Sec. (24.2-36.6)
[2022-07-19] MEDS ORDERED: DEXTROSE 50% IN WATER (25GM) 50 ML SYRINGE IV PRN (18:25)
--- NOTE | 2022-07-19 18:38 | Progress Note ---
Assessment and Plan Assessment and plan: This is a 62-year-old female with CVA, dementia, DM admitted with bilateral near occlusive pulmonary embolism s/p EKOS Neuro: H/O CVA, dementia -Reorientation as needed -Maintain sleep-wake cycle -As needed analgesia -Continue supportive care Cardiac: Syncope, NSTEMI suspected type II -Cardiology consulted, appreciate recommendations -Blood pressure monitoring per protocol -05/2022 echocardiogram shows 60 to 75% EF, borderline pulmonary hypertension, no PFO -Repeat echocardiogram pending Respiratory: Acute hypoxic respiratory failure -Presented with complaints of shortness of breath -CCM consulted, appreciate recommendations -Currently on nasal cannula -Supplemental oxygen as needed -SPO2 monitor per protocol -Pulmonary hygiene GI: Obesity, mild protein calorie malnutrition -Dietary supplementation -CC diet -PPI : Hypokalemia -Monitor intake and output -Renally dose medications -Avoid nephrotoxic medications -Repeat potassium and magnesium -Trend BMP ID: NAD -Monitor WBC and temperature curve Endo: H/O DM -CC diet -Avoid hypoglycemia -SSI -Accu-Cheks q. ACH S Heme: Large Bilateral pulmonary embolism -CTA chest showed large bilateral pulmonary emboli with evidence of right heart strain -Vascular surgery, cardiology consulted, appreciate recommendations -S/p EKOS thrombolysis -S/p heparin drip -Eliquis -Trend CBC -Transfuse hemoglobin less than 7 -SCDs to BLE while in bed -Recommend outpatient hematology work-up The high probability of a clinically significant, sudden or life threatening deterioration of the [pulm] system(s) required my full and direct attention, intervention and personal management. The aggregate critical care time was [60] minutes. This time is in addition to time spent performing reported procedures but includes the following: [x] Data Review and interpretation [x] Patient assessment and monitoring of vital signs [x] Documentation [x] Medication orders and management Disposition Plan: Transfer to [facility] Total Time Spent with Patient (Minutes): 60 History Interval history: This is a 62-year-old female with CVA, dementia, DM who presented to the emergency department on 07/18 via EMS after being reported to have it hard to fall by family and upon checking on the patient she was found to be on the floor and was placed back in bed when she became less responsive. Upon EMS arrival patient was found to have tachycardia and systolic blood pressure of 70 and received 2 fluid boluses which corrected her hypotension and tachycardia and she initially complained of shortness of breath and chest pain. Chest pain resolved however as she continued to complain of shortness of breath. Of note patient was recently hospitalized in May and June 2022 with symptoms consistent with stroke however MRI was negative on both admissions. EMS also reported a blood glucose of 250. In the emergency department patient was found to have hypokalemia, anemia, acute pulmonary embolism with evidence of right ventricular strain on CT, lactic acidosis, elevated troponins and transaminitis. Patient was admitted to the hospitalist service with consults to cardiology and vascular surgery and received thrombolysis of her bilateral pulmonary emboli. Post EKOS patient was transferred to ICU. Hospital course to date: 07/19: Patient had her EKOS catheter removed, patient was started on Eliquis. Patient was hypokalemic this morning which was repleted. Patient will be transferred to [facility]. Hospitalist Physical - Constitutional Vitals: Temp Pulse Resp BP Pulse Ox 98.3 F 85 18 123/57 100 07/19/22 16:00 07/19/22 17:01 07/19/22 17:01 07/19/22 17:01 07/19/22 17:01 General appearance: Present: no acute distress, obese - EENT Eyes: Present: PERRL, EOM intact ENT: hearing intact, clear oral mucosa - Neck Neck: Present: normal ROM - Respiratory Respiratory effort: normal Respiratory: bilateral: CTA, diminished - Cardiovascular Rhythm: regular Heart Sounds: Present: S1 & S2. Absent: systolic murmur, diastolic murmur - Extremities Extremities: no ischemia, pulses intact, pulses symmetrical, No edema, normal temperature, normal color, Full ROM Peripheral Pulses: within normal limits - Abdominal General gastrointestinal: soft, non-tender, non-distended, normal bowel sounds - Integumentary Integumentary: Present: warm, dry - Psychiatric Psychiatric: cooperative - Neurologic Neurologic: CNII-XII intact, no focal deficits, moves all extremities - Allied Health Allied health notes reviewed: nursing, RT, social work HEART Score - HEART Score Age: 45-65 Risk factors: 1-2 risk factors Troponin: Troponin T 0.269 ng/mL (0.00-0.029) H* D 07/18/22 13:01 - Critical Actions Critical Actions: 0-3 pts:0.9-1.7%risk of adverse cardiac event.Candidate for discharge Results - Labs CBC & Chem 7: 07/19/22 16:42 07/19/22 16:42 Labs: Laboratory Last Values WBC 9.3 K/mm3 (4.5-11.0) 07/19/22 16:42 RBC 2.45 M/mm3 (3.65-5.03) L 07/19/22 16:42 Hgb 7.6 gm/dl (10.1-14.3) L 07/19/22 16:42 Hct 22.4 % (30.3-42.9) L 07/19/22 16:42 MCV 92 fl (79-97) 07/19/22 16:42 MCH 31 pg (28-32) 07/19/22 16:42 MCHC 34 % (30-34) 07/19/22 16:42 RDW 14.5 % (13.2-15.2) 07/19/22 16:42 Plt Count 256 K/mm3 (140-440) 07/19/22 16:42 Lymph % (Auto) 28.1 % (13.4-35.0) 07/19/22 09:13 [place] % (Auto) 8.9 % (0.0-7.3) H 07/19/22 09:13 Eos % (Auto) 1.7 % (0.0-4.3) 07/19/22 09:13 Baso % (Auto) 0.5 % (0.0-1.8) 07/19/22 09:13 Lymph # (Auto) 2.3 K/mm3 (1.2-5.4) 07/19/22 09:13 [place] # (Auto) 0.7 K/mm3 (0.0-0.8) 07/19/22 09:13 Eos # (Auto) 0.1 K/mm3 (0.0-0.4) 07/19/22 09:13 Baso # (Auto) 0.0 K/mm3 (0.0-0.1) 07/19/22 09:13 Seg Neutrophils % 60.8 % (40.0-70.0) 07/19/22 09:13 Seg Neutrophils # 5.0 K/mm3 (1.8-7.7) 07/19/22 09:13 PT 14.6 Sec. (12.2-14.9) 07/19/22 16:42 INR 1.03 (0.87-1.13) 07/19/22 16:42 APTT 21.7 Sec. (24.2-36.6) L 07/19/22 16:42 Fibrinogen 272 mg/dl (211-480) 07/19/22 Unknown D-Dimer 06051 ng/mlDDU (0-234) H 07/18/22 07:59 Heparin Anti-Xa Level 0.89 U.I./ml (0.3-0.7) H 07/19/22 Unknown Sodium 141 mmol/L (137-145) 07/19/22 03:55 Potassium 3.3 mmol/L (3.6-5.0) L 07/19/22 03:55 Chloride 110.4 mmol/L (98-107) H 07/19/22 03:55 Carbon Dioxide 24 mmol/L (22-30) 07/19/22 03:55 Anion Gap 10 mmol/L 07/19/22 03:55 BUN 13 mg/dL (7-17) 07/19/22 03:55 Creatinine 0.8 mg/dL (0.6-1.2) 07/19/22 16:42 Estimated GFR > 60 ml/min 07/19/22 16:42 BUN/Creatinine Ratio 16 % 07/19/22 03:55 Glucose 124 mg/dL (65-100) H 07/19/22 03:55 POC Glucose 113 mg/dL (70-105) H 07/19/22 11:58 Lactic Acid 5.10 mmol/L (0.7-2.0) H* 07/18/22 Unknown Calcium 7.8 mg/dL (8.4-10.2) L 07/19/22 03:55 Magnesium 1.80 mg/dL (1.7-2.3) 07/19/22 09:13 Total Bilirubin 0.40 mg/dL (0.1-1.2) 07/18/22 10:23 AST 226 units/L (5-40) H 07/18/22 10:23 ALT 73 units/L (7-56) H 07/18/22 10:23 Alkaline Phosphatase 202 units/L (35-129) H 07/18/22 10:23 Total Creatine Kinase 90 units/L (30-135) 07/18/22 10:23 CK-MB (CK-2) 3.8 ng/mL (0.0-4.0) 07/18/22 10:23 CK-MB (CK-2) Rel Index 4.2 (0-4) H 07/18/22 10:23 Troponin T 0.269 ng/mL (0.00-0.029) H* D 07/18/22 13:01 NT-Pro-B Natriuret Pep 259.1 pg/mL (0-900) 07/18/22 10:23 Total Protein 5.8 g/dL (6.3-8.2) L 07/18/22 10:23 Albumin 3.2 g/dL (3.9-5) L 07/18/22 10:23 Albumin/Globulin Ratio 1.2 % 07/18/22 10:23 Triglycerides TNR 07/18/22 07:59 Cholesterol TNR 07/18/22 07:59 LDL Cholesterol Direct TNR 07/18/22 07:59 HDL Cholesterol TNR 07/18/22 07:59 Cholesterol/HDL Ratio TNR 07/18/22 07:59 Blood Type O POSITIVE 07/18/22 09:03 Antibody Screen Negative 07/18/22 09:03 Microbiology: Microbiology 07/18/22 09:18 Peripheral/Venous Blood Culture - Preliminary NO GROWTH AFTER 24 HOURS 07/18/22 09:18 Peripheral/Venous Blood Culture - Preliminary NO GROWTH AFTER 24 HOURS Active Medications - Current Medications Current Medications: Generic Name Dose Route Start Last Admin Trade Name Freq PRN Reason Stop Dose Admin Acetaminophen 650 mg 07/18/22 13:03 Acetaminophen 325 Mg Tab PO Q4H PRN Pain MILD(1-3)/Fever >100.5/BOSE Apixaban 10 mg 07/19/22 22:00 Apixaban 5 Mg Tab PO 07/26/22 10:01 Q12HR MANFRED Protocol Apixaban 5 mg 07/26/22 22:00 Apixaban 5 Mg Tab PO Q12HR MANFRED Protocol Dextrose 50 ml 07/19/22 18:25 Dextrose 50% In Water (25gm) 50 Ml Syringe IV Q30MIN PRN Hypoglycemia Protocol Sodium Chloride 1,000 mls @ 30 mls/hr 07/18/22 13:45 Nacl 0.9% 1000 Ml IV DIRECT MANFRED Insulin Human Lispro 0 unit 07/19/22 22:00 Insulin Lispro 100 Unit/Ml SUB-Q ACHS [facility] Protocol Morphine Sulfate 2 mg 07/18/22 13:03 Morphine 2 Mg/1 Ml Inj IV Q4H PRN Pain, Moderate (4-6) Morphine Sulfate 4 mg 07/18/22 14:04 Morphine 4 Mg/1 Ml Inj IV Q4H PRN Pain , Severe (7-10) Ondansetron HCl 4 mg 07/18/22 14:04 Ondansetron 4 Mg/2 Ml Inj IV Q8H PRN Nausea And Vomiting Sodium Chloride 10 ml 07/18/22 22:00 07/18/22 21:54 Sodium Chloride 0.9% 10 Ml Flush Syringe IV 10 ml BID MANFRED Administration Sodium Chloride 10 ml 07/18/22 13:03 Sodium Chloride 0.9% 10 Ml Flush Syringe IV PRN PRN LINE FLUSH
[2022-07-19] MEDS: INSULIN LISPRO 100 UNIT/ML SUB-Q SCH (21:53)
[2022-07-19] MEDS: APIXABAN 5 MG TAB PO SCH (21:54)
[2022-07-20 04:52] LABS: Hematocrit 22.2 % (30.3-42.9); Hemoglobin 7.4 gm/dl (10.1-14.3)
[2022-07-20 05:09] LABS: Blood Urea Nitrogen 10 mg/dL (7-17); Calcium 8.2 mg/dL (8.4-10.2); Hemolysis Index 6
[2022-07-20 05:12] LABS: BUN/Creatinine Ratio 14
[2022-07-20] MEDS: INSULIN LISPRO 100 UNIT/ML SUB-Q SCH ×4 (08:14→23:20)
[2022-07-20] MEDS: APIXABAN 5 MG TAB PO SCH ×2 (09:23→22:10)
--- NOTE | 2022-07-20 11:12 | Progress Note ---
Assessment and Plan Patient is a 62-year-old female with a past medical history of CVA, dementia and diabetes who was brought to the ED for lightheadedness and syncopal episode today and found to have bilateral PE Syncope Bilateral PE-vascular following NSTEMI suspect type II Diabetes Dementia History of CVA Anemia Echo 05/20/2022-60 to 65% borderline concentric LVH. Mild aortic regurgitation. Trace mitral regurgitation. Trace to mild tricuspid regurgitation. Borderline pulmonary hypertension. Saline bubble study did not demonstrate PFO Echo 07/19/2022-EF 60 to 65%. Mild diastolic dysfunction is present. Impaired relaxation pattern. Right ventricle is normal in size. Right ventricular systolic function is normal. No pericardial effusion Plan: Troponins noted to be elevated however suspect NSTEMI type II in setting of large bilateral PE Will defer to vascular recommendations in regards to anticoagulation Due to patient mental status and large bilateral PEs recommend conservative cardiac management Repeat echo results noted above. Cardiac status otherwise stable will see as needed Patient seen in conjunction with Dr. Sandhu who agrees this plan of care 30 minutes of critical care time spent in care coordination of patient - Patient Problems (1) Anemia Current Visit: Yes Status: Acute (2) Dementia Current Visit: Yes Status: Acute (3) Hypotension Current Visit: Yes Status: Acute Qualifiers: Hypotension type: unspecified hypotension type Qualified Code(s): I95.9 - Hypotension, unspecified (4) Syncope Current Visit: Yes Status: Acute (5) Pulmonary emboli Current Visit: Yes Status: Acute Subjective Date of service: 07/20/22 Principal diagnosis: Pulmonary embolism Interval history: Patient resting in bed in patient in no acute distress Sinus 70s-80s on monitor with no event Objective Vital Signs Temp Pulse Pulse Resp BP Pulse Ox 07/20/22 10:00 88 16 117/55 99 07/20/22 09:00 68 14 116/53 99 07/20/22 08:00 98.4 F 69 70 15 118/56 98 07/20/22 07:00 69 15 108/48 99 07/20/22 06:00 76 13 112/49 98 07/20/22 05:00 74 14 109/46 99 07/20/22 04:00 98.8 F 85 13 112/53 98 07/20/22 03:18 71 07/20/22 03:00 74 15 118/60 99 07/20/22 02:00 79 16 115/58 99 07/20/22 01:01 79 15 124/47 100 07/20/22 00:00 98.2 F 83 15 110/59 100 07/19/22 23:47 76 100 07/19/22 23:37 80 15 100/49 100 07/19/22 23:00 81 14 100/49 100 07/19/22 22:00 85 16 109/56 100 07/19/22 21:00 81 14 105/49 99 07/19/22 20:00 99.5 F 81 14 110/47 98 07/19/22 19:20 85 100 07/19/22 19:00 78 17 108/50 100 07/19/22 18:00 70 14 103/40 100 07/19/22 17:01 85 18 123/57 100 07/19/22 16:05 100 07/19/22 16:00 98.3 F 77 15 123/57 100 07/19/22 15:01 79 14 109/56 100 07/19/22 14:00 76 13 114/59 100 07/19/22 13:00 78 13 106/61 100 07/19/22 12:10 100 07/19/22 12:00 97.6 F 75 14 125/68 100 - Physical Examination General: No Apparent Distress HEENT: Positive: PERRL Neck: Positive: trachea midline Cardiac: Positive: Reg Rate and Rhythm Lungs: Positive: Decreased Breath Sounds Neuro: Positive: Grossly Intact Abdomen: Positive: Soft Skin: Negative: Rash, Suspicious Lesions, Ulceration Extremities: Present: upper extr. pulses. Absent: edema - Labs and Meds Coagulation 07/19/22 Range/Units 16:42 PT 14.6 (12.2-14.9) Sec. INR 1.03 (0.87-1.13) APTT 21.7 L (24.2-36.6) Sec. CBC 07/19/22 07/20/22 Range/Units 16:42 04:01 WBC 9.3 (4.5-11.0) K/mm3 RBC 2.45 L (3.65-5.03) M/mm3 Hgb 7.6 L 7.4 L (10.1-14.3) gm/dl Hct 22.4 L 22.2 L (30.3-42.9) % Plt Count 256 248 (140-440) K/mm3 Comprehensive Metabolic Panel 07/19/22 07/20/22 Range/Units 16:42 04:01 Sodium 138 (137-145) mmol/L Potassium 3.7 (3.6-5.0) mmol/L Chloride 109.0 H (98-107) mmol/L Carbon Dioxide 25 (22-30) mmol/L BUN 10 (7-17) mg/dL Creatinine 0.8 0.7 (0.6-1.2) mg/dL Glucose 147 H (65-100) mg/dL Calcium 8.2 L (8.4-10.2) mg/dL - Imaging and Cardiology Echo: report reviewed - Telemetry EKG Rhythm: Sinus Rhythm - EKG Sinus rhythms and dysrhythmias: sinus rhythm AV and intraventricular conduction: right bundle branch block
--- NOTE | 2022-07-20 11:50 | Progress Note ---
Assessment and Plan 62 y/o bilateral pulmonary emboli Transfer to floor. On oral therapy. 1. S/p ekos. tolerated well. Down to lab intern now to get catheters removed. If stable should be able to transfer to floor later today. 2. Oral anticoagulation 3. Hypercoag work up as outpatient 4. Need to merge her charts. Subjective Date of service: 07/20/22 Principal diagnosis: Pulmonary embolism Interval history: No acute events. Objective Vital Signs - 12hr 07/19/22 07/20/22 07/20/22 23:47 00:00 01:01 Temperature 98.2 F Pulse Rate 76 83 79 Pulse Rate [ From Monitor] Respiratory 15 15 Rate Blood Pressure 110/59 124/47 O2 Sat by Pulse 100 100 100 Oximetry 07/20/22 07/20/22 07/20/22 02:00 03:00 03:18 Temperature Pulse Rate 79 74 71 Pulse Rate [ From Monitor] Respiratory 16 15 Rate Blood Pressure 115/58 118/60 O2 Sat by Pulse 99 99 Oximetry 07/20/22 07/20/22 07/20/22 04:00 05:00 06:00 Temperature 98.8 F Pulse Rate 85 74 76 Pulse Rate [ From Monitor] Respiratory 13 14 13 Rate Blood Pressure 112/53 109/46 112/49 O2 Sat by Pulse 98 99 98 Oximetry 07/20/22 07/20/22 07/20/22 07:00 08:00 09:00 Temperature 98.4 F Pulse Rate 69 69 68 Pulse Rate [ 70 From Monitor] Respiratory 15 15 14 Rate Blood Pressure 108/48 118/56 116/53 O2 Sat by Pulse 99 98 99 Oximetry 07/20/22 10:00 Temperature Pulse Rate 88 Pulse Rate [ From Monitor] Respiratory 16 Rate Blood Pressure 117/55 O2 Sat by Pulse 99 Oximetry Constitutional: no acute distress Eyes: non-icteric ENT: oropharynx moist Neck: supple Effort: normal Ascultation: Bilateral: diminished breath sounds CBC and BMP: 07/20/22 04:01 07/20/22 04:01 ABG, PT/INR, D-dimer: PT/INR, D-dimer PT 14.6 Sec. (12.2-14.9) 07/19/22 16:42 INR 1.03 (0.87-1.13) 07/19/22 16:42 D-Dimer [id number] ng/mlDDU (0-234) H 07/18/22 07:59 Abnormal lab findings: Abnormal Labs 07/18/22 07/18/22 07/18/22 07:59 07:59 10:23 WBC 12.7 H RBC 3.05 L Hgb 9.2 L Hct 28.0 L [place] % (Auto) [place] # (Auto) Seg Neutrophils % 76.3 H Seg Neutrophils # 9.7 H PT APTT D-Dimer 10723 H Heparin Anti-Xa Level Potassium 3.5 L Chloride 107.2 H Glucose 264 H POC Glucose Lactic Acid Calcium AST 226 H ALT 73 H Alkaline Phosphatase 202 H CK-MB (CK-2) Rel Index 4.2 H Troponin T 0.199 H* Total Protein 5.8 L Albumin 3.2 L 07/18/22 07/18/22 07/18/22 10:23 12:27 13:01 WBC RBC Hgb Hct [place] % (Auto) [place] # (Auto) Seg Neutrophils % Seg Neutrophils # PT APTT D-Dimer Heparin Anti-Xa Level Potassium Chloride Glucose POC Glucose Lactic Acid 2.10 H* 2.70 H* Calcium AST ALT Alkaline Phosphatase CK-MB (CK-2) Rel Index Troponin T 0.269 H* D Total Protein Albumin 07/18/22 07/18/22 07/18/22 13:54 19:18 19:18 WBC 11.6 H RBC 2.66 L Hgb 8.2 L Hct 24.6 L [place] % (Auto) 9.3 H [place] # (Auto) 1.1 H Seg Neutrophils % Seg Neutrophils # 7.9 H PT 15.8 H APTT > 240.0 H* D-Dimer Heparin Anti-Xa Level > 2.00 H Potassium Chloride Glucose POC Glucose Lactic Acid Calcium AST ALT Alkaline Phosphatase CK-MB (CK-2) Rel Index Troponin T Total Protein Albumin 07/18/22 07/18/22 07/19/22 22:26 Unknown 00:55 WBC RBC Hgb Hct [place] % (Auto) [place] # (Auto) Seg Neutrophils % Seg Neutrophils # PT APTT D-Dimer Heparin Anti-Xa Level > 2.00 H 0.84 H Potassium Chloride Glucose POC Glucose Lactic Acid 5.10 H* Calcium AST ALT Alkaline Phosphatase CK-MB (CK-2) Rel Index Troponin T Total Protein Albumin 07/19/22 07/19/22 07/19/22 00:55 01:08 03:55 WBC RBC 2.57 L Hgb 7.9 L Hct 23.5 L [place] % (Auto) 10.2 H [place] # (Auto) 1.0 H Seg Neutrophils % Seg Neutrophils # PT APTT D-Dimer Heparin Anti-Xa Level Potassium 3.3 L Chloride 110.4 H Glucose 124 H POC Glucose 120 H Lactic Acid Calcium 7.8 L AST ALT Alkaline Phosphatase CK-MB (CK-2) Rel Index Troponin T Total Protein Albumin 07/19/22 07/19/22 07/19/22 09:13 11:58 16:42 WBC RBC 2.37 L 2.45 L Hgb 7.3 L 7.6 L Hct 21.9 L 22.4 L [place] % (Auto) 8.9 H [place] # (Auto) Seg Neutrophils % Seg Neutrophils # PT APTT D-Dimer Heparin Anti-Xa Level Potassium Chloride Glucose POC Glucose 113 H Lactic Acid Calcium AST ALT Alkaline Phosphatase CK-MB (CK-2) Rel Index Troponin T Total Protein Albumin 07/19/22 07/19/22 07/19/22 16:42 16:43 21:51 WBC RBC Hgb Hct [place] % (Auto) [place] # (Auto) Seg Neutrophils % Seg Neutrophils # PT APTT 21.7 L D-Dimer Heparin Anti-Xa Level Potassium Chloride Glucose POC Glucose 160 H 198 H Lactic Acid Calcium AST ALT Alkaline Phosphatase CK-MB (CK-2) Rel Index Troponin T Total Protein Albumin 07/19/22 07/20/22 07/20/22 Unknown 04:01 04:01 WBC RBC Hgb 7.4 L Hct 22.2 L [place] % (Auto) [place] # (Auto) Seg Neutrophils % Seg Neutrophils # PT APTT D-Dimer Heparin Anti-Xa Level 0.89 H Potassium Chloride 109.0 H Glucose 147 H POC Glucose Lactic Acid Calcium 8.2 L AST ALT Alkaline Phosphatase CK-MB (CK-2) Rel Index Troponin T Total Protein Albumin 07/20/22 07:42 WBC RBC Hgb Hct [place] % (Auto) [place] # (Auto) Seg Neutrophils % Seg Neutrophils # PT APTT D-Dimer Heparin Anti-Xa Level Potassium Chloride Glucose POC Glucose 141 H Lactic Acid Calcium AST ALT Alkaline Phosphatase CK-MB (CK-2) Rel Index Troponin T Total Protein Albumin
[2022-07-20] MEDS: ACETAMINOPHEN 325 MG TAB PO PRN (14:00)
--- NOTE | 2022-07-20 15:05 | Progress Note ---
Assessment and Plan Assessment and plan: This is a 62-year-old female with CVA, dementia, DM admitted with bilateral near occlusive pulmonary embolism s/p EKOS Neuro: H/O CVA, dementia -Reorientation as needed -Maintain sleep-wake cycle -As needed analgesia -Continue supportive care -PT/OT consulted, appreciate recommendations Cardiac: Syncope, NSTEMI suspected type II -Cardiology consulted, appreciate recommendations -Blood pressure monitoring per protocol -05/2022 echocardiogram shows 60 to 65% EF, borderline pulmonary hypertension, no PFO -07/19/2022 echo showed EF of 60 to 65%, no pericardial effusion Respiratory: Acute hypoxic respiratory failure (resolved) -Presented with complaints of shortness of breath -CCM consulted, appreciate recommendations -Weaned to nasal cannula -Supplemental oxygen as needed -SPO2 monitor per protocol -Pulmonary hygiene GI: Obesity, mild protein calorie malnutrition -Dietary supplementation -CC diet -PPI : NAD -Monitor intake and output -Renally dose medications -Avoid nephrotoxic medications ID: NAD -Monitor WBC and temperature curve Endo: H/O DM -CC diet -Avoid hypoglycemia -SSI -Accu-Cheks q. ACHS Heme: Large Bilateral pulmonary embolism -CTA chest showed large bilateral pulmonary emboli with evidence of right heart strain -Vascular surgery, cardiology consulted, appreciate recommendations -S/p EKOS thrombolysis -S/p heparin drip -Eliquis PO -Trend CBC -Transfuse hemoglobin less than 7 -SCDs to BLE while in bed -Recommend outpatient hematology work-up The high probability of a clinically significant, sudden or life threatening deterioration of the [pulm] system(s) required my full and direct attention, intervention and personal management. The aggregate critical care time was [60] minutes. This time is in addition to time spent performing reported procedures but includes the following: [x] Data Review and interpretation [x] Patient assessment and monitoring of vital signs [x] Documentation [x] Medication orders and management Disposition Plan: transfer to floor Total Time Spent with Patient (Minutes): 60 History Interval history: This is a 62-year-old female with CVA, dementia, DM who presented to the emergency department on 07/18 via EMS after being reported to have it hard to fall by family and upon checking on the patient she was found to be on the floor and was placed back in bed when she became less responsive. Upon EMS arrival patient was found to have tachycardia and systolic blood pressure of 70 and received 2 fluid boluses which corrected her hypotension and tachycardia and she initially complained of shortness of breath and chest pain. Chest pain resolved however as she continued to complain of shortness of breath. Of note patient was recently hospitalized in May and June 2022 with symptoms consistent with stroke however MRI was negative on both admissions. EMS also reported a blood glucose of 250. In the emergency department patient was found to have hypokalemia, anemia, acute pulmonary embolism with evidence of right ventricular strain on CT, lactic acidosis, elevated troponins and transaminitis. Patient was admitted to the hospitalist service with consults to cardiology and vascular surgery and received thrombolysis of her bilateral pulmonary emboli. Post EKOS patient was transferred to ICU. Hospital course to date: 07/19: Patient had her EKOS catheter removed, patient was started on Eliquis. Patient was hypokalemic this morning which was repleted. Patient will be transferred to IMCU. 07/20: No acute events reported overnight. Patient transferred to floor. Patient was started on DOAC yesterday. Hospitalist Physical - Constitutional Vitals: Temp Pulse Resp BP Pulse Ox 98 F 87 14 109/51 100 07/20/22 12:00 07/20/22 13:00 07/20/22 13:00 07/20/22 13:00 07/20/22 13:00 General appearance: Present: no acute distress, obese - EENT Eyes: Present: PERRL, EOM intact ENT: hearing intact, clear oral mucosa - Neck Neck: Present: normal ROM - Respiratory Respiratory effort: normal Respiratory: bilateral: CTA - Cardiovascular Rhythm: regular Heart Sounds: Present: S1 & S2. Absent: systolic murmur, diastolic murmur - Extremities Extremities: no ischemia, pulses intact, pulses symmetrical, No edema, normal temperature, normal color Peripheral Pulses: within normal limits - Abdominal General gastrointestinal: soft, non-tender, non-distended, normal bowel sounds - Integumentary Integumentary: Present: warm, dry - Psychiatric Psychiatric: cooperative - Neurologic Neurologic: CNII-XII intact, no focal deficits, moves all extremities - Allied Health Allied health notes reviewed: nursing, social work HEART Score - HEART Score Age: 45-65 Risk factors: 1-2 risk factors Troponin: Troponin T 0.269 ng/mL (0.00-0.029) H* D 07/18/22 13:01 - Critical Actions Critical Actions: 0-3 pts:0.9-1.7%risk of adverse cardiac event.Candidate for discharge Results - Labs CBC & Chem 7: 07/20/22 04:01 07/20/22 04:01 Labs: Laboratory Last Values WBC 9.3 K/mm3 (4.5-11.0) 07/19/22 16:42 RBC 2.45 M/mm3 (3.65-5.03) L 07/19/22 16:42 Hgb 7.4 gm/dl (10.1-14.3) L 07/20/22 04:01 Hct 22.2 % (30.3-42.9) L 07/20/22 04:01 MCV 92 fl (79-97) 07/19/22 16:42 MCH 31 pg (28-32) 07/19/22 16:42 MCHC 34 % (30-34) 07/19/22 16:42 RDW 14.5 % (13.2-15.2) 07/19/22 16:42 Plt Count 248 K/mm3 (140-440) 07/20/22 04:01 Lymph % (Auto) 28.1 % (13.4-35.0) 07/19/22 09:13 [place] % (Auto) 8.9 % (0.0-7.3) H 07/19/22 09:13 Eos % (Auto) 1.7 % (0.0-4.3) 07/19/22 09:13 Baso % (Auto) 0.5 % (0.0-1.8) 07/19/22 09:13 Lymph # (Auto) 2.3 K/mm3 (1.2-5.4) 07/19/22 09:13 [place] # (Auto) 0.7 K/mm3 (0.0-0.8) 07/19/22 09:13 Eos # (Auto) 0.1 K/mm3 (0.0-0.4) 07/19/22 09:13 Baso # (Auto) 0.0 K/mm3 (0.0-0.1) 07/19/22 09:13 Seg Neutrophils % 60.8 % (40.0-70.0) 07/19/22 09:13 Seg Neutrophils # 5.0 K/mm3 (1.8-7.7) 07/19/22 09:13 PT 14.6 Sec. (12.2-14.9) 07/19/22 16:42 INR 1.03 (0.87-1.13) 07/19/22 16:42 APTT 21.7 Sec. (24.2-36.6) L 07/19/22 16:42 Fibrinogen 272 mg/dl (211-480) 07/19/22 Unknown D-Dimer 40724 ng/mlDDU (0-234) H 07/18/22 07:59 Heparin Anti-Xa Level 0.89 U.I./ml (0.3-0.7) H 07/19/22 Unknown Sodium 138 mmol/L (137-145) 07/20/22 04:01 Potassium 3.7 mmol/L (3.6-5.0) 07/20/22 04:01 Chloride 109.0 mmol/L (98-107) H 07/20/22 04:01 Carbon Dioxide 25 mmol/L (22-30) 07/20/22 04:01 Anion Gap 8 mmol/L 07/20/22 04:01 BUN 10 mg/dL (7-17) 07/20/22 04:01 Creatinine 0.7 mg/dL (0.6-1.2) 07/20/22 04:01 Estimated GFR > 60 ml/min 07/20/22 04:01 BUN/Creatinine Ratio 14 % 07/20/22 04:01 Glucose 147 mg/dL (65-100) H 07/20/22 04:01 POC Glucose 177 mg/dL (70-105) H 07/20/22 11:43 Lactic Acid 5.10 mmol/L (0.7-2.0) H* 07/18/22 Unknown Calcium 8.2 mg/dL (8.4-10.2) L 07/20/22 04:01 Magnesium 1.80 mg/dL (1.7-2.3) 07/19/22 09:13 Total Bilirubin 0.40 mg/dL (0.1-1.2) 07/18/22 10:23 AST 226 units/L (5-40) H 07/18/22 10:23 ALT 73 units/L (7-56) H 07/18/22 10:23 Alkaline Phosphatase 202 units/L (35-129) H 07/18/22 10:23 Total Creatine Kinase 90 units/L (30-135) 07/18/22 10:23 CK-MB (CK-2) 3.8 ng/mL (0.0-4.0) 07/18/22 10:23 CK-MB (CK-2) Rel Index 4.2 (0-4) H 07/18/22 10:23 Troponin T 0.269 ng/mL (0.00-0.029) H* D 07/18/22 13:01 NT-Pro-B Natriuret Pep 259.1 pg/mL (0-900) 07/18/22 10:23 Total Protein 5.8 g/dL (6.3-8.2) L 07/18/22 10:23 Albumin 3.2 g/dL (3.9-5) L 07/18/22 10:23 Albumin/Globulin Ratio 1.2 % 07/18/22 10:23 Triglycerides TNR 07/18/22 07:59 Cholesterol TNR 07/18/22 07:59 LDL Cholesterol Direct TNR 07/18/22 07:59 HDL Cholesterol TNR 07/18/22 07:59 Cholesterol/HDL Ratio TNR 07/18/22 07:59 Blood Type O POSITIVE 07/18/22 09:03 Antibody Screen Negative 07/18/22 09:03 Microbiology: Microbiology 07/18/22 09:18 Peripheral/Venous Blood Culture - Preliminary NO GROWTH AFTER 48 HOURS 07/18/22 09:18 Peripheral/Venous Blood Culture - Preliminary NO GROWTH AFTER 48 HOURS Active Medications - Current Medications Current Medications: Generic Name Dose Route Start Last Admin Trade Name Freq PRN Reason Stop Dose Admin Acetaminophen 650 mg 07/18/22 13:03 Acetaminophen 325 Mg Tab PO Q4H PRN Pain MILD(1-3)/Fever >100.5/BOSE Apixaban 10 mg 07/19/22 22:00 07/20/22 09:23 Apixaban 5 Mg Tab PO 07/26/22 10:01 10 mg Q12HR MANFRED Administration Protocol Apixaban 5 mg 07/26/22 22:00 Apixaban 5 Mg Tab PO Q12HR MANFRED Protocol Dextrose 50 ml 07/19/22 18:25 Dextrose 50% In Water (25gm) 50 Ml Syringe IV Q30MIN PRN Hypoglycemia Protocol Sodium Chloride 1,000 mls @ 30 mls/hr 07/18/22 13:45 Nacl 0.9% 1000 Ml IV DIRECT MANFRED Insulin Human Lispro 0 unit 07/19/22 22:00 07/20/22 11:51 Insulin Lispro 100 Unit/Ml SUB-Q 1 unit ACHS MANFRED Administration Protocol Morphine Sulfate 2 mg 07/18/22 13:03 Morphine 2 Mg/1 Ml Inj IV Q4H PRN Pain, Moderate (4-6) Morphine Sulfate 4 mg 07/18/22 14:04 Morphine 4 Mg/1 Ml Inj IV Q4H PRN Pain , Severe (7-10) Ondansetron HCl 4 mg 07/18/22 14:04 Ondansetron 4 Mg/2 Ml Inj IV Q8H PRN Nausea And Vomiting Sodium Chloride 10 ml 07/18/22 22:00 07/20/22 09:23 Sodium Chloride 0.9% 10 Ml Flush Syringe IV 10 ml BID MANFRED Administration Sodium Chloride 10 ml 07/18/22 13:03 Sodium Chloride 0.9% 10 Ml Flush Syringe IV PRN PRN LINE FLUSH
[2022-07-21 06:44] LABS: Hematocrit 20.6 % (30.3-42.9); Hemoglobin 6.9 gm/dl (10.1-14.3); Mean Corpuscular HGB Conc 34 % (30-34); Mean Corpuscular Volume 91 fl (79-97); Platelet Count 275 K/mm3 (140-440); Red Blood Count 2.26 M/mm3 (3.65-5.03); Red Cell Distribution Width 14.4 % (13.2-15.2)
[2022-07-21] MEDS: INSULIN LISPRO 100 UNIT/ML SUB-Q SCH ×4 (07:55→23:59)
[2022-07-21] MEDS ORDERED: SODIUM CHLORIDE 0.9% 500 ML 500 ML IV NR (08:16)
--- NOTE | 2022-07-21 08:20 | Progress Note ---
Assessment and Plan Assessment and plan: History Interval history: This is a 62-year-old female with CVA, dementia, DM who presented to the emergency department on 07/18 via EMS after being reported to have it hard to fall by family and upon checking on the patient she was found to be on the floor and was placed back in bed when she became less responsive. Upon EMS arrival patient was found to have tachycardia and systolic blood pressure of 70 and received 2 fluid boluses which corrected her hypotension and tachycardia and she initially complained of shortness of breath and chest pain. Chest pain resolved however as she continued to complain of shortness of breath. Of note patient was recently hospitalized in May and June 2022 with symptoms consistent with stroke however MRI was negative on both admissions. EMS also reported a blood glucose of 250. In the emergency department patient was found to have hypokalemia, anemia, acute pulmonary embolism with evidence of right ventricular strain on CT, lactic acidosis, elevated troponins and transaminitis. Patient was admitted to the hospitalist service with consults to cardiology and vascular surgery and received thrombolysis of her bilateral pulmonary emboli. Post EKOS patient was transferred to ICU. Hospital course to date: 07/19: Patient had her EKOS catheter removed, patient was started on Eliquis. Patient was hypokalemic this morning which was repleted. Patient will be transferred to IMCU. 07/20: No acute events reported overnight. Patient transferred to floor. Patient was started on DOAC yesterday. 07/21: Anemic, hgb: 6.9. No acute signs and symptoms of active bleed. 1 unit prbc ordered. Repeat hgb ordered for tomorrow AM. Possible dc tomorrow if ok with vascular. Assessment and plan: This is a 62-year-old female with CVA, dementia, DM admitted with bilateral near occlusive pulmonary embolism s/p EKOS Neuro: H/O CVA, dementia -Reorientation as needed -Maintain sleep-wake cycle -As needed analgesia -Continue supportive care -PT/OT consulted, appreciate recommendations Cardiac: Syncope, NSTEMI suspected type II -Cardiology consulted, appreciate recommendations -Blood pressure monitoring per protocol -05/2022 echocardiogram shows 60 to 65% EF, borderline pulmonary hypertension, no PFO -07/19/2022 echo showed EF of 60 to 65%, no pericardial effusion Respiratory: Acute hypoxic respiratory failure (resolved) -Presented with complaints of shortness of breath -CCM consulted, appreciate recommendations -Weaned to nasal cannula -Supplemental oxygen as needed -SPO2 monitor per protocol -Pulmonary hygiene GI: Obesity, mild protein calorie malnutrition -Dietary supplementation -CC diet -PPI : NAD -Monitor intake and output -Renally dose medications -Avoid nephrotoxic medications ID: NAD -Monitor WBC and temperature curve Endo: H/O DM -CC diet -Avoid hypoglycemia -SSI -Accu-Cheks q. ACHS Heme: Large Bilateral pulmonary embolism -CTA chest showed large bilateral pulmonary emboli with evidence of right heart strain -Vascular surgery, cardiology consulted, appreciate recommendations -S/p EKOS thrombolysis -S/p heparin drip -Eliquis PO -Trend CBC -Transfuse hemoglobin less than 7 -SCDs to BLE while in bed -Recommend outpatient hematology work-up #Advance care planning Disease education conducted, care plan discussed, diagnoses discussed, prognosis discussed, patient is full code, patient acknowledges understanding and agree with care plan, +30 minutes. Time spent: +35 min CPT 55647 History Interval history: No complaints on encounter. Patient resting comfortably eating lunch, NAD. VSS. Hospitalist Physical - Physical exam Narrative exam: General appearance: Present: no acute distress, obese - EENT Eyes: Present: PERRL, EOM intact ENT: hearing intact, clear oral mucosa - Neck Neck: Present: normal ROM - Respiratory Respiratory effort: normal Respiratory: bilateral: CTA - Cardiovascular Rhythm: regular Heart Sounds: Present: S1 & S2. Absent: systolic murmur, diastolic murmur - Extremities Extremities: no ischemia, pulses intact, pulses symmetrical, No edema, normal temperature, normal color Peripheral Pulses: within normal limits - Abdominal General gastrointestinal: soft, non-tender, non-distended, normal bowel sounds - Integumentary Integumentary: Present: warm, dry - Psychiatric Psychiatric: cooperative - Neurologic Neurologic: CNII-XII intact, no focal deficits, moves all extremities - Allied Health Allied health notes reviewed: nursing, social work - Constitutional Vitals: Temp Pulse Resp BP Pulse Ox 98.3 F 82 18 118/57 97 07/21/22 04:39 07/21/22 04:39 07/21/22 04:39 07/21/22 04:39 07/21/22 04:39 General appearance: Present: no acute distress, obese HEART Score - HEART Score Age: 45-65 Risk factors: 1-2 risk factors Troponin: Troponin T 0.269 ng/mL (0.00-0.029) H* D 07/18/22 13:01 - Critical Actions Critical Actions: 0-3 pts:0.9-1.7%risk of adverse cardiac event.Candidate for discharge Results - Labs CBC & Chem 7: 07/21/22 05:57 07/20/22 04:01 Labs: Laboratory Last Values WBC 7.9 K/mm3 (4.5-11.0) 07/21/22 05:57 RBC 2.26 M/mm3 (3.65-5.03) L 07/21/22 05:57 Hgb 6.9 gm/dl (10.1-14.3) L 07/21/22 05:57 Hct 20.6 % (30.3-42.9) L 07/21/22 05:57 MCV 91 fl (79-97) 07/21/22 05:57 MCH 31 pg (28-32) 07/21/22 05:57 MCHC 34 % (30-34) 07/21/22 05:57 RDW 14.4 % (13.2-15.2) 07/21/22 05:57 Plt Count 275 K/mm3 (140-440) 07/21/22 05:57 Lymph % (Auto) 28.1 % (13.4-35.0) 07/19/22 09:13 [place] % (Auto) 8.9 % (0.0-7.3) H 07/19/22 09:13 Eos % (Auto) 1.7 % (0.0-4.3) 07/19/22 09:13 Baso % (Auto) 0.5 % (0.0-1.8) 07/19/22 09:13 Lymph # (Auto) 2.3 K/mm3 (1.2-5.4) 07/19/22 09:13 [place] # (Auto) 0.7 K/mm3 (0.0-0.8) 07/19/22 09:13 Eos # (Auto) 0.1 K/mm3 (0.0-0.4) 07/19/22 09:13 Baso # (Auto) 0.0 K/mm3 (0.0-0.1) 07/19/22 09:13 Seg Neutrophils % 60.8 % (40.0-70.0) 07/19/22 09:13 Seg Neutrophils # 5.0 K/mm3 (1.8-7.7) 07/19/22 09:13 PT 14.6 Sec. (12.2-14.9) 07/19/22 16:42 INR 1.03 (0.87-1.13) 07/19/22 16:42 APTT 21.7 Sec. (24.2-36.6) L 07/19/22 16:42 Fibrinogen 272 mg/dl (211-480) 07/19/22 Unknown D-Dimer 92641 ng/mlDDU (0-234) H 07/18/22 07:59 Heparin Anti-Xa Level 0.89 U.I./ml (0.3-0.7) H 07/19/22 Unknown Sodium 138 mmol/L (137-145) 07/20/22 04:01 Potassium 3.7 mmol/L (3.6-5.0) 07/20/22 04:01 Chloride 109.0 mmol/L (98-107) H 07/20/22 04:01 Carbon Dioxide 25 mmol/L (22-30) 07/20/22 04:01 Anion Gap 8 mmol/L 07/20/22 04:01 BUN 10 mg/dL (7-17) 07/20/22 04:01 Creatinine 0.7 mg/dL (0.6-1.2) 07/20/22 04:01 Estimated GFR > 60 ml/min 07/20/22 04:01 BUN/Creatinine Ratio 14 % 07/20/22 04:01 Glucose 147 mg/dL (65-100) H 07/20/22 04:01 POC Glucose 170 mg/dL (70-105) H 07/20/22 22:04 Lactic Acid 5.10 mmol/L (0.7-2.0) H* 07/18/22 Unknown Calcium 8.2 mg/dL (8.4-10.2) L 07/20/22 04:01 Magnesium 1.80 mg/dL (1.7-2.3) 07/19/22 09:13 Total Bilirubin 0.40 mg/dL (0.1-1.2) 07/18/22 10:23 AST 226 units/L (5-40) H 07/18/22 10:23 ALT 73 units/L (7-56) H 07/18/22 10:23 Alkaline Phosphatase 202 units/L (35-129) H 07/18/22 10:23 Total Creatine Kinase 90 units/L (30-135) 07/18/22 10:23 CK-MB (CK-2) 3.8 ng/mL (0.0-4.0) 07/18/22 10:23 CK-MB (CK-2) Rel Index 4.2 (0-4) H 07/18/22 10:23 Troponin T 0.269 ng/mL (0.00-0.029) H* D 07/18/22 13:01 NT-Pro-B Natriuret Pep 259.1 pg/mL (0-900) 07/18/22 10:23 Total Protein 5.8 g/dL (6.3-8.2) L 07/18/22 10:23 Albumin 3.2 g/dL (3.9-5) L 07/18/22 10:23 Albumin/Globulin Ratio 1.2 % 07/18/22 10:23 Triglycerides TNR 07/18/22 07:59 Cholesterol TNR 07/18/22 07:59 LDL Cholesterol Direct TNR 07/18/22 07:59 HDL Cholesterol TNR 07/18/22 07:59 Cholesterol/HDL Ratio TNR 07/18/22 07:59 Blood Type O POSITIVE 07/18/22 09:03 Antibody Screen Negative 07/18/22 09:03 Crossmatch See Detail 07/18/22 09:03 Microbiology: Microbiology 07/18/22 09:18 Peripheral/Venous Blood Culture - Preliminary NO GROWTH AFTER 48 HOURS 07/18/22 09:18 Peripheral/Venous Blood Culture - Preliminary NO GROWTH AFTER 48 HOURS [place]/IV: Voiding Method External Female Catheter Active Medications - Current Medications Current Medications: Generic Name Dose Route Start Last Admin Trade Name Freq PRN Reason Stop Dose Admin Acetaminophen 650 mg 07/18/22 13:03 07/20/22 14:00 Acetaminophen 325 Mg Tab PO 650 mg Q4H PRN Administration Pain MILD(1-3)/Fever >100.5/BOSE Apixaban 10 mg 07/19/22 22:00 07/20/22 22:10 Apixaban 5 Mg Tab PO 07/26/22 10:01 10 mg Q12HR MANFRED Administration Protocol Apixaban 5 mg 07/26/22 22:00 Apixaban 5 Mg Tab PO Q12HR [facility] Protocol Dextrose 50 ml 07/19/22 18:25 Dextrose 50% In Water (25gm) 50 Ml Syringe IV Q30MIN PRN Hypoglycemia Protocol Sodium Chloride 1,000 mls @ 30 mls/hr 07/18/22 13:45 Nacl 0.9% 1000 Ml IV DIRECT MANFRED Sodium Chloride 500 mls @ 0 mls/hr 07/21/22 08:16 Nacl 0.9% 500 Ml IV 07/21/22 08:17 ONCE ONE As Directed Insulin Human Lispro 0 unit 07/19/22 22:00 07/21/22 07:55 Insulin Lispro 100 Unit/Ml SUB-Q Not Given ACHS [facility] Protocol Morphine Sulfate 2 mg 07/18/22 13:03 Morphine 2 Mg/1 Ml Inj IV Q4H PRN Pain, Moderate (4-6) Morphine Sulfate 4 mg 07/18/22 14:04 Morphine 4 Mg/1 Ml Inj IV Q4H PRN Pain , Severe (7-10) Ondansetron HCl 4 mg 07/18/22 14:04 Ondansetron 4 Mg/2 Ml Inj IV Q8H PRN Nausea And Vomiting Sodium Chloride 10 ml 07/18/22 22:00 07/20/22 22:11 Sodium Chloride 0.9% 10 Ml Flush Syringe IV 10 ml BID MANFRED Administration Sodium Chloride 10 ml 07/18/22 13:03 Sodium Chloride 0.9% 10 Ml Flush Syringe IV PRN PRN LINE FLUSH
[2022-07-21] MEDS: APIXABAN 5 MG TAB PO SCH ×2 (10:00→21:45)
[2022-07-21] MEDS ORDERED: SODIUM CHLORIDE 0.9% 500 ML 500 ML IV ONE (11:18)
[2022-07-21] MEDS: ACETAMINOPHEN 325 MG TAB PO PRN (17:14)
[2022-07-22 05:30] LABS: Hematocrit 25.5 % (30.3-42.9); Hemoglobin 8.4 gm/dl (10.1-14.3)
[2022-07-22] MEDS: INSULIN LISPRO 100 UNIT/ML SUB-Q SCH ×2 (07:30→11:30)
[2022-07-22] MEDS: APIXABAN 5 MG TAB PO SCH (09:17)
--- NOTE | 2022-07-22 09:24 | Discharge Summary ---
Providers - Providers Date of Admission: 07/18/22 13:03 Date of discharge: 07/22/22 Attending physician: DAWSON AVILA MD 07/18/22 09:39 Consult to Physician [CONS] Urgent Comment: Consulting Provider: DOM DELGADILLO Physician Instructions: Reason For Exam: syncope, abnl ekg 07/18/22 12:35 Consult to Physician [CONS] Urgent Comment: Consulting Provider: IVET MCMAHON Physician Instructions: Reason For Exam: pulmonary emboli 07/20/22 15:05 Occupational Therapy Evaluate and Treat [CONS] Routine Comment: Reason For Exam: weakness Physical Therapy Evaluation and Treat [CONS] Routine Comment: Reason For Exam: weakness Primary care physician: CORPORATE REPRESENTATIVE Hospitalization Reason for admission: shortness of breath Condition: Stable Hospital course: Interval history: This is a 62-year-old female with CVA, dementia, DM who presented to the emergency department on 07/18 via EMS after being reported to have it hard to fall by family and upon checking on the patient she was found to be on the floor and was placed back in bed when she became less responsive. Upon EMS arrival patient was found to have tachycardia and systolic blood pressure of 70 and received 2 fluid boluses which corrected her hypotension and tachycardia and she initially complained of shortness of breath and chest pain. Chest pain resolved however as she continued to complain of shortness of breath. Of note patient was recently hospitalized in May and June 2022 with symptoms consistent with stroke however MRI was negative on both admissions. EMS also reported a blood glucose of 250. In the emergency department patient was found to have hypokalemia, anemia, acute pulmonary embolism with evidence of right ventricular strain on CT, lactic acidosis, elevated troponins and transaminitis. Patient was admitted to the hospitalist service with consults to cardiology and vascular surgery and received thrombolysis of her bilateral pulmonary emboli. Post EKOS patient was transferred to ICU. Hospital course to date: 07/19: Patient had her EKOS catheter removed, patient was started on Eliquis. Patient was hypokalemic this morning which was repleted. Patient will be transferred to IMCU. 07/20: No acute events reported overnight. Patient transferred to floor. Patient was started on DOAC yesterday. 07/21: Anemic, hgb: 6.9. No acute signs and symptoms of active bleed. 1 unit prbc ordered. Repeat hgb ordered for tomorrow AM. Possible dc tomorrow if ok with vascular. 07/22: Hgb improved: 8.4. Medically clear for discharge. Discharge home with rx for Eliquis. Eliquis 10 mg po bid until 07/26. Start Eliquis 5 mg po bid 07/27. Instructed to follow up OP with PCP. Assessment and plan: This is a 62-year-old female with CVA, dementia, DM admitted with bilateral near occlusive pulmonary embolism s/p EKOS Neuro: H/O CVA, dementia -Reorientation as needed -Maintain sleep-wake cycle -As needed analgesia -Continue supportive care -PT/OT consulted, appreciate recommendations Cardiac: Syncope, NSTEMI suspected type II -Cardiology consulted, appreciate recommendations -Blood pressure monitoring per protocol -05/2022 echocardiogram shows 60 to 65% EF, borderline pulmonary hypertension, no PFO -07/19/2022 echo showed EF of 60 to 65%, no pericardial effusion Respiratory: Acute hypoxic respiratory failure (resolved) -Presented with complaints of shortness of breath -[facility] consulted, appreciate recommendations -Weaned to nasal cannula -Supplemental oxygen as needed -SPO2 monitor per protocol -Pulmonary hygiene GI: Obesity, mild protein calorie malnutrition -Dietary supplementation -CC diet -PPI : NAD -Monitor intake and output -Renally dose medications -Avoid nephrotoxic medications ID: NAD -Monitor WBC and temperature curve Endo: H/O DM -CC diet -Avoid hypoglycemia -SSI -Accu-Cheks q. ACHS Heme: Large Bilateral pulmonary embolism -CTA chest showed large bilateral pulmonary emboli with evidence of right heart strain -Vascular surgery, cardiology consulted, appreciate recommendations -S/p EKOS thrombolysis -S/p heparin drip -Eliquis PO -Trend CBC -Transfuse hemoglobin less than 7 -SCDs to BLE while in bed -Recommend outpatient hematology work-up #Advance care planning Disease education conducted, care plan discussed, diagnoses discussed, prognosis discussed, patient is full code, patient acknowledges understanding and agree with care plan, +30 minutes. Disposition: HOME / SELF CARE / HOMELESS Final Discharge Diagnosis (Prints w/discharge instructions): pulmonary embolism Time spent for discharge: 35 Core Measure Documentation - Palliative Care Palliative Care/ Comfort Measures: Not Applicable - Core Measures Any of the following diagnoses?: DVT/PE - VTE Discharge Requirements Deep Vein Thrombosis/Pulmonary Embolism Present on Admission: Yes Has pt received <5 days of overlap therapy or INR<2.0: Yes Anticoagulant overlap therapy prescribed at discharge: Yes Exam - Physical Exam Narrative exam: General appearance: Present: no acute distress, obese - EENT Eyes: Present: PERRL, EOM intact ENT: hearing intact, clear oral mucosa - Neck Neck: Present: normal ROM - Respiratory Respiratory effort: normal Respiratory: bilateral: CTA - Cardiovascular Rhythm: regular Heart Sounds: Present: S1 & S2. Absent: systolic murmur, diastolic murmur - Extremities Extremities: no ischemia, pulses intact, pulses symmetrical, No edema, normal temperature, normal color Peripheral Pulses: within normal limits - Abdominal General gastrointestinal: soft, non-tender, non-distended, normal bowel sounds - Integumentary Integumentary: Present: warm, dry - Psychiatric Psychiatric: cooperative - Neurologic Neurologic: CNII-XII intact, no focal deficits, moves all extremities - Allied Health Allied health notes reviewed: nursing, social work - Constitutional Vitals: Temp Pulse Resp BP Pulse Ox 98.3 F 74 17 136/74 99 07/21/22 20:22 07/21/22 20:22 07/21/22 20:22 07/21/22 20:22 07/21/22 20:22 Plan Follow up with: PRIMARY CARE, [Primary Care Provider] - 3-5 Days Prescriptions: Apixaban [Eliquis] 10 mg PO Q12HR 5 Days #9 tablet Apixaban [Eliquis] 5 mg PO Q12HR 30 Days #60 tablet
[2022-07-22 13:02] VITALS: BP 143/60
[2022-07-26] MEDS ORDERED: APIXABAN 5 MG TAB PO SCH (22:00)
== END 2022-07-22 14:00 | disposition home or self-care (01) | DRG 175 ==
LOC: ED 07:44 → MERGE 13:03 → 4A 13:03 → CC1 13:46 → 3A 07-20 14:54
PROVIDERS: ADMIT Internal Medicine; ATTEND Internal Medicine
PROC: 02HR33Z Insertion of Infusion Device into Left Pulmonary Artery, Percutaneous Approach (ICD-10-PCS; 2022-07-18)
PROC: 02HQ33Z Insertion of Infusion Device into Right Pulmonary Artery, Percutaneous Approach (ICD-10-PCS; 2022-07-18)
PROC: 30233N1 Transfusion of Nonautologous Red Blood Cells into Peripheral Vein, Percutaneous Approach (ICD-10-PCS; principal; 2022-07-21)
DX: I26.99 Other pulmonary embolism without acute cor pulmonale (principal); I21.A1 Myocardial infarction type 2; J96.01 Acute respiratory failure with hypoxia; E44.0 Moderate protein-calorie malnutrition; E87.2 Acidosis; R55 Syncope and collapse; I95.9 Hypotension, unspecified; Z68.39 Body mass index [BMI] 39.0-39.9, adult; E66.9 Obesity, unspecified; F03.90 Unspecified dementia, unspecified severity, without behavioral disturbance, psychotic disturbance, mood disturbance, and anxiety; I12.9 Hypertensive chronic kidney disease with stage 1 through stage 4 chronic kidney disease, or unspecified chronic kidney disease; E11.22 Type 2 diabetes mellitus with diabetic chronic kidney disease; N18.9 Chronic kidney disease, unspecified; E11.40 Type 2 diabetes mellitus with diabetic neuropathy, unspecified; D64.9 Anemia, unspecified; E87.6 Hypokalemia; Z88.0 Allergy status to penicillin; Z86.73 Personal history of transient ischemic attack (TIA), and cerebral infarction without residual deficits
CPT/HCPCS: 36415; 37211; 71045; 71275; 75743; 80048; 80053; 80061; 82140; 82271; 82550; 82553; 82565; 82962; 83735; 83880; 84484; 85014; 85018; 85025; 85027; 85049; 85379; 85384; 85520; 85610; 85730; 86850; 86900; 86901; 86920; 87040; 93005; 93306; 99406; G0378; J3490; Q9967; C1757; C1769; C1894; C8929; J1644; J1815; J2250; J2997; J3010; J7030; J7040; P9016